=== PATIENT | female | born 1965 | race Caucasian/White ===

== ENCOUNTER → 2019-08-05 15:03 | Outpatient (BNVA) | payer SELFPAY | PROVIDERS: Family Provider Nurse Practitioner; PCP Nurse Practitioner; Visit Provider Nurse Practitioner | DX: E11.65 Type 2 diabetes mellitus with hyperglycemia (principal); Z79.4 Long term (current) use of insulin; I10 Essential (primary) hypertension; M50.020 Cervical disc disorder with myelopathy, mid-cervical region, unspecified level; M50.30 Other cervical disc degeneration, unspecified cervical region | CPT/HCPCS: 81000 ==

== ENCOUNTER → 2019-09-07 11:15 | Outpatient (BNVA) | payer SELFPAY | PROVIDERS: Family Provider Nurse Practitioner; PCP Nurse Practitioner; Visit Provider Nurse Practitioner | DX: E11.65 Type 2 diabetes mellitus with hyperglycemia (principal); Z79.4 Long term (current) use of insulin; I10 Essential (primary) hypertension | CPT/HCPCS: 80053; 80061; 83036; 84443 ==

== ENCOUNTER → 2019-11-30 15:26 | Outpatient (BNVA) | payer SELFPAY | PROVIDERS: Family Provider Nurse Practitioner; PCP Nurse Practitioner; Visit Provider Nurse Practitioner | DX: M54.9 Dorsalgia, unspecified (principal); M54.2 Cervicalgia; G89.29 Other chronic pain | CPT/HCPCS: 72072; 72100 ==

== ENCOUNTER → 2020-02-13 14:07 | Outpatient (BNVA) | payer SELFPAY | PROVIDERS: Family Provider Nurse Practitioner; PCP Nurse Practitioner; Visit Provider Nurse Practitioner | DX: E11.65 Type 2 diabetes mellitus with hyperglycemia (principal); Z79.4 Long term (current) use of insulin; M50.020 Cervical disc disorder with myelopathy, mid-cervical region, unspecified level; I10 Essential (primary) hypertension; F17.200 Nicotine dependence, unspecified, uncomplicated | CPT/HCPCS: 80053; 80061; 81000; 83036 ==

== ENCOUNTER → 2020-06-11 16:06 | Outpatient (BNVA) | payer SELFPAY | PROVIDERS: Family Provider Nurse Practitioner; PCP Nurse Practitioner; Visit Provider Nurse Practitioner | DX: E11.65 Type 2 diabetes mellitus with hyperglycemia (principal); J06.9 Acute upper respiratory infection, unspecified; Z79.4 Long term (current) use of insulin | CPT/HCPCS: 80053; 80061; 83036 ==

== ENCOUNTER → 2020-10-05 16:14 | Outpatient (BNVA) | payer SELFPAY | PROVIDERS: Family Provider Nurse Practitioner; PCP Nurse Practitioner; Visit Provider Nurse Practitioner Family | DX: M25.471 Effusion, right ankle (principal); M65.871 Other synovitis and tenosynovitis, right ankle and foot; M25.571 Pain in right ankle and joints of right foot | CPT/HCPCS: 73610 ==

== ENCOUNTER → 2020-10-22 11:11 | Outpatient (BNVA) | payer SELFPAY | PROVIDERS: Family Provider Nurse Practitioner; PCP Nurse Practitioner; Visit Provider Nurse Practitioner | DX: E11.65 Type 2 diabetes mellitus with hyperglycemia (principal); M50.020 Cervical disc disorder with myelopathy, mid-cervical region, unspecified level; I10 Essential (primary) hypertension; L30.8 Other specified dermatitis; Z79.4 Long term (current) use of insulin | CPT/HCPCS: 80053; 83036; 85025 ==

== ENCOUNTER → 2021-03-26 14:14 | Outpatient (BNVA) | payer SELFPAY | PROVIDERS: Family Provider Nurse Practitioner; PCP Nurse Practitioner; Visit Provider Nurse Practitioner | DX: E11.65 Type 2 diabetes mellitus with hyperglycemia (principal); Z79.4 Long term (current) use of insulin | CPT/HCPCS: 80053; 80061; 82043; 83036 ==

== ENCOUNTER → 2021-06-20 14:46 | Outpatient (BNVA) | payer SELFPAY | PROVIDERS: Family Provider Nurse Practitioner; PCP Nurse Practitioner; Visit Provider Nurse Practitioner | DX: L40.9 Psoriasis, unspecified (principal); E11.65 Type 2 diabetes mellitus with hyperglycemia; M50.020 Cervical disc disorder with myelopathy, mid-cervical region, unspecified level; Z79.4 Long term (current) use of insulin; I10 Essential (primary) hypertension | CPT/HCPCS: 81000 ==

== ENCOUNTER → 2021-06-24 08:39 | Outpatient (BNVA) | payer SELFPAY | PROVIDERS: Family Provider Nurse Practitioner; PCP Nurse Practitioner; Visit Provider Nurse Practitioner | DX: E11.65 Type 2 diabetes mellitus with hyperglycemia (principal); L40.9 Psoriasis, unspecified; Z79.4 Long term (current) use of insulin | CPT/HCPCS: 80053; 80061; 83036; 85025; 85651; 86140 ==

== ENCOUNTER → 2021-10-09 15:33 | Outpatient (BNVA) | payer SELFPAY | PROVIDERS: Family Provider Nurse Practitioner; PCP Nurse Practitioner; Visit Provider Nurse Practitioner | DX: M50.020 Cervical disc disorder with myelopathy, mid-cervical region, unspecified level (principal); E11.65 Type 2 diabetes mellitus with hyperglycemia; Z79.4 Long term (current) use of insulin; E78.2 Mixed hyperlipidemia; I10 Essential (primary) hypertension | CPT/HCPCS: 80053; 80061; 81000; 83036 ==

== ENCOUNTER → 2022-02-24 14:48 | Outpatient (BNVA) | payer BC, SELFPAY | PROVIDERS: Family Provider Nurse Practitioner; PCP Nurse Practitioner; Visit Provider Nurse Practitioner Family | DX: R50.9 Fever, unspecified (principal); Z20.822 Contact with and (suspected) exposure to COVID-19 | CPT/HCPCS: 87400; 87426 ==

== ENCOUNTER → 2022-03-07 10:22 | Outpatient (BNVA) | payer BC, SELFPAY | PROVIDERS: Family Provider Nurse Practitioner; PCP Nurse Practitioner; Visit Provider Nurse Practitioner | DX: E11.65 Type 2 diabetes mellitus with hyperglycemia (principal); Z79.4 Long term (current) use of insulin | CPT/HCPCS: 80053; 80061; 81000; 83036; 84443 ==

== ENCOUNTER → 2022-05-26 14:02 | Outpatient (BNVA) | payer OTHER, BC, SELFPAY | PROVIDERS: Family Provider Nurse Practitioner; PCP Nurse Practitioner; Visit Provider Nurse Practitioner Family | DX: E78.2 Mixed hyperlipidemia (principal); E11.65 Type 2 diabetes mellitus with hyperglycemia; Z79.4 Long term (current) use of insulin; I10 Essential (primary) hypertension; E66.9 Obesity, unspecified | CPT/HCPCS: 80053; 80061; 83036 ==

== ENCOUNTER → 2022-09-26 12:08 | Outpatient (BNVA) | payer OTHER, BC, SELFPAY | PROVIDERS: Family Provider Nurse Practitioner; PCP Nurse Practitioner Family; Visit Provider Nurse Practitioner Family | DX: E11.65 Type 2 diabetes mellitus with hyperglycemia (principal); Z79.4 Long term (current) use of insulin; I10 Essential (primary) hypertension; F19.91 Other psychoactive substance use, unspecified, in remission; E55.9 Vitamin D deficiency, unspecified | CPT/HCPCS: 80053; 80061; 82306; 82607; 83036; 83735; 84443; 85025; 86705; 86706; 86709; 86803; 87340; 87806 ==

== ENCOUNTER 2022-10-31 09:06 | Outpatient (CLI) | payer OTHER, BC, SELFPAY ==
[2022-10-31 09:50] LABS: Basophils # 0.1 10^3/uL (0.0-0.1); Basophils % 0.6 %; Eosinophils # 0.3 10^3/uL (0.0-0.8); Eosinophils % 3.5 %; Hematocrit 41.2 % (37.0-47.0); Hemoglobin 12.1 g/dL (11.5-15.3); Lymphocytes # 2.2 10^3/uL (0.8-4.8); Lymphocytes % 27.6 %; Mean Corpuscular HGB Conc 29.4 g/dL (30.0-36.0); Mean Corpuscular Volume 88.4 fl (81-99); Mean Platelet Volume 9.4 fL (7.4-10.4); Monocytes # 0.6 10^3/uL (0.2-0.9); Monocytes % 6.8 %; Neutrophils # 4.91 10^3/uL (1.8-7.7); Nucleated Red Blood Cells % 0 %; Platelet Count 237 10^3/cmm (130-400); Red Blood Count 4.66 10^6/uL (4.1-5.3); Red Cell Distribution Width 16.4 % (12.1-15.1); White Blood Count 8.1 10^3/uL (4.0-10.0)
[2022-10-31 10:14] LABS: Anion Gap 12.3 (5-19); Blood Urea Nitrogen 15 mg/dL (6-20); Calcium 9.9 mg/dL (8.5-10.5); Carbon Dioxide 28 mmol/L (22-29); Chloride 106 mmol/L (98-107); Glomerular Filtration Rate 65.2 mL/min (90-130); Glucose 215 mg/dL (65-115); Osmolality Calculated 301 mOsm/kg (285-295); Potassium 4.3 mmol/L (3.5-5.1); Sodium 142 mmol/L (136-145)
[2022-11-04 12:09] LABS: Quantiferon Mitogen >10.00 IU/mL; Quantiferon Nil 0.03 IU/mL; Quantiferon Plus TB1 0.01 IU/mL; Quantiferon Plus TB2 0.01 IU/mL; Quantiferon TB Gold NEGATIVE (NEGATIVE)
== END 2022-10-31 09:07 | disposition home or self-care (01) ==
PROVIDERS: Family Provider Nurse Practitioner; PCP Nurse Practitioner Family; Visit Provider Nurse Practitioner Family
DX: L40.0 Psoriasis vulgaris (principal)
CPT/HCPCS: 36415; 80048; 85025; 86480

== ENCOUNTER 2022-12-01 09:05 | Outpatient (CLI) | payer OTHER, BC, SELFPAY ==
--- NOTE | 2022-12-01 09:13 | XR_ITS ---
WS: [id number] Exam: XR ankle LT min 3V* [id number] Date/Time of Exam: 12/01/2022 9:18 AM Reason For Exam: M79.673 - Pain in unspecified foot No acute fracture or dislocation. Soft tissues are unremarkable. There appears to be thickening and c alcification in the Achilles tendon that might be seen with chronic tendinitis. Prominent calcaneal s purs. IMPRESSION: 1. No fracture or dislocation. 2. Thickening and calcification in the lower Achilles tendon that might be seen with chronic Achilles tendinitis.
== END 2022-12-01 09:06 | disposition home or self-care (01) ==
PROVIDERS: PCP Nurse Practitioner Family; Visit Provider Nurse Practitioner Family
DX: M65.872 Other synovitis and tenosynovitis, left ankle and foot (principal); M79.672 Pain in left foot
CPT/HCPCS: 73610

== ENCOUNTER → 2022-12-31 12:15 | Outpatient (BNVA) | payer OTHER, BC, SELFPAY | PROVIDERS: PCP Nurse Practitioner Family; Visit Provider Nurse Practitioner Family | DX: R53.83 Other fatigue; E11.65 Type 2 diabetes mellitus with hyperglycemia; Z79.4 Long term (current) use of insulin; E55.9 Vitamin D deficiency, unspecified; Z20.822 Contact with and (suspected) exposure to COVID-19 | CPT/HCPCS: 80053; 82306; 82607; 83036; 84443; 85025; 87426 ==

== ENCOUNTER 2023-01-19 23:39 | Emergency (ER) | payer OTHER, SELFPAY ==
[2023-01-19 23:45] VITALS: BP 182/100; PULSE 125; RESP 18; TEMP 36.8; O2SAT 96; BMI 34.0
--- NOTE | 2023-01-19 23:59 | CTR_ITS ---
PROCEDURE INFORMATION: Exam: CT Head Without Contrast Exam date and time: 01/20/2023 12:17 AM Age: 57 years old Clinical indication: Injury or trauma; Fall; Work related; Blunt trauma (contusions or hematomas); Without loss of consciousness; Additional info: Fall, fall from 2 steps, concrete, swelling to left posterior TECHNIQUE: Imaging protocol: Computed tomography of the head without contrast. Radiation optimization: All CT scans at this facility use at least one of these dose optimization techniques: automated exposure control; mA and/or kV adjustment per patient size (includes targeted exams where dose is matched to clinical indication); or iterative reconstruction. REPORTING DATA: Count of CT and Cardiac NM exams in prior 12 months: This patient has received 0 known CTs and 0 known cardiac nuclear medicine studies in the 12 months prior to the current study. COMPARISON: CT head wo con* [id number] 05/29/2017 6:40 PM RADIATION DOSE METRICS: Total DLP (mGy-cm): 1037.18 FINDINGS: Brain: Mild atrophy and mild white matter chronic microvascular changes are noted. No hemorrhage or evidence of acute infarction. Cerebral ventricles: No ventriculomegaly. Paranasal sinuses: Visualized sinuses are unremarkable. No fluid levels. Mastoid air cells: Visualized mastoid air cells are well aerated. Bones/joints: Unremarkable. No acute fracture. Soft tissues: Left parietal-occipital scalp hematoma is noted. CT/CT head wo con* [id number] IMPRESSION: No acute intracranial abnormality.
--- NOTE | 2023-01-20 00:04 | ED_ITS ---
HPI - Fall General: Chief Complaint: Fall Stated Complaint: head injury Time Seen by Provider: 01/19/23 23:40 Source: patient Mode of arrival: ambulatory Limitations: no limitations History of Present Illness: Patient presents to the emergency department today for evaluation treatment of injury sustained after falling while at work tonight. Patient states while she was working she was walking down some steps. She states she fell on the last 2nd or 3rd step of the staircase. She indicated she hit the back left side of her head on the concrete floor. Patient denies loss of consciousness but has had dizziness and tenderness of her head. Patient takes an 81 mg aspirin daily. She is denying nausea or vomiting at this time. She is not noticing any other areas of pain at this time- including neck or back pain per her report. She states she did try and get in contact with her employer but was unsuccessful. Patient received a ride to the emergency department from friends. Review of Systems General: Reports: 10 or more systems reviewed and unremarkable except in HPI and below PFSH ED PFSH: Medical History Cervical disc disorder with myelopathy of mid-cervical region Current smoker DDD (degenerative disc disease), cervical Diabetes mellitus with hyperglycemia, with long-term current use of insulin Essential (primary) hypertension Hyperlipidemia, mixed Noncompliance with dietary restriction Obesity Psoriasis of scalp Vitamin D insufficiency Surgical History History of appendectomy History of tonsillectomy at the age of 7 History of tubal ligation Family History Other Cancer Diabetes Stroke Social History Smoking and tobacco/nicotine status: former use of tobacco/nicotine Second hand smoke exposure: No Alcohol intake: never Substance/Drug Use: never Adopted: No Caregiver/support person: No Lives independently: Yes Household members: spouse Housing: House Marital status: Number of children: 4 service: No Current occupational status: unemployed Do you think of yourself as: Straight/Heterosexual Current gender identity: Female Physical Exam Const: COMMON NORMALS: no acute distress, patient oriented x3 and alert HENMT: HEAD & SCALP: contusion and scalp tenderness; no Merida's sign, no palpable skull fracture and no raccoon eyes FACE & SINUS: normal facial exam Eye: COMMON NORMALS: Equal, round and reactive pupils present, EOMs intact bilaterally and conjunctivae normal CONJUNCTIVA: Yes conjunctivae normal PUPIL: Yes Equal, round and reactive pupils present Neck/C-Spine: COMMON NORMALS: full ROM, no meningeal signs and no JVD Lymph: LYMPHATIC: no lymphadenopathy noted Resp: COMMON NORMALS: normal respiratory effort, No retractions and No use of accessory muscles Cardio: COMMON NORMALS: no JVD and regular rate RATE: regular rate : COMMON NORMALS: Yes no CVA tenderness BLADDER/KIDNEY EXAM: Yes no CVA tenderness Back/Pelvis: COMMON NORMALS: no CVA tenderness, thoracic and lumbar spine normal to inspection and thoraco-lumbar ROM normal Extremity: COMMON NORMALS: normal to inspection, full ROM and no pedal edema NARRATIVE EXTREMITY EXAM: Patient is independently ambulatory and weightbearing here in the emergency department. Neuro: COMMON NORMALS: patient oriented x3 SENSORIUM/ORIENTATION: Yes alert MENINGEAL SIGNS: Yes no meningeal signs CRANIAL NERVES: Yes CN normal except as noted SPEECH: speech normal Skin: COMMON NORMALS: no rashes or lesions noted and turgor normal GENERAL SKIN EXAM: no rashes or lesions noted and turgor normal OTHER: No signs of bruising or abrasions but there is a palpable area of swelling noted to the posterior left skull. No depression of the skull in this area. Course Vital Signs: Vital signs: Vital Signs Temperature 98.3 F 01/19/23 23:45 Pulse Rate 125 H 01/20/23 00:05 Respiratory Rate 18 01/20/23 00:05 Blood Pressure 157/87 01/20/23 00:05 Pulse Oximetry 94 01/20/23 00:05 Oxygen Delivery Me thod Room Air 01/20/23 00:05 MDM - Fall Medical Decision Making Given the large amount of swelling in the posterior scalp region and, since patient does take an 81 mg aspirin with associated symptoms of dizziness after her fall, we did proceed on with a CT examination of the head. CT reveals no signs of an intracranial abnormality or bleed but does confirm the findings of a scalp hematoma. Given the patient's symptoms after hitting her head, patient most likely has symptoms of a mild concussion and warned her that symptoms may last a few days or few weeks. For that reason she needs to be seen and reevaluated in 48 hours by her primary care doctor or the occupational medicine doctor to continue monitoring any residual concussion symptoms. Information regarding concussions provided as patient needs to rest in cool, quiet, and dark environments. She is encouraged to avoid excessive screen time. Encouraged prompt reevaluation to the emergency department for sudden onset worst headache of her life, blurred or loss of vision, dizziness without ability to stand or walk or profuse vomiting. [employer] representation was here in the emergency department and collected a urine drug screen. [employer] paperwork was filled out and I indicated that the patient needed to be seen and evaluated by primary care or an occupational medicine doctor of the employer's choice in 48 hours for reevaluation of concussion symptoms for patient would be able to be considered fit for work. Encouraged the patient to follow her employers [employer] protocol and encouraged her to reach out to her employer first thing in the morning to make any upcoming arrangements for follow-up as needed. Patient verbalized understanding and agreement to treatment plan. Differential Diagnosis Likely concussion without loss of consciousness; Unlikely syncope, dislocation of shoulder region, fracture of wrist or concussion with loss of consciousness Lab Data Radiology Impressions Head CT 01/19/23 23:59 IMPRESSION: No acute intracranial abnormality. All radiology interpretation(s) finalized by discharge Discharge Plan Discharge Patient Disposition: Home Clinical Impression: Fall from stairs, Contusion of scalp, Concussion Condition: Stable Prescriptions: New tizanidine 4 mg tablet 4 mg PO Q8H PRN (Reason: muscle spasticity) Qty: 21 0RF No Action aspirin [Aspir-81] 81 mg tablet,delayed release (DR/EC) 81 mg PO QDAY albuterol sulfate [Proventil HFA] 90 mcg/actuation HFA aerosol inhaler 2 puff INHALATION QID albuterol sulfate 2.5 mg /3 mL (0.083 %) solution for nebulization 2.5 mg INHALATION Q4H PRN (Reason: bronchospasm) Qty: 75 5RF (DME) pen needle, diabetic [BD Ultra-Fine Short Pen Needle] 31 gauge x 5/16 needle See Rx Instructions .ROUTE .MEDSUPPLY Qty: 150 5RF Rx Instructions: 5 TIMES DAY nitroglycerin 0.4 mg tablet, sublingual 0.4 mg SUBLINGUAL Q5M PRN (Reason: chest pain) Qty: 20 1RF Rx Instructions: 1 tab every 5 minutes up to 3 times hydrocortisone 2.5 % cream 1 applic topical BID PRN (Reason: skin irritation) Qty: 20 0RF Rx Instructions: Apply to ears twice daily Bevespi Aerosphere 9-4.8 mcg HFA aerosol inhaler 2 puff inhalation Q12H Qty: 10.7 2RF metformin 500 mg tablet extended release 24 hr 1,000 mg PO BID Qty: 120 2RF Farxiga 10 mg tablet 10 mg PO QAM Qty: 30 2RF cholecalciferol (vitamin D3) 50 mcg (2,000 unit) capsule 50 mcg PO DAILY Otezla Starter 10 mg (4)-20 mg (4)-30 mg (47) tablets,dose pack See Rx Instructions PO PER PKG DIR Qty: 55 0RF Rx Instructions: PO PER PKG DIR Levemir FlexPen 100 unit/mL (3 mL) insulin pen See Rx Instructions .ROUTE .COMPLEX Qty: 30 2RF Dose Instruction: INJECT 50 UNITS SUBCUTANEOUSLY TWICE DAILY Rx Instructions: INJECT 50 UNITS SUBCUTANEOUSLY TWICE DAILY cyclobenzaprine 10 mg tablet See Rx Instructions .ROUTE .COMPLEX Qty: 90 2RF Dose Instruction: TAKE ONE TABLET BY MOUTH THREE TIMES DAILY NEEDED FOR MUSCLE SPASMS Rx Instructions: TAKE ONE TABLET BY MOUTH THREE TIMES DAILY NEEDED FOR MUSCLE SPASMS Victoza 3-Walter 0.6 mg/0.1 mL (18 mg/3 mL) pen injector See Rx Instructions .ROUTE .COMPLEX Qty: 9 2RF Dose Instruction: INJECT 1.8mg SUBCUTANEOUSLY DAILY Rx Instructions: INJECT 1.8mg SUBCUTANEOUSLY DAILY isosorbide mononitrate 60 mg tablet extended release 24 hr See Rx Instructions .ROUTE .COMPLEX Qty: 30 2RF Dose Instruction: TAKE ONE TABLET BY MOUTH EVERY MORNING Rx Instructions: TAKE ONE TABLET BY MOUTH EVERY MORNING fenofibrate nanocrystallized 145 mg tablet See Rx Instructions .ROUTE .COMPLEX Qty: 30 2RF Dose Instruction: TAKE ONE TABLET BY MOUTH DAILY; STOP lipitor Rx Instructions: TAKE ONE TABLET BY MOUTH DAILY; STOP lipitor duloxetine 30 mg capsule,delayed release(DR/EC) See Rx Instructions .ROUTE .COMPLEX Qty: 60 2RF Dose Instruction: TAKE ONE CAPSULE BY MOUTH TWICE DAILY Rx Instructions: TAKE ONE CAPSULE BY MOUTH TWICE DAILY metoprolol tartrate 50 mg tablet See Rx Instructions .ROUTE .COMPLEX Qty: 60 2RF Dose Instruction: TAKE ONE TABLET BY MOUTH TWICE DAILY Rx Instructions: TAKE ONE TABLET BY MOUTH TWICE DAILY furosemide 20 mg tablet See Rx Instructions .ROUTE .COMPLEX Qty: 60 2RF Dose Instruction: TAKE ONE TABLET BY MOUTH TWICE DAILY Rx Instructions: TAKE ONE TABLET BY MOUTH TWICE DAILY potassium chloride [Klor-Con 8] 8 mEq tablet extended release See Rx Instructions .ROUTE .COMPLEX Qty: 30 2RF Dose Instruction: TAKE ONE CAPSULE BY MOUTH EVERY DAY Rx Instructions: TAKE ONE CAPSULE BY MOUTH EVERY DAY Discharge Orders: Discharge ED (Routine); Ordered 01/20/23 Ordered By: Kusum Macias Referrals: Joie Luz FNP [Primary Care Provider] - Discharge Diet: Usual diet Discharge Activity: Increase activity as tolerated Patient Instructions: Concussion/Head Injury - Adult, Post Concussion Syndrome (ED), Scalp Contusion in Adults (ED), Pain Management Activity Restrictions/Additional Instructions: CT today reveals no signs of any intracranial abnormality. However, it is obvious you have quite a bit of edema and swelling to the back of your head from the impact after your fall. Symptoms are consistent with mild concussion. Concussions can occur with or without loss of consciousness but are simply diagnosed by impact to the head resulting in any of the symptoms involving nausea, vomiting, blurry vision, dizziness, headache, brain fog, or mental fatigue. The symptoms can last a couple days or couple of weeks. I have given you some information regarding concussions for you to keep an eye on at home. If you develop the worst headache of your life, begin having profuse vomiting or so dizzy you cannot stand and walk you should be seen and reevaluated again. Otherwise, we do recommend a follow-up appoint with your primary care doctor every few days until symptoms of concussion fully resolve. We are providing you a prescription for some muscle relaxants. Since you are already taking aspirin daily, it is not recommended that you take additional NSAIDs. You may wish to use Tylenol and apply ice packs to the back of your head. Follow-up with occupational medicine per your employer's [employer] policy. Stand Alone Forms: Work/School Release Coding Level of Care Code ED Assistance Representative for Eduardo Varma
[2023-01-20 00:05] VITALS: BP 157/87; PULSE 125; RESP 18; O2SAT 94
[2023-01-20] MEDS: ketorolac 30 mg/mL INJ IVP (00:56)
[2023-01-20] MEDS: orphenadrine 30 mg/mL Inj 2 mL 60 MG IVP (00:56)
[2023-01-20 01:12] VITALS: BP 175/94; PULSE 126; RESP 18; O2SAT 96
== END 2023-01-20 01:13 | disposition home or self-care (01) ==
PROVIDERS: Emergency Provider Physician Assistant; PCP Nurse Practitioner Family
DX: S00.03XA Contusion of scalp, initial encounter (principal); S06.0XAA Concussion with loss of consciousness status unknown, initial encounter; Z79.82 Long term (current) use of aspirin; Z79.4 Long term (current) use of insulin; Z79.84 Long term (current) use of oral hypoglycemic drugs; E11.9 Type 2 diabetes mellitus without complications; I10 Essential (primary) hypertension; E78.2 Mixed hyperlipidemia; Z87.891 Personal history of nicotine dependence; W10.8XXA Fall (on) (from) other stairs and steps, initial encounter; Y99.0 Civilian activity done for income or pay
CPT/HCPCS: 70450; 96374; 96375; 99285; J1885; J2360

== ENCOUNTER → 2023-04-01 16:00 | Outpatient (BNVA) | payer OTHER, SELFPAY | PROVIDERS: PCP Nurse Practitioner Family; Visit Provider Nurse Practitioner Family | DX: F32.A Depression, unspecified (principal); G47.10 Hypersomnia, unspecified; E11.65 Type 2 diabetes mellitus with hyperglycemia; Z79.4 Long term (current) use of insulin; E55.9 Vitamin D deficiency, unspecified; F33.1 Major depressive disorder, recurrent, moderate; F43.10 Post-traumatic stress disorder, unspecified; I10 Essential (primary) hypertension; E78.2 Mixed hyperlipidemia; M54.9 Dorsalgia, unspecified; L40.9 Psoriasis, unspecified | CPT/HCPCS: 80053; 80061; 82306; 83036; 84443; 85025 ==

== ENCOUNTER → 2023-05-01 11:36 | Outpatient (BNVA) | payer OTHER, SELFPAY | PROVIDERS: PCP Nurse Practitioner Family; Visit Provider Nurse Practitioner Family | DX: M54.9 Dorsalgia, unspecified (principal); E11.65 Type 2 diabetes mellitus with hyperglycemia; Z79.4 Long term (current) use of insulin; E83.52 Hypercalcemia; Z79.899 Other long term (current) drug therapy | CPT/HCPCS: 82310; 83970; 85025 ==

== ENCOUNTER → 2023-05-06 13:41 | Outpatient (BNVA) | payer OTHER, SELFPAY | PROVIDERS: PCP Nurse Practitioner Family; Visit Provider Nurse Practitioner Family | DX: D64.9 Anemia, unspecified (principal) | CPT/HCPCS: 82607; 82728; 82746; 83550; 85025 ==

== ENCOUNTER → 2023-05-08 11:44 | Outpatient (BNVA) | payer OTHER, SELFPAY | PROVIDERS: PCP Nurse Practitioner Family; Visit Provider Nurse Practitioner Family | DX: M47.894 Other spondylosis, thoracic region (principal); M47.896 Other spondylosis, lumbar region; M47.897 Other spondylosis, lumbosacral region | CPT/HCPCS: 72072; 72100 ==

== ENCOUNTER → 2023-05-11 15:52 | Outpatient (BNVA) | payer OTHER, SELFPAY | PROVIDERS: PCP Nurse Practitioner Family; Visit Provider Nurse Practitioner Family | DX: M54.9 Dorsalgia, unspecified (principal); D64.9 Anemia, unspecified; Z79.899 Other long term (current) drug therapy | CPT/HCPCS: 82270 ==

== ENCOUNTER 2023-05-26 12:48 | Emergency (ER) | payer OTHER, SELFPAY ==
[2023-05-26 13:10] VITALS: BP 131/77; PULSE 84; RESP 18; TEMP 36.7; O2SAT 95; BMI 33.4
--- NOTE | 2023-05-26 13:20 | XRR_ITS ---
PROCEDURE INFORMATION: Exam: XR Left Wrist Exam date and time: 05/26/2023 1:48 PM Age: 57 years old Clinical indication: Injury or trauma; Fall; Blunt trauma (contusions or hematomas); Wrist; Left; Additional info: Fall/injury TECHNIQUE: Imaging protocol: Radiologic exam of the left wrist. Views: 3 or more views. COMPARISON: No relevant prior studies available. FINDINGS: Bones/joints: Mild negative ulnar variance. Mild triscaphe degenerative change. Mild distal radioulnar joint degenerative change. No acute fracture or dislocation. Soft tissues: Soft tissue swelling is present greatest along the radial aspect of the wrist and distal forearm. XR/XR wrist LT min 3V* [id number] IMPRESSION: Marked soft tissue swelling with no acute fracture evident.
--- NOTE | 2023-05-26 13:21 | ED_ITS ---
HPI - Extremity Injury (Upper) General: Chief Complaint: Extremity Injury, Upper Stated Complaint: Left wrist pain Time Seen by Provider: 05/26/23 13:00 Source: patient Mode of arrival: ambulatory Limitations: no limitations History of Present Illness: Patient is a 57-year-old female presents to ED today for evaluation of a left wrist injury that she sustained just prior to arrival. Patient states she was taking her dog out on the leash when the dog pulled/yanked on the leash and she somehow got her left wrist caught between a door and a door jam. No fall. She reports pain/swelling to left wrist joint. No other injuries reported at this time. Denies numbness/tingling/loss of sensation/color or temperature changes. MD complaint: injury to: left and wrist Onset (ago): hour(s) Other Extremity Injury: Left: wrist Place: home Severity: moderate Relieving factors: immobilization Exacerbating factors: movement of extremity Context: direct blow and crush Associated symptoms: Reports no associated symptoms Review of Systems Musc: Reports: joint pain (L wrist), joint swelling (L wrist) and limited range of motion (L wrist); Denies: extremity pain, extremity swelling, joint redness or joint warmth Neuro: Denies: numbness in extremities or sensory changes PFSH ED PFSH: Medical History Hyperlipidemia, mixed Psoriasis of scalp Noncompliance with dietary restriction Cervical disc disorder with myelopathy of mid-cervical region Diabetes mellitus with hyperglycemia, with long-term current use of insulin Essential (primary) hypertension DDD (degenerative disc disease), cervical Vitamin D insufficiency Current smoker Obesity Surgical History History of tubal ligation History of appendectomy History of tonsillectomy at the age of 7 Family History Other Cancer Diabetes Stroke Social History Smoking and tobacco/nicotine status: former use of tobacco/nicotine Second hand smoke exposure: No Alcohol intake: never Substance/Drug Use: never Adopted: No Caregiver/support person: No Lives independently: Yes Household members: spouse Housing: House Marital status: Number of children: 4 service: No Current occupational status: unemployed Do you think of yourself as: Straight/Heterosexual Current gender identity: Female Physical Exam Const: COMMON NORMALS: no acute distress, patient oriented x3, no limitations, alert and well nourished Extremity: COMMON NORMALS: capillary refill normal GENERAL: Yes normal exam except as noted LEFT UPPER EXTREMITY: Yes wrist (significant swelling throughout L wrist; no obvious bony deformity) Left wrist: Yes ROM (limited secondary to pain) and Yes neurovascular exam (normal) Neuro: COMMON NORMALS: patient oriented x3, moves all extremities, no focal motor deficits and no sensory deficits noted SENSORIUM/ORIENTATION: Yes alert Skin: COMMON NORMALS: no rashes or lesions noted GENERAL SKIN EXAM: no rashes or lesions noted TRAUMA: no lacerations or abrasions Course Vital Signs: Vital signs: Vital Signs Temperature 98.1 F 05/26/23 13:10 Pulse Rate 84 05/26/23 13:10 Respiratory Rate 18 05/26/23 13:10 Blood Pressure 131/77 05/26/23 13:10 Pulse Oximetry 95 05/26/23 13:10 Oxygen Delivery Me thod Room Air 05/26/23 13:10 MDM - Extremity Injury (Upper) Medical Decision Making XR negative. Recommend RICE therapy. Follow up with PCP in 1-2 weeks for continued pain. Lab Data Radiology Impressions Wrist X-Ray 05/26/23 13:20 IMPRESSION: Marked soft tissue swelling with no acute fracture evident. All radiology interpretation(s) finalized by discharge Discharge Plan Discharge Patient Disposition: Home Clinical Impression: Contusion of left wrist Qualifiers: Encounter type: initial encounter Qualified Code(s): S60.212A - Contusion of left wrist, initial encounter Condition: Stable Prescriptions: No Action aspirin [Aspir-81] 81 mg tablet,delayed release (DR/EC) 81 mg PO QDAY (DME) pen needle, diabetic [BD Ultra-Fine Short Pen Needle] 31 gauge x 5/16 needle See Rx Instructions .ROUTE .MEDSUPPLY Qty: 150 5RF Rx Instructions: 5 TIMES DAY nitroglycerin 0.4 mg tablet, sublingual 0.4 mg SUBLINGUAL Q5M PRN (Reason: chest pain) Qty: 20 1RF Rx Instructions: 1 tab every 5 minutes up to 3 times Bevespi Aerosphere 9-4.8 mcg HFA aerosol inhaler 2 puff inhalation Q12H Qty: 10.7 2RF albuterol sulfate [Ventolin HFA] 90 mcg/actuation HFA aerosol inhaler 2 puff inhalation QID PRN (Reason: shortness of breath or wheezing) Qty: 8.5 2RF hydrocortisone 2.5 % cream 1 applic topical BID PRN (Reason: skin irritation) Qty: 20 0RF Rx Instructions: Apply to ears twice daily Farxiga 10 mg tablet 10 mg PO QAM Qty: 30 5RF cholecalciferol (vitamin D3) 50 mcg (2,000 unit) capsule 50 mcg PO DAILY gabapentin 100 mg capsule 100 mg PO BID 30 Days Qty: 60 0RF potassium chloride [Klor-Con 8] 8 mEq tablet extended release See Rx Instructions .ROUTE .COMPLEX Qty: 30 2RF Dose Instruction: TAKE ONE CAPSULE BY MOUTH EVERY DAY Rx Instructions: TAKE ONE CAPSULE BY MOUTH EVERY DAY cyclobenzaprine 10 mg tablet See Rx Instructions .ROUTE .COMPLEX Qty: 90 2RF Dose Instruction: TAKE ONE TABLET BY MOUTH THREE TIMES DAILY NEEDED FOR MUSCLE SPASMS Rx Instructions: TAKE ONE TABLET BY MOUTH THREE TIMES DAILY NEEDED FOR MUSCLE SPASMS Levemir FlexPen 100 unit/mL (3 mL) insulin pen See Rx Instructions .ROUTE .COMPLEX Qty: 30 2RF Dose Instruction: INJECT 50 UNITS SUBCUTANEOUSLY TWICE DAILY Rx Instructions: INJECT 30 UNITS SUBCUTANEOUSLY TWICE DAILY fenofibrate nanocrystallized 145 mg tablet See Rx Instructions .ROUTE .COMPLEX Qty: 30 2RF Dose Instruction: TAKE ONE TABLET BY MOUTH DAILY; STOP lipitor Rx Instructions: TAKE ONE TABLET BY MOUTH DAILY; STOP lipitor duloxetine 30 mg capsule,delayed release(DR/EC) See Rx Instructions .ROUTE .COMPLEX Qty: 60 2RF Dose Instruction: TAKE ONE CAPSULE BY MOUTH TWICE DAILY Rx Instructions: TAKE ONE CAPSULE BY MOUTH TWICE DAILY furosemide 20 mg tablet See Rx Instructions .ROUTE .COMPLEX Qty: 60 2RF Dose Instruction: TAKE ONE TABLET BY MOUTH TWICE DAILY Rx Instructions: TAKE ONE TABLET BY MOUTH TWICE DAILY metoprolol tartrate 50 mg tablet See Rx Instructions .ROUTE .COMPLEX Qty: 60 2RF Dose Instruction: TAKE ONE TABLET BY MOUTH TWICE DAILY Rx Instructions: TAKE ONE TABLET BY MOUTH TWICE DAILY isosorbide mononitrate 60 mg tablet extended release 24 hr See Rx Instructions .ROUTE .COMPLEX Qty: 30 2RF Dose Instruction: TAKE ONE TABLET BY MOUTH EVERY MORNING Rx Instructions: TAKE ONE TABLET BY MOUTH EVERY MORNING Otezla 30 mg tablet 30 mg PO BID Qty: 60 5RF metformin 500 mg tablet extended release 24 hr See Rx Instructions .ROUTE .COMPLEX Qty: 120 2RF Dose Instruction: TAKE TWO TABLETS BY MOUTH TWICE DAILY Rx Instructions: TAKE TWO TABLETS BY MOUTH TWICE DAILY Discharge Orders: Discharge ED (Routine); Ordered 05/26/23 Ordered By: Lu Johnson Referrals: Joie Luz FNP [Primary Care Provider] - Patient Instructions: Contusion Activity Restrictions/Additional Instructions: As we discussed you need to ice the wrist for 15 to 20 minutes every 1-2 hours, wear your compression bandage, elevate the extremity is much as possible, and rest until the wrist heals. You need to follow-up with your primary care provider in 1 to 2 weeks if you continue to have pain. Coding Level of Care Code ED Roller Inspector for Eduardo Varma
[2023-05-26 14:30] VITALS: PULSE 85; RESP 16; O2SAT 97
== END 2023-05-26 14:31 | disposition home or self-care (01) ==
PROVIDERS: Emergency Provider Physician Assistant; PCP Nurse Practitioner Family
DX: S60.212A Contusion of left wrist, initial encounter (principal); Z79.82 Long term (current) use of aspirin; Z79.4 Long term (current) use of insulin; Z79.84 Long term (current) use of oral hypoglycemic drugs; E78.2 Mixed hyperlipidemia; E11.9 Type 2 diabetes mellitus without complications; I10 Essential (primary) hypertension; Z87.891 Personal history of nicotine dependence; W23.2XXA Caught, crushed, jammed or pinched between a moving and stationary object, initial encounter
CPT/HCPCS: 73110; 99283

== ENCOUNTER 2023-06-10 08:01 | Day surgery (SDC) | payer OTHER, SELFPAY ==
[2023-06-10 08:32] VITALS: BP 178/120; PULSE 101; RESP 16; TEMP 36.8; O2SAT 97; BMI 33.4
[2023-06-10] MEDS: sodium chloride 0.9% 1,000 ML 30 ML IV (08:41)
[2023-06-10 08:47] LABS: Glucose Point of Care 112 mg/dL (70-110)
--- NOTE | 2023-06-10 09:38 | ANES.PREANE2 ---
Pre-Anesthetic Assessment Height/Weight: Height 1.55 m Weight 80.286 kg Temp Pulse Resp BP Pulse Ox O2 Del Method 98.2 F 101 H 16 178/120 97 Room Air 06/10/23 08:32 06/10/23 08:32 06/10/23 08:32 06/10/23 08:32 06/10/23 08:32 06/10/23 08:32 Preop Diagnosis: anemia/screening Operation Date: 06/10/23 09:45 Proposed Procedures p [id number] egd [id number] colon G0105 screen colon H risk D50.9(Not Applicable) - Thom Andrea DO s Colonoscopy(Not Applicable) - Thom Andrea DO Was Clonidine taken within 24 hours: N/A Last intake: Intake Last Liquid Date 06/09/23 Last Liquid Time 23:30 Last Solid Date 06/09/23 Last Solid Time 08:00 Social No alcohol and No tobacco Quit smoking 3 years ago. Recovering meth addict Exam alert, oriented x 3, clear to auscultation bilaterally and regular rate & rhythm Airway Submandibular: within normal limits Cervical ROM: within normal limits Mallampati: Class II Dentition: false History/ROS No significant history except as noted and No significant complaints Pulmonary Chronic Obstructive Pulmonary Disease CV/HEM Hypertension None reported Hepatic None reported GI Gastroesophageal Reflux Disease Metabolic Diabetes Mellitus and Morbid Obesity Musc/sk Osteoarthritis/DJD Anesthetic Plan ASA status: 3 Anesthesia: Anesthesia Evaluation and MAC Risk of > 500 ml blood loss (7ml/kg in children): No Medications/Allergies Home Medications Medication Instructions Recorded Confirmed Last Taken Type aspirin 81 mg tablet,delayed 81 mg PO QDAY 04/26/19 06/08/23 06/07/23 History release (Aspir-) pen needle, diabetic 31 gauge x #150 ea 03/26/21 06/08/23 Unknown Rx 08/19 (BD Ultra-Fine Short Pen Needle) cholecalciferol (vitamin D3) 50 50 mcg PO DAILY 09/26/22 06/08/23 06/08/23 History mcg (2,000 unit) capsule nitroglycerin 0.4 mg sublingual 0.4 mg sublingual Q5M PRN chest 12/31/22 06/08/23 Unknown Rx tablet pain #20 tabs albuterol sulfate 90 mcg/actuation 2 puff inhalation QID PRN 01/27/23 06/08/23 1 Month Ago Rx aerosol inhaler (Ventolin HFA) shortness of breath or wheezing ~05/10/23 #8.5 grams glycopyrrolate 9 mcg-formoterol 2 puff inhalation Q12H #10.7 grams 01/27/23 06/08/23 1 Month Ago Rx 4.8 mcg HFA aerosol inhaler ~05/10/23 (Bevespi Aerosphere) dapagliflozin propanediol 10 mg 10 mg PO QAM #30 tabs 04/01/23 06/08/23 06/08/23 Rx tablet (Farxiga) apremilast 30 mg tablet (Otezla) 30 mg PO BID #60 tabs 04/24/23 06/08/23 06/08/23 Rx gabapentin 100 mg capsule 100 mg PO BID 30 days #60 caps 05/22/23 06/08/23 06/08/23 Rx insulin detemir U-100 100 unit/mL See Rx Instructions .Route 05/31/23 06/08/23 06/08/23 Rx (3 mL) subcutaneous pen (Levemir .COMPLEX #30 mL FlexPen) cyclobenzaprine 10 mg tablet 10 mg PO TID PRN Muscle Spasm 06/08/23 06/08/23 06/08/23 History duloxetine 30 mg capsule,delayed 30 mg PO BID 06/08/23 06/08/23 06/08/23 History release fenofibrate nanocrystallized 145 145 mg PO DAILY 06/08/23 06/08/23 06/08/23 History mg tablet furosemide 20 mg tablet 20 mg PO BID 06/08/23 06/08/23 06/08/23 History isosorbide mononitrate 60 mg 60 mg PO DAILY 06/08/23 06/08/23 06/08/23 History tablet,extended release 24 hr metformin 500 mg tablet,extended 500 mg PO BID 06/08/23 06/08/23 06/08/23 History release 24 hr metoprolol tartrate 50 mg tablet 50 mg PO DAILY 06/08/23 06/08/23 06/08/23 History potassium chloride 8 mEq 20 meq PO DAILY 06/08/23 06/08/23 06/08/23 History tablet,extended release (Klor-Con) Allergies Allergy/AdvReac Type Severity Reaction Status Date / Time oxycodone Allergy ALGY-Difficulty Verified 05/26/23 13:08 Breathing lisinopril AdvReac cough Verified 05/22/23 15:18 Current Medications Generic Name Dose Route Start Last Admin Trade Name Prabhjot PRN Reason Stop Dose Admin Sodium Chloride 1,000 mls @ 30 mls/hr 06/10/23 06:30 06/10/23 08:41 Sodium Chloride 0.9% IV 06/11/23 06:29 30 mls/hr .Q24H FREDERIC Administration PFSH Anesthesia Medical History Hyperlipidemia, mixed Psoriasis of scalp Noncompliance with dietary restriction Cervical disc disorder with myelopathy of mid-cervical region Diabetes mellitus with hyperglycemia, with long-term current use of insulin Essential (primary) hypertension DDD (degenerative disc disease), cervical Vitamin D insufficiency Current smoker Obesity Surgical History History of tubal ligation History of appendectomy History of tonsillectomy at the age of 7 Family History Other Cancer Diabetes Stroke Social History Smoking and tobacco/nicotine status: former use of tobacco/nicotine Second hand smoke exposure: No Alcohol intake: never Substance/Drug Use: never Adopted: No Caregiver/support person: No Lives independently: Yes Household members: spouse Housing: House Marital status: Number of children: 4 service: No Current occupational status: unemployed Do you think of yourself as: Straight/Heterosexual Current gender identity: Female Data Anesthesia Cardiac Studies: No Data to Display
--- NOTE | 2023-06-10 10:03 | W.PM.OPSUD ---
Surgery/Procedure H&P Update DATE OF PROCEDURE: June 10, 2023 DATE H&P PERFORMED: 05/21/23 H&P UPDATE INFORMATION: I have reviewed H&P completed within last 30 days, I have examined patient prior to procedure and No changes to prior documentation PREOP DIAGNOSIS: anemia/screening PLANNED PROCEDURE: Operation Date: 06/10/23 09:45 Proposed Procedures p 06494 egd [id number] colon G0105 screen colon H risk D50.9(Not Applicable) - DO clari Wahl Colonoscopy(Not Applicable) - Thom Andrea DO
[2023-06-10 10:30] VITALS: BP 127/73; PULSE 97; RESP 20; TEMP 36.4; O2SAT 97
[2023-06-10 10:44] VITALS: BP 129/70; PULSE 92; RESP 18; O2SAT 95
--- NOTE | 2023-06-10 14:58 | ANE.PACU2 ---
Inpatient post-anesthesia follow up: Vital signs: Temperature 97.6 F Pulse Rate 92 Respiratory Rate 18 Blood Pressure 129/70 Pulse Oximetry 95 Oxygen Delivery Me thod Room Air Oxygen Flow Rate 3 Fraction of Inspir ed Oxygen Additional Comments: no apparent anesthetic complications noted
== END 2023-06-10 12:57 | disposition home or self-care (01) ==
PROVIDERS: PCP Nurse Practitioner Family; Visit Provider Surgery
PROC: 0DJ08ZZ Inspection of Upper Intestinal Tract, Via Natural or Artificial Opening Endoscopic (ICD-10-PCS; CPT 43235; principal; 2023-06-10 09:45)
PROC: 0DJD8ZZ Inspection of Lower Intestinal Tract, Via Natural or Artificial Opening Endoscopic (ICD-10-PCS; CPT 45378; 2023-06-10 09:45)
DX: D50.9 Iron deficiency anemia, unspecified (principal); K57.30 Diverticulosis of large intestine without perforation or abscess without bleeding; K64.8 Other hemorrhoids; Z87.891 Personal history of nicotine dependence; J44.9 Chronic obstructive pulmonary disease, unspecified; I10 Essential (primary) hypertension; K21.9 Gastro-esophageal reflux disease without esophagitis; E11.9 Type 2 diabetes mellitus without complications; E66.01 Morbid (severe) obesity due to excess calories; Z68.33 Body mass index [BMI] 33.0-33.9, adult; Z79.82 Long term (current) use of aspirin; Z79.4 Long term (current) use of insulin; Z79.84 Long term (current) use of oral hypoglycemic drugs; E78.2 Mixed hyperlipidemia
CPT/HCPCS: 36416; 43239; 45378; 82962; 88305; J2704; J7030

== ENCOUNTER → 2023-06-12 10:31 | Outpatient (BNVA) | payer OTHER, SELFPAY | PROVIDERS: PCP Nurse Practitioner Family; Visit Provider Nurse Practitioner Family | DX: M25.532 Pain in left wrist (principal) | CPT/HCPCS: 73110 ==

== ENCOUNTER 2023-06-16 09:54 | Day surgery (SDC) | payer OTHER, SELFPAY ==
[2023-06-16 10:22] VITALS: BP 151/86; PULSE 72; RESP 18; TEMP 36.6; O2SAT 96
[2023-06-16 10:25] VITALS: BMI 33.6
--- NOTE | 2023-06-16 10:27 | W.PM.OPSUD ---
Surgery/Procedure H&P Update DATE OF PROCEDURE: June 16, 2023 DATE H&P PERFORMED: 05/21/23 H&P UPDATE INFORMATION: I have reviewed H&P completed within last 30 days, I have examined patient prior to procedure and No changes to prior documentation PLANNED PROCEDURE: Operation Date: 06/16/23 11:30 Proposed Procedures p 89657 lap umbilical hernia repair with mesh K42.9(Not Applicable) - Thom Andrea, DO
[2023-06-16] MEDS: sodium chloride 0.9% 1,000 ML 30 ML IV (10:41)
--- NOTE | 2023-06-16 10:44 | ANES.PREANE2 ---
Pre-Anesthetic Assessment Height/Weight: Height 1.55 m Weight 80.739 kg Temp Pulse Resp BP Pulse Ox O2 Del Method 97.8 F 72 18 151/86 96 Room Air 06/16/23 10:22 06/16/23 10:22 06/16/23 10:22 06/16/23 10:22 06/16/23 10:22 06/16/23 10:28 Operation Date: 06/16/23 11:30 Proposed Procedures p 26171 lap umbilical hernia repair with mesh K42.9(Not Applicable) - Thom Andrea DO Familial anesthetic complications: None Was Beta Kala taken within 24 hours: N/A Was Clonidine taken within 24 hours: N/A Last intake: Intake Last Liquid Date 06/15/23 Last Liquid Time 11:55 Last Solid Date 06/15/23 Last Solid Time 18:00 Social Tobacco and No alcohol Exam alert, oriented x 3, clear to auscultation bilaterally and regular rate & rhythm Airway Mallampati: Class II Dentition: false CV/HEM Hypertension GI Gastroesophageal Reflux Disease Metabolic Diabetes Mellitus Anesthetic Plan ASA status: 3 Anesthesia: General Risk of > 500 ml blood loss (7ml/kg in children): No Medications/Allergies Home Medications Medication Instructions Recorded Confirmed Last Taken Type aspirin 81 mg tablet,delayed 81 mg PO QDAY 04/26/19 06/15/23 06/13/23 History release (Aspir-) pen needle, diabetic 31 gauge x #150 ea 03/26/21 06/12/23 Unknown Rx 5/16 (BD Ultra-Fine Short Pen Needle) cholecalciferol (vitamin D3) 50 50 mcg PO DAILY 09/26/22 06/15/23 06/15/23 History mcg (2,000 unit) capsule nitroglycerin 0.4 mg sublingual 0.4 mg sublingual Q5M PRN chest 12/31/22 06/15/23 Unknown Rx tablet pain #20 tabs albuterol sulfate 90 mcg/actuation 2 puff inhalation QID PRN 01/27/23 06/15/23 1 Month Ago Rx aerosol inhaler (Ventolin HFA) shortness of breath or wheezing ~05/10/23 #8.5 grams glycopyrrolate 9 mcg-formoterol 2 puff inhalation Q12H #10.7 grams 01/27/23 06/15/23 1 Month Ago Rx 4.8 mcg HFA aerosol inhaler ~05/10/23 (Bevespi Aerosphere) dapagliflozin propanediol 10 mg 10 mg PO QAM #30 tabs 04/01/23 06/15/23 06/15/23 Rx tablet (Farxiga) apremilast 30 mg tablet (Otezla) 30 mg PO BID #60 tabs 04/24/23 06/15/23 06/15/23 Rx gabapentin 100 mg capsule 100 mg PO BID 30 days #60 caps 05/22/23 06/15/23 06/15/23 Rx insulin detemir U-100 100 unit/mL See Rx Instructions .Route 05/31/23 06/15/23 06/15/23 Rx (3 mL) subcutaneous pen (Levemir .COMPLEX #30 mL FlexPen) cyclobenzaprine 10 mg tablet 10 mg PO TID PRN Muscle Spasm 06/08/23 06/15/23 06/15/23 History duloxetine 30 mg capsule,delayed 30 mg PO BID 06/08/23 06/15/23 06/15/23 History release fenofibrate nanocrystallized 145 145 mg PO DAILY 06/08/23 06/15/23 06/15/23 History mg tablet furosemide 20 mg tablet 20 mg PO BID 06/08/23 06/15/23 06/15/23 History isosorbide mononitrate 60 mg 60 mg PO DAILY 06/08/23 06/15/23 06/15/23 History tablet,extended release 24 hr metformin 500 mg tablet,extended 500 mg PO BID 06/08/23 06/15/23 06/15/23 History release 24 hr metoprolol tartrate 50 mg tablet 50 mg PO DAILY 06/08/23 06/15/23 06/15/23 History potassium chloride 8 mEq 20 meq PO DAILY 06/08/23 06/15/23 06/15/23 History tablet,extended release (Klor-Con) hydrocortisone 2.5 % topical cream 1 applic [place] QID 3 weeks #30 grams 06/10/23 06/15/23 Unknown Rx with perineal applicator (Procto-Med ) amoxicillin 875 mg tablet 875 mg PO Q12H 2 weeks #28 tabs 06/16/23 Unknown Rx clarithromycin 500 mg tablet 500 mg PO BID 14 days #28 tabs 06/16/23 Unknown Rx pantoprazole 40 mg tablet,delayed 40 mg PO BID 14 days #28 tabs 06/16/23 Unknown Rx release (Protonix) Allergies Allergy/AdvReac Type Severity Reaction Status Date / Time oxycodone Allergy ALGY-Difficulty Verified 06/12/23 10:11 Breathing lisinopril AdvReac cough Verified 06/12/23 10:11 [facility] Anesthesia Medical History Hyperlipidemia, mixed Psoriasis of scalp Noncompliance with dietary restriction Cervical disc disorder with myelopathy of mid-cervical region Diabetes mellitus with hyperglycemia, with long-term current use of insulin Essential (primary) hypertension DDD (degenerative disc disease), cervical Vitamin D insufficiency Current smoker Obesity Surgical History History of tubal ligation History of appendectomy History of tonsillectomy at the age of 7 Family History Other Cancer Diabetes Stroke Social History Smoking and tobacco/nicotine status: former use of tobacco/nicotine Second hand smoke exposure: No Alcohol intake: never Substance/Drug Use: never Adopted: No Caregiver/support person: No Lives independently: Yes Household members: spouse Housing: House Marital status: Number of children: 4 service: No Current occupational status: unemployed Do you think of yourself as: Straight/Heterosexual Current gender identity: Female Data Anesthesia Cardiac Studies: No Data to Display
[2023-06-16] MEDS: ceFAZolin 2,000 MG in sodium chloride 0.9% (plus) 50 ML 100 MG IV (10:58)
[2023-06-16] MEDS: BUPivacaine 0.25% INJ 10 mL INJECTION (11:26)
[2023-06-16] MEDS: lidocaine-epi 2% PF 1:200,000 20 mL SDV XX (11:27)
[2023-06-16 11:32] LABS: Anion Gap 14.4 (5-19); Blood Urea Nitrogen 14 mg/dL (6-20); Carbon Dioxide 26 mmol/L (22-29); Chloride 102 mmol/L (98-107); Creatinine Clr Calc Pharmacy 87.4105; Glomerular Filtration Rate 86.9 mL/min (90-130); Glucose 165 mg/dL (65-115); Osmolality Calculated 290 mOsm/kg (285-295); Potassium 4.4 mmol/L (3.5-5.1); Sodium 138 mmol/L (136-145)
--- NOTE | 2023-06-16 11:33 | PM.OP ---
Operative Report Date of procedure: June 16, 2023 Pre-op diagnosis: Incarcerated umbilical hernia Post-op diagnosis: same Procedure done: Laparoscopic repair of incarcerated umbilical hernia with mesh Implants: 11 cm round Ventralight mesh Specimens removed/disposition: Hernia sac Surgeon: Thom Andrea DO Anesthesia: General Estimated blood loss (mL): 5 Complications: None apparent Brief History: This very pleasant 57-year-old female who presented my office with a painful incarcerated umbilical hernia containing omental fat. Laparoscopic repair with mesh was indicated. The risk and benefits were explained and documented. Procedure: Patient was wheeled into the operative room and placed on the OR table in a supine position. Abdomen was inspected prepped and draped in usual sterile fashion. Time-out was performed and all present were in agreement. A 15 blade scalp was used to make a 5 millimeter incision left upper quadrant. A Veress needle was placed into the incision and intra-abdominal insufflation was brought to 15 millimeters of mercury. A 12 millimeter trocar was placed into the left lower quadrant. The energy but device was then used to cut out the hernia sac. The hernia defect measured 1.5 cm in diameter. An 11 cm Ventralight mesh was placed into the abdomen and brought up through the umbilicus using an the Ryan-Roya. The mesh was then tacked in place in a double crown fashion. The skeleton of the mesh was removed via the left lower quadrant. The hernia sac was then removed from the abdomen via the left lower quadrant. The left lower quadrant port site was closed with an 0 Vicryl suture in a Ryan-Roya in a [id number] fashion. Incisions were closed with 4 O Vicryl in a subcuticular interrupted fashion. Skin glue was applied. A dressing that included cotton balls and a Tegaderm was placed over the umbilicus. Patient tolerated the procedure well.
[2023-06-16 11:38] LABS: Calcium 10.3 mg/dL (8.5-10.5)
[2023-06-16 11:56] VITALS: BP 137/71; PULSE 89; RESP 18; TEMP 36.2; O2SAT 91
[2023-06-16 12:01] VITALS: BP 132/88; PULSE 85; RESP 18; O2SAT 97
[2023-06-16 12:12] VITALS: BP 135/82; PULSE 86; RESP 18; O2SAT 97
[2023-06-16 12:17] VITALS: BP 130/77; PULSE 79; RESP 18; O2SAT 96
[2023-06-16 12:30] VITALS: BP 132/76; PULSE 78; RESP 18; TEMP 36.2; O2SAT 95
[2023-06-16] MEDS: ondansetron 2 mg/ML SDV 2 mL 4 MG IVP (12:33)
[2023-06-16] MEDS: HYDROcodone-acetaminophen 7.5-325 mg Tablet 1 TAB PO (13:15)
--- NOTE | 2023-06-16 13:40 | ANE.PACU2 ---
Inpatient post-anesthesia follow up: Airway intact: Yes Vital signs: Temperature 97.2 F Pulse Rate 78 Respiratory Rate 18 Blood Pressure 132/76 Pulse Oximetry 95 Oxygen Delivery Me thod Room Air Oxygen Flow Rate 4 Fraction of Inspir ed Oxygen Hydration adequate: Yes Nausea and vomiting: No Pain level: 1 Mental status: Baseline
[2023-06-17 12:09] LABS: Glucose Point of Care 167 mg/dL (70-110)
== END 2023-06-16 13:40 | disposition home or self-care (01) ==
PROVIDERS: Anesthesiology; PCP Nurse Practitioner Family; Visit Provider Surgery
PROC: 0WQF4ZZ Repair Abdominal Wall, Percutaneous Endoscopic Approach (ICD-10-PCS; CPT 49592; principal; 2023-06-16 11:20)
DX: K42.0 Umbilical hernia with obstruction, without gangrene (principal); I10 Essential (primary) hypertension; K21.9 Gastro-esophageal reflux disease without esophagitis; E11.9 Type 2 diabetes mellitus without complications; Z79.82 Long term (current) use of aspirin; Z79.84 Long term (current) use of oral hypoglycemic drugs; E78.2 Mixed hyperlipidemia; E66.9 Obesity, unspecified; Z68.33 Body mass index [BMI] 33.0-33.9, adult; Z87.891 Personal history of nicotine dependence
CPT/HCPCS: 49592; 36416; 80048; 82962; 88302; C1781; J0690; J2250; J2405; J2704; J2710; J3010; J3490; J7030

== ENCOUNTER 2023-07-27 20:00 | Outpatient (CLI) | payer OTHER, BC, SELFPAY | END 2023-07-27 20:01 | disposition home or self-care (01) | LOC: SLEEP 07-28 04:41 | PROVIDERS: PCP Nurse Practitioner Family; Visit Provider Nurse Practitioner Family | DX: G47.33 Obstructive sleep apnea (adult) (pediatric) (principal) | CPT/HCPCS: 95810 ==

== ENCOUNTER → 2023-08-17 16:34 | Outpatient (BNVA) | payer BC, MEDICAID, SELFPAY | PROVIDERS: PCP Nurse Practitioner Family; Visit Provider Nurse Practitioner Family | DX: E11.65 Type 2 diabetes mellitus with hyperglycemia (principal); Z79.4 Long term (current) use of insulin; E55.9 Vitamin D deficiency, unspecified; D50.9 Iron deficiency anemia, unspecified | CPT/HCPCS: 80053; 80061; 82306; 82607; 83036; 83550; 84443; 85025 ==

== ENCOUNTER → 2023-09-21 10:36 | Outpatient (BNVA) | payer BC, MEDICAID, SELFPAY | PROVIDERS: PCP Nurse Practitioner Family; Visit Provider Nurse Practitioner Family | DX: R50.9 Fever, unspecified (principal) | CPT/HCPCS: 81003; 87071; 87086; 87400; 87426; 87880 ==

== ENCOUNTER 2023-10-06 07:43 | Outpatient (CLI) | payer BC, MEDICAID, SELFPAY ==
--- NOTE | 2023-10-06 07:45 | USCV_ITS ---
Jovanna Canales Age: 57 Gender: F : 1965 Exam Date: 10/06/2023 08:06 Ordering Phys: Joie Luz [employer] Technologist: FRANCISCA Exam Location: [facility] – [place] Indication: dysnpea BP: 118 / 78 HR: 68 Rhythm: Sinus Technical Quality: Adequate MEASUREMENTS (Male / Female) Normal Values 2D ECHO LVOT Diameter 2.0 cm LV Ejection Fraction MOD 2C 70.4 % LV Ejection Fraction 2C AL 70.1 % LA Diameter 4.2 cm RA Systolic Volume 4C AL 28.9 ml RA Systolic Volume 4C MOD 27.2 ml LA Sys Volume AL 50.7 cm cubed LA Sys Volume Index AL 27.2 cm cubed/m squared Aorta at Sinotubular Diameter 1.9 cm IVC Diameter 1.3 cm M-MODE LA Ao Ratio MM 1.4 AV Cusp Separation MM 1.7 cm DOPPLER AV Peak Velocity 240.8 cm/s LVOT Peak Velocity 121.0 cm/s AV Area Cont Eq vti 2.1 cm squared AV Area Cont Eq pk 1.6 cm squared MV Peak Velocity 313.7 cm/s MV Area PHT 2.8 cm squared Mitral E to A Ratio 0.9 TR Peak Velocity 239.0 cm/s TR Peak Gradient 22.8 mmHg TR Mean Velocity 190.0 cm/s TR Mean Gradient 15.7 mmHg TR Velocity Time Integral 61.3 cm TV Peak E Velocity 63.0 cm/s Right Atrial Pressure 3.0 mmHg Pulmonary Artery Systolic Pressu 25.8 mmHg PV Peak Velocity 123.0 cm/s RV Ejection Time 0.3 s FINDINGS Left Ventricle Normal left ventricular size, systolic function and wall thickness, with no regional wall motion abnormalities. Grade I/IV diastolic dysfunction (abnormal relaxation filling pattern), normal to mildly elevated filling pressures. Left ventricular ejection fraction is estimated at 65 %. Right Ventricle Normal right ventricular size and systolic function. Right Atrium The right atrium is normal in size. Left Atrium Mildly increased left atrial size. Mitral Valve Structurally normal mitral valve. Trace mitral valve regurgitation. Aortic Valve Structurally normal trileaflet aortic valve. Mild aortic valve regurgitation. No aortic valve stenosis. Tricuspid Valve Structurally normal tricuspid valve. Trace tricuspid valve regurgitation. Pulmonic Valve Pulmonic valve not well visualized. Trace pulmonary valve regurgitation. Pericardium Normal pericardium without effusion. Aorta Normal ascending aorta dimension. IVC The inferior vena cava appears normal. CONCLUSIONS Normal left ventricular size, systolic function and wall thickness, with no regional wall motion abnormalities. Grade I/IV diastolic dysfunction (abnormal relaxation filling pattern), normal to mildly elevated filling pressures. Left ventricular ejection fraction is estimated at 65 %. Mildly increased left atrial size. Structurally normal mitral valve. Trace mitral valve regurgitation. Structurally normal trileaflet aortic valve. Mild aortic valve regurgitation. No aortic valve stenosis. Previous echo March 30, 2016. New findings are mitral and aortic regurgitation. Otherwise no change. Dr. Brayan Samson MD (Electronically Signed) Final Date: 06 October 2023 16:00 S
== END 2023-10-06 07:44 | disposition home or self-care (01) ==
LOC: RAD 07:43
PROVIDERS: PCP Nurse Practitioner Family; Visit Provider Nurse Practitioner Family
DX: I50.30 Unspecified diastolic (congestive) heart failure (principal); R06.09 Other forms of dyspnea
CPT/HCPCS: 81003; 87071; 87086; 87400; 87426; 87880; 93306

== ENCOUNTER → 2023-10-22 09:06 | Outpatient (BNVA) | payer BC, MEDICAID, SELFPAY | PROVIDERS: PCP Nurse Practitioner Family; Visit Provider Orthopaedic Surgery | DX: M54.50 Low back pain, unspecified (principal); G89.29 Other chronic pain; M50.021 Cervical disc disorder at C4-C5 level with myelopathy; M50.022 Cervical disc disorder at C5-C6 level with myelopathy | CPT/HCPCS: 72110 ==

== ENCOUNTER 2023-10-30 07:30 | Outpatient (CLI) | payer BC, MEDICAID, SELFPAY | END 2023-10-30 07:31 | disposition home or self-care (01) | LOC: RADOUTREAD 07:31 → LAB 07:44 | PROVIDERS: PCP Nurse Practitioner Family; Visit Provider Surgery | DX: R10.9 Unspecified abdominal pain (principal); K59.04 Chronic idiopathic constipation | CPT/HCPCS: 87338 ==

== ENCOUNTER 2023-11-02 12:04 | Outpatient (CLI) | payer BC, MEDICAID, SELFPAY ==
--- NOTE | 2023-11-02 13:00 | MR_ITS ---
WS: [id number] MRI LUMBAR SPINE WITH AND WITHOUT CONTRAST HISTORY: Back Pain COMPARISON: 10/22/2023 TECHNIQUE: Sagittal and axial multisequence imaging is submitted. MultiHance 19 mL IV. This study is compromised by motion artifact. Patient was unable to remain still for this examination due to pain. Degenerative disc disease and bulging discs in the cervical spine. Small central disc protrusion at T 5-6 contacts the thoracic cord. Smaller central disc protrusion at T7-8. Posterior lumbar alignment is normal. Disc spaces are preserved. Marrow edema would be difficult to e xclude with this amount of motion but there is no large area of edema within the vertebral bodies. Th ere does appear to be synovitis and facet joint arthritis at L4-5 and L5-S1. Conus terminates normally at L1-2 disc level. L1-L2: Bilateral facet and ligamentum flavum hypertrophy. Mild bilateral foraminal narrowing. L2-L3: Mild disc bulging with ligamentum flavum and facet arthritis. Very mild foraminal and subartic ular recess narrowing. L3-L4: Mild disc bulging with facet and ligamentum flavum hypertrophy. There is mild disc contact on the traversing L4 nerve roots. Mild bilateral foraminal stenosis. L4-L5: Moderate annular disc bulging with marked ligamentum flavum and facet arthritis. There is disp lacement and contact upon the traversing L5 nerve roots bilaterally. Nerve roots are slightly clumped within the thecal sac. Moderate central and bilateral subarticular recess stenosis with mild foramin al stenosis. L5-S1: Mild disc bulging with facet arthritis. Mild foraminal narrowing. No discitis or osteomyelitis identified. No masses. MR/MR lumbar spine wo/w con [id number] IMPRESSION: 1. Quality of this examination is compromised by motion artifact. 2. L4-5: Moderate central and bilateral subarticular recess and mild foraminal stenosis. Bilateral encroachment upon the traversing L5 nerve roots. 3. Mild foraminal narrowing throughout the lumbar spine. 4. Facet joint synovitis at L4-5 and L5-S1. 5. No discitis or osteomyelitis.
--- NOTE | 2023-11-02 13:45 | MR_ITS ---
WS: [id number] MRI CERVICAL SPINE with and without contrast HISTORY: Neck Pain COMPARISON: 07/16/2018 Technique: Multiplanar, multisequence noncontrast imaging of the cervical spine. Postcontrast imaging 19 mL MultiHance. Very slight retrolisthesis of C5. Disc spaces are narrowed. The STIR sequence is significantly limite d by motion. Cannot exclude marrow edema. Signal within the cervical cord is normal. Visualized posterior fossa is unremarkable. Craniocervical junction, C1 and C2 relationship, odontoid process and soft tissues are normal. C2-C3: Normal. C3-C4: No stenosis. C4-C5: Small central disc protrusion with osteophytic ridging moderate central with severe bilateral foraminal stenosis. Mild progression since the prior study. C5-C6: Marked osteophytic ridging with annular disc bulging and facet arthritis. Central disc protrus ion resulting in effacement of CSF. Moderate to severe central with severe bilateral foraminal stenos is due to disc osteophyte complexes with progression. C6-C7: Osteophytic ridging with annular disc bulging and central disc protrusion. Effacement of CSF. Moderate to severe central with severe bilateral foraminal stenosis. Mild progression since the prior study. C7-T1: Normal. Seen only on the sagittal sequence is a central disc protrusion at T5-6 contacting the ventral thorac ic cord. Postcontrast imaging is significantly compromised by motion. No masses are identified. No discitis or osteomyelitis. MR/MR cervical spine wo/w [id number] IMPRESSION: 1. Study is compromised by motion. 2. C4-5: Moderate central with severe bilateral foraminal stenosis due to disc osteophyte disease. 3. C5-6 and C6-7: Moderate to severe central with severe bilateral foraminal s tenosis. Mild progression of stenosis and disc osteophyte complexes since the p rior study. 4. Shallow central disc protrusion at T5-6. 5. No enhancing masses or discitis.
[2023-11-02] MEDS: gadobenate dimeglumine 20 mL vial 19 ML IV (14:17)
== END 2023-11-02 12:05 | disposition home or self-care (01) ==
LOC: RAD 12:04
PROVIDERS: PCP Nurse Practitioner Family; Visit Provider Orthopaedic Surgery
DX: M99.61 Osseous and subluxation stenosis of intervertebral foramina of cervical region (principal); M25.78 Osteophyte, vertebrae; M50.20 Other cervical disc displacement, unspecified cervical region; M50.223 Other cervical disc displacement at C6-C7 level; M51.24 Other intervertebral disc displacement, thoracic region
CPT/HCPCS: 72156; 72158; A9577

== ENCOUNTER → 2024-02-02 12:51 | Outpatient (BNVA) | payer BC, SELFPAY | PROVIDERS: PCP Nurse Practitioner Family; Visit Provider Surgery | DX: K29.70 Gastritis, unspecified, without bleeding (principal); B96.81 Helicobacter pylori [H. pylori] as the cause of diseases classified elsewhere | CPT/HCPCS: 87338 ==

== ENCOUNTER 2024-02-08 20:00 | Outpatient (CLI) | payer BC, MEDICAID, SELFPAY | END 2024-02-08 20:01 | disposition home or self-care (01) | LOC: SLEEP 22:16 | PROVIDERS: PCP Nurse Practitioner Family; Visit Provider Nurse Practitioner Family | DX: G47.33 Obstructive sleep apnea (adult) (pediatric) (principal); Z99.89 Dependence on other enabling machines and devices | CPT/HCPCS: 95811 ==

== ENCOUNTER → 2024-02-26 11:15 | Outpatient (BNVA) | payer BC, SELFPAY | PROVIDERS: PCP Nurse Practitioner Family; Visit Provider Nurse Practitioner Family | DX: E55.9 Vitamin D deficiency, unspecified (principal); E11.65 Type 2 diabetes mellitus with hyperglycemia; E78.2 Mixed hyperlipidemia; Z79.4 Long term (current) use of insulin | CPT/HCPCS: 80053; 80061; 82306; 82607; 83036; 84443; 85025 ==

== ENCOUNTER → 2024-03-10 11:57 | Outpatient (BNVA) | payer BC, SELFPAY | PROVIDERS: PCP Nurse Practitioner Family; Visit Provider Nurse Practitioner Family | DX: E83.52 Hypercalcemia (principal) | CPT/HCPCS: 80053; 82310; 83970 ==

== ENCOUNTER → 2024-03-15 17:19 | Outpatient (BNVA) | payer OTHER, BC, SELFPAY | PROVIDERS: PCP Nurse Practitioner Family; Visit Provider Orthopaedic Surgery | DX: M54.2 Cervicalgia (principal); E11.65 Type 2 diabetes mellitus with hyperglycemia; Z79.4 Long term (current) use of insulin | CPT/HCPCS: 36415; 80053; 83036; 85025 ==

== ENCOUNTER → 2024-03-17 12:55 | Outpatient (BNVA) | payer BC, MEDICAID, SELFPAY | PROVIDERS: PCP Nurse Practitioner Family; Visit Provider Nurse Practitioner Family | DX: D64.9 Anemia, unspecified (principal) | CPT/HCPCS: 80053; 82607; 82728; 82746; 83550; 85025 ==

== ENCOUNTER → 2024-04-01 09:48 | Outpatient (BNVA) | payer BC, MEDICAID, SELFPAY | PROVIDERS: PCP Nurse Practitioner Family; Visit Provider Nurse Practitioner Family | DX: D50.9 Iron deficiency anemia, unspecified (principal) | CPT/HCPCS: 85025 ==

== ENCOUNTER → 2024-04-04 11:58 | Outpatient (BNVA) | payer BC, MEDICAID, SELFPAY | PROVIDERS: PCP Nurse Practitioner Family; Visit Provider Nurse Practitioner Family | DX: Z12.4 Encounter for screening for malignant neoplasm of cervix (principal) | CPT/HCPCS: 87624 ==

== ENCOUNTER → 2024-04-08 10:04 | Outpatient (BNVA) | payer BC, MEDICAID, SELFPAY | PROVIDERS: PCP Nurse Practitioner Family; Visit Provider Orthopaedic Surgery | DX: E11.9 Type 2 diabetes mellitus without complications (principal); M54.2 Cervicalgia | CPT/HCPCS: 81000; 83036 ==

== ENCOUNTER → 2024-04-13 09:50 | Outpatient (BNVA) | payer BC, SELFPAY | PROVIDERS: PCP Nurse Practitioner Family; Visit Provider Family Medicine | DX: Z01.818 Encounter for other preprocedural examination (principal) | CPT/HCPCS: 80053; 83036; 93005 ==

== ENCOUNTER 2024-04-18 18:13 | Inpatient (IN) | payer BC, MEDICAID, SELFPAY ==
[2024-04-18] VITALS (20 sets, daily range): BP systolic 102–193; BP diastolic 53–110; PULSE 77–117; RESP 10–18; TEMP 36.3–36.8; O2SAT 91–99; BMI 32.8
[2024-04-18 11:25] LABS: Basophils # 0.1 10^3/uL (0.0-0.1); Basophils % 0.8 %; Eosinophils # 0.1 10^3/uL (0.0-0.8); Eosinophils % 1.3 %; Hematocrit 35.5 % (36-47); Lymphocytes # 1.5 10^3/uL (0.8-4.8); Lymphocytes % 19.7 %; Mean Corpuscular HGB Conc 28.2 g/dL (30-55); Mean Corpuscular Volume 81.6 fl (85-98); Mean Platelet Volume 8.4 fL (7.4-10.4); Monocytes # 0.4 10^3/uL (0.2-0.9); Monocytes % 5.6 %; Neutrophils # 5.66 10^3/uL (1.8-7.7); Neutrophils % 72.2 %; Nucleated Red Blood Cells % 0 %; Platelet Count 293 10^3/cmm (157-399); Red Blood Count 4.35 10^6/uL (3.85-5.65); Red Cell Distribution Width 23.9 % (12.1-15.1); White Blood Count 7.83 10^3/uL (3.29-11.43)
[2024-04-18 11:26] LABS: Bilirubin Urine Negative (Negative); Blood Urine Negative (Negative); Glucose Urine UA 1+ (Normal); Ketones Urine Negative (Negative); Leukocyte Esterase Urine Negative (Negative); Nitrate Urine Negative (Negative); Protein Urine Negative (Negative); Specific Gravity, Urine 1.016 (1.005-1.030); Urine Appearance Cloudy (CLEAR); Urine Color Yellow (Yellow)
[2024-04-18 11:29] LABS: Add Urine Microscopic? YES; Bacteria Urine 1+ /hpf; Hyaline Casts Urine 0-4 /lpf; RBC Urine 0-2 /hpf (0-2); WBC Urine 0-5 /hpf (0-5)
[2024-04-18 11:39] LABS: Alanine Aminotransferase 13 U/L (0-33); Albumin Level 4.1 g/dL (3.5-5.2); Alkaline Phosphatase 78 U/L (35-105); Anion Gap 13.3 (5-19); Aspartate Amino Transferase 20 U/L (0-32); Blood Urea Nitrogen 16 mg/dL (6-20); Calcium 10.4 mg/dL (8.5-10.5); Carbon Dioxide 25 mmol/L (22-29); Chloride 102 mmol/L (98-107); Globulin 3.1 g/dL (1.3-4.6); Glomerular Filtration Rate 86.6 mL/min (90-130); Glucose 142 mg/dL (65-115); Osmolality Calculated 286 mOsm/kg (285-295); Potassium 4.3 mmol/L (3.5-5.1); Sodium 136 mmol/L (136-145); Total Bilirubin 0.3 mg/dL (0.15-1.2); Total Protein 7.2 g/dL (6.6-8.7)
[2024-04-18 11:43] LABS: Estmated Average Glucose 174; Hemoglobin A1C 7.7 % (4.0-6.0)
--- NOTE | 2024-04-18 11:57 | SUR.PREOP ---
1151 CHG wipes given to patient and redness noted to anterior neck, Dr Devi in room with pt
[2024-04-18 12:07] LABS: Glucose Point of Care 142 mg/dL (70-110)
--- NOTE | 2024-04-18 12:14 | W.PM.OPSUD ---
Surgery/Procedure H&P Update DATE OF PROCEDURE: April 18, 2024 DATE H&P PERFORMED: 04/13/24 H&P UPDATE INFORMATION: I have reviewed H&P completed within last 30 days, I have examined patient prior to procedure and No changes to prior documentation PREOP DIAGNOSIS: Cervical spondylosis with myelopathy PLANNED PROCEDURE: Operation Date: 04/18/24 14:05 Proposed Procedures p Anterior Cervical Discectomy & Fusion ACDF(Not Applicable) - Roe Devi DO
[2024-04-18] MEDS: sodium chloride 0.9% 1,000 ML 30 ML IV (12:15)
--- NOTE | 2024-04-18 12:55 | P.ANESASSM_ITS ---
Pre-Anesthetic Assessment Height/Weight: Height 5 ft 1 in Weight 174 lb Temp Pulse Resp BP Pulse Ox O2 Del Method 98.2 F 102 H 17 193/110 99 Room Air 04/18/24 11:59 04/18/24 11:59 04/18/24 11:59 04/18/24 11:59 04/18/24 11:59 04/18/24 11:59 Preop Diagnosis: Cervical spondylosis with myelopathy Operation Date: 04/18/24 14:05 Proposed Procedures p Anterior Cervical Discectomy & Fusion ACDF(Not Applicable) - Roe Devi, DO Was Beta Kala taken within 24 hours: Yes Was Clonidine taken within 24 hours: N/A Last intake: Intake Last Liquid Date 04/17/24 Last Liquid Time 00:00 Last Solid Date 04/17/24 Last Solid Time 00:00 Social No alcohol and No tobacco Quit smoking 4 years ago Exam alert, oriented x 3, clear to auscultation bilaterally and regular rate & rhythm Airway Submandibular: within normal limits Cervical ROM: within normal limits Mallampati: Class II Comments: Comments: Edentulous Anesthetic Plan ASA status: 3 Anesthesia: General Other: No prior issues with anesthesia NPO since yesterday History of hypertension on metoprolol Type 2 diabetes on insulin. BS 142 Patient also takes semaglutide p.o., taken on the 10th History of chronic anemia, hemoglobin 10.0 HECTOR, no treatment COPD, controlled with inhalers Patient states she is able to perform ADLs Labs reviewed and acceptable for procedure EKG sinus rhythm Plan for GETA Medications/Allergies Home Medications Medication Instructions Recorded Confirmed Last Taken Type aspirin 81 mg tablet,delayed 81 mg PO QDAY 04/26/19 04/15/24 04/14/24 History release (Aspir-) pen needle, diabetic 31 gauge x #150 ea 03/26/21 04/04/24 Unknown Rx 5/16 (BD Ultra-Fine Short Pen Needle) cholecalciferol (vitamin D3) 50 50 mcg PO DAILY 09/26/22 04/15/24 04/15/24 History mcg (2,000 unit) capsule nitroglycerin 0.4 mg sublingual 0.4 mg sublingual Q5M PRN chest 12/31/22 04/15/24 Unknown Rx tablet pain #20 tabs albuterol sulfate 90 mcg/actuation 2 puff inhalation QID PRN 01/27/23 04/15/24 1 Month Ago Rx aerosol inhaler (Ventolin HFA) shortness of breath or wheezing ~05/10/23 #8.5 grams pantoprazole 40 mg tablet,delayed 40 mg PO BID 30 days #60 tabs 10/15/23 04/18/24 04/17/24 Rx release (Protonix) polyethylene glycol 3350 17 17 g PO DAILY 1 month #510 grams 10/15/23 04/15/24 Unknown Rx gram/dose oral powder (Miralax) linaclotide 145 mcg capsule 72 mcg (0.4966 x 145 mcg) PO DAILY 01/25/24 04/18/24 04/17/24 Rx (Linzess) 30 days #30 caps trazodone 50 mg tablet 100 mg (2 x 50 mg) PO .HS PRN 02/15/24 04/15/24 04/15/24 Rx insomnia #60 tabs apremilast 30 mg tablet (Otezla) 30 mg PO BID #60 tabs 02/26/24 04/18/24 04/17/24 Rx ferrous sulfate 325 mg (65 mg 325 mg PO BID #60 tabs 03/17/24 04/15/24 04/15/24 Rx iron) tablet insulin glargine 100 unit/mL (3 15 unit (0.15 mL) SUBCUT BID #15 mL 03/17/24 04/18/24 04/17/24 Rx mL) subcutaneous pen (Basaglar KwikPen U-100 Insulin) semaglutide 3 mg tablet (Rybelsus) 3 mg PO DAILY 30 days #30 tabs 03/17/24 04/15/24 04/15/24 Rx cyclobenzaprine 10 mg tablet 10 mg PO BID 04/15/24 04/15/24 04/15/24 History dapagliflozin propanediol 10 mg 10 mg PO DAILY 04/15/24 04/15/24 04/15/24 History tablet (Farxiga) duloxetine 30 mg capsule,delayed 30 mg PO BID 04/15/24 04/18/24 04/17/24 History release fenofibrate nanocrystallized 145 145 mg PO DAILY 04/15/24 04/18/24 04/17/24 History mg tablet furosemide 20 mg tablet 20 mg PO BID 04/15/24 04/18/24 04/17/24 History gabapentin 100 mg capsule 100 mg PO BID 04/15/24 04/18/24 04/17/24 History isosorbide mononitrate 60 mg 60 mg PO DAILY 04/15/24 04/18/24 04/17/24 History tablet,extended release 24 hr metformin 500 mg tablet,extended 1,000 mg PO BID 04/15/24 04/15/24 04/15/24 History release 24 hr metoprolol tartrate 50 mg tablet 50 mg PO BID 04/15/24 04/18/24 04/17/24 History Allergies Allergy/AdvReac Type Severity Reaction Status Date / Time oxycodone Allergy ALGY-Difficulty Verified 04/18/24 11:46 Breathing lisinopril AdvReac cough Verified 04/18/24 11:46 Current Medications Generic Name Dose Route Start Last Admin Trade Name Freq PRN Reason Stop Dose Admin Sodium Chloride 1,000 mls @ 30 mls/hr 04/18/24 11:45 04/18/24 12:15 Sodium Chloride 0.9% IV 04/19/24 11:44 30 mls/hr .Q24H FREDERIC Administration PFSH Anesthesia Medical History Helicobacter pylori gastritis Psychiatric care Hyperlipidemia, mixed Psoriasis of scalp Noncompliance with dietary restriction Cervical disc disorder with myelopathy of mid-cervical region Diabetes mellitus with hyperglycemia, with long-term current use of insulin Essential (primary) hypertension DDD (degenerative disc disease), cervical Vitamin D insufficiency Current smoker Obesity Surgical History Hx of hernia repair Laparoscopic repair of incarcerated umbilical hernia with mesh- 06/16/23 Dr Andrea History of tubal ligation History of appendectomy History of tonsillectomy at the age of 7 Family History Other Cancer Diabetes Stroke Social History Smoking and tobacco/nicotine status: former use of tobacco/nicotine Second hand smoke exposure: No Alcohol intake: never Substance/Drug Use: never Adopted: No Caregiver/support person: No Lives independently: Yes Household members: spouse Housing: House Marital status: Number of children: 4 service: No Current occupational status: unemployed Do you think of yourself as: Straight/Heterosexual Current gender identity: Female Data Anesthesia 04/18/24 11:15 04/18/24 11:15 Short CBC 04/18/24 Range/Units 11:15 WBC 7.83 (3.29-11.43) 10^3/uL Hgb 10.00 L (11.27-16.99) g/dL Hct 35.5 L (36-47) % MCV 81.6 L (85-98) fl Plt Count 293 (157-399) 10^3/cmm Neut % (Auto) 72.2 % Neut # (Auto) 5.66 (1.8-7.7) 10^3/uL BMP 04/18/24 11:15 Sodium 136 Potassium 4.3 Chloride 102 Carbon Dioxide 25 BUN 16 Creatinine 0.7 Glucose 142 H Calcium 10.4 Liver Function 04/18/24 Range/Units 11:15 Total Bilirubin 0.3 (0.15-1.2) mg/dL AST 20 (0-32) U/L ALT 13 (0-33) U/L Alkaline Phosphatase 78 (35-105) U/L Albumin 4.1 (3.5-5.2) g/dL Urine 04/18/24 Range/Units 11:17 Urine Color Yellow (Yellow) Urine Appearance Cloudy A (CLEAR) Urine pH 6.0 (5-7) Ur Specific [place] 1.016 (1.005-1.030) Urine Protein Negative (Negative) Urine Glucose (UA) 1+ H (Normal) Urine Ketones Negative (Negative) Urine Nitrate Negative (Negative) Urine Bilirubin Negative (Negative) Ur Leukocyte Esterase Negative (Negative) Urine RBC 0-2 (0-2) /hpf Urine WBC 0-5 (0-5) /hpf Cardiac Studies: 2 Echocardiogram 10/06/23
[2024-04-18] MEDS: ceFAZolin 2,000 mg SDV 2000 MG IVP ×2 (13:09→20:48)
[2024-04-18] MEDS: lidocaine-epi 1% 20 mL INJ INJECTION (14:07)
--- NOTE | 2024-04-18 14:49 | XR_ITS ---
WS: [id number] XR cervical spine 3V* [id number] REASON FOR EXAM: OR PICS FINDINGS: Anterior plate and screw fixation C4-C7 with interbody fusion device at C4-C5 and corpectomy with int erbody device C5-C7. Surgical appliances are intact and in proper position and alignment. XR/XR cervical spine 3V* [id number] IMPRESSION: Anterior cervical fusion without abnormality as above.
--- NOTE | 2024-04-18 15:14 | P.OP_ITS ---
Operative Report Date of procedure: April 18, 2024 Pre-op diagnosis: Cervical stenosis with myelopathy Post-op diagnosis: same Procedure done: 1. Anterior diskectomy C4/5 2. Anterior discectomy C5/6 3. Anterior discectomy C6/7 4. Insertion of cage at C4-5 5. Insertion of corpectomy cage C5-C7 6. Corpectomy greater than 50% of C6 7. Instrumentation with anterior plate from C4-C7 8. Use of allograft Surgeon: Roe Devi DO Estimated blood loss (mL): 25 Procedure: 1. Anterior diskectomy C4/5 2. Anterior discectomy C5/6 3. Anterior discectomy C6/7 4. Insertion of cage at C4-5 5. Insertion of corpectomy cage C5-C7 6. Corpectomy greater than 50% of C6 7. Instrumentation with anterior plate from C4-C7 8. Use of allograft Preoperatively it was noted that the C4-5 level was severely stenotic as well and I did discuss with this patient in the clinic however my note did not document this. Discussed with the patient that within the C4-5 level as well and this was done during the surgery. The patient was taken to the operating room, where he underwent general e ndotracheal anesthesia without complications. He was then positioned supine on the operating table, and all areas of impingement were well padded. The arms were carefully padded and tucked at his sides. A roll was placed between the shoulder blades.. An x-ray was done to determine the appropriate level for the skin incision. The entire neck was then sterilely prepped and draped in the usual fashion. Neuromonitoring was attached prior to prepping. A transverse skin incision was made and carried down to the platysma muscle. This was then split in line with its fibers. Blunt dissection was carried down medial to the carotid sheath and lateral to the trachea and esophagus until the anterior cervical spine was visualized. A needle was placed into a disc and an x-ray was done to determine its location. The longus colli muscles were then elevated bilaterally with the electrocautery unit. Self-retaining retractors were placed deep to the longus colli muscle. Attention was brought to the C4/5 level that was confirmed on x-ray. A caspar pin was placed into the C4 vertebrae and the C5 vertebrae. The disk space was then distracted. The microscope was then brought in. A radical anterior dis cectomies were performed at C4/5. This included complete removal of the anterior annulus, nucleus, and posterior annulus. The posterior longitudinal ligament was removed as were the posterior osteophytes. Foraminotomies were then accomplished bilaterally. This was done using a high speed sriram, kerrison rongeurs and curretes Once all of this was accomplished, the curved currette was used to check for any residual compression. The central canal was wide open as were the foramen. A high-speed bur was used to remove the cartilaginous endplates above and below the interspace. Bleeding cancellous bone was exposed. The disc space were measured and appropriate size cage were placed sterilely onto the field. Allograft graft was packed into the cages. The cage was then placed and there was good juxtaposition against the bleeding decorticated surfaces and good distraction of each interspace. Next attention was brought to the C5-6 level. A discectomy was performed at C5- 6 was done using the high-speed bur curved curettes and micropituitary. Disc material was removed this was done about the C5-6 and C6-7 level. Once the disc material was removed and attention was brought to performing the corpectomy. At the C6 level. A high-speed bur was used to take down the C6 vertebral body this was done from the disc bases of C5-6 to C6-7 and taking down as lateral as possible or down to the ligamentum flavum. Rongeur was used to remove the bone graft. A curved curette was used to remove the remaining bone along with Kerrison rongeur's. And then the ligamentum flavum was removed from C7-C5. The C5-6 and C6-7 foramen were open bilaterally and removed any more 3 disc material from the C5-6 and C6-7 disc bases. The corpectomy cage was then trialed it was measured to be 22 mm. A 22 mm cage was packed with allograft bone graft and placed from see 5 to C7 endplates. The appropriate size anterior cervical locking plate was chosen and bent into gentle lordosis. Two screws were then placed into each of the vertebral bodies at C4-C5 and C7 C6 was skipped because this is where the corpectomy cage was.. There was excellent purchase. A final x-ray was done confirming good position of the hardware and Cages. The locking screws were then applied, also with excellent purchase. Following a final copious irrigation, there was good hemostasis and no dural leaks. The carotid pulse was strong. The wounds were then closed in layers using 2-0 Vicryl suture for the platysma muscle, 2-0 Vicryl suture for the subcutaneous tissue, and 4-0 monocryl suture in a subcuticular skin closure. Gl ue was placed followed by application of a sterile dressing. The drain was hooked to bulb suction. A soft collar was applied. The patient was then carefully returned to the supine position on his hospital bed where he was reversed and extubated and taken to the recovery room having tolerated the procedure well.
[2024-04-18] MEDS: ketorolac 30 mg/mL INJ IVP (18:43)
[2024-04-18 20:30] LABS: Glucose Point of Care 194 mg/dL (70-110)
[2024-04-18] MEDS: HYDROcodone-acetaminophen 5-325 mg Tablet PO (20:45)
[2024-04-18] MEDS: metformin XR 500 MG Tablet 1000 MG PO (20:46)
[2024-04-18] MEDS: FUROsemide 20 mg Tablet PO (20:46)
[2024-04-18] MEDS: duloxetine 30 mg Capsule PO (20:46)
[2024-04-18] MEDS: pantoprazole DR 40 mg Tablet PO (20:46)
[2024-04-18] MEDS: cyclobenzaprine 10 mg Tablet PO (20:46)
[2024-04-18] MEDS: gabapentin 100 mg Capsule PO (20:46)
[2024-04-18] MEDS: ferrous sulfate EC 325 mg Tablet PO (20:46)
[2024-04-18] MEDS: insulin glargine 100 units/1 mL 15 UNIT SUBCUT (20:47)
[2024-04-18] MEDS: docusate sodium 100 mg Capsule PO (20:47)
[2024-04-18] MEDS: metoprolol tartrate 50 mg Tablet PO (20:47)
[2024-04-18] MEDS: lactated ringers 1,000 ML 90 ML IV (21:04)
[2024-04-18] MEDS: morphine 4 mg/mL SDV 1 mL 2 MG IVP (22:33)
[2024-04-19 03:36] VITALS: BP 103/58; PULSE 76; RESP 18; TEMP 36.6; O2SAT 96
[2024-04-19] MEDS: HYDROcodone-acetaminophen 5-325 mg Tablet PO (06:19)
[2024-04-19] MEDS: ceFAZolin 2,000 mg SDV 2000 MG IVP ×2 (06:20→11:53)
[2024-04-19 06:35] LABS: Glucose Point of Care 117 mg/dL (70-110)
[2024-04-19 07:32] VITALS: BP 105/72; PULSE 74; RESP 18; TEMP 36.4; O2SAT 93
--- NOTE | 2024-04-19 08:16 | PM.DCS ---
Discharge Providers Date of Admission: 04/18/24 18:13 Date of Discharge: April 19, 2024 Attending Provider at Admission: Roe Devi DO Attending Provider at Discharge: Roe Devi DO Primary Care Provider: KRYS Croft Reason for Visit Reason for Visit: M48.02 Physical Exam Narrative: Patient doing well has been up with around to the bathroom. Urinary Catheter Management: Lindsey: Cath Placed During This Visit: yes, but has since been removed by the nurse Urinary Catheter Date of Insertion: 04/18/24 Urinary Catheter Time of Insertion: 13:20 Date Urinary Catheter Removed: 04/18/24 Time Urinary Catheter Discontinued: 15:09 Discharge Data Studies Completed and Pending Completed Studies During Hospitalization Category Date Time Status XR cervical spine 3V* [id number] Routine Exams 04/18/24 14:49 Completed Pending at discharge Category Date Time Status C-arm Fluoroscopy [id number] Routine Exams 04/18/24 11:37 Taken Radiology Impressions Cervical Spine X-Ray 04/18/24 14:49 IMPRESSION: Anterior cervical fusion without abnormality as above. Laboratory Results WBC 7.83 10^3/uL (3.29-11.43) 04/18/24 11:15 RBC 4.35 10^6/uL (3.85-5.65) 04/18/24 11:15 Hgb 10.00 g/dL (11.27-16.99) L 04/18/24 11:15 Hct 35.5 % (36-47) L 04/18/24 11:15 MCV 81.6 fl (85-98) L 04/18/24 11:15 MCH 23.0 pg (27-33) L 04/18/24 11:15 MCHC 28.2 g/dL (30-55) L 04/18/24 11:15 RDW 23.9 % (12.1-15.1) H 04/18/24 11:15 Plt Count 293 10^3/cmm (157-399) 04/18/24 11:15 MPV 8.4 fL (7.4-10.4) 04/18/24 11:15 Neut % (Auto) 72.2 % 04/18/24 11:15 Lymph % (Auto) 19.7 % 04/18/24 11:15 [place] % (Auto) 5.6 % 04/18/24 11:15 Eos % (Auto) 1.3 % 04/18/24 11:15 Baso % (Auto) 0.8 % 04/18/24 11:15 Neut # (Auto) 5.66 10^3/uL (1.8-7.7) 04/18/24 11:15 Lymph # (Auto) 1.5 10^3/uL (0.8-4.8) 04/18/24 11:15 [place] # (Auto) 0.4 10^3/uL (0.2-0.9) 04/18/24 11:15 Eos # (Auto) 0.1 10^3/uL (0.0-0.8) 04/18/24 11:15 Baso # (Auto) 0.1 10^3/uL (0.0-0.1) 04/18/24 11:15 Nucleated RBC % (auto) 0 % 04/18/24 11:15 Nucleated RBCs # 0.0 /100WBC 04/18/24 11:15 Sodium 136 mmol/L (136-145) 04/18/24 11:15 Potassium 4.3 mmol/L (3.5-5.1) 04/18/24 11:15 Chloride 102 mmol/L (98-107) 04/18/24 11:15 Carbon Dioxide 25 mmol/L (22-29) 04/18/24 11:15 Anion Gap 13.3 (5-19) 04/18/24 11:15 BUN 16 mg/dL (6-20) 04/18/24 11:15 Creatinine 0.7 mg/dL (0.5-0.9) 04/18/24 11:15 GFR Calculation 86.6 mL/min (90-130) L 04/18/24 11:15 Glucose 142 mg/dL (65-115) H 04/18/24 11:15 POC Glucose 117 mg/dL (70-110) H 04/19/24 06:27 Estimat Average Glucose 174 04/18/24 11:15 Hemoglobin A1c 7.7 % (4.0-6.0) H 04/18/24 11:15 Calculated Osmolality 286 mOsm/kg (285-295) 04/18/24 11:15 Calcium 10.4 mg/dL (8.5-10.5) 04/18/24 11:15 Total Bilirubin 0.3 mg/dL (0.15-1.2) 04/18/24 11:15 AST 20 U/L (0-32) 04/18/24 11:15 ALT 13 U/L (0-33) 04/18/24 11:15 Alkaline Phosphatase 78 U/L (35-105) 04/18/24 11:15 Total Protein 7.2 g/dL (6.6-8.7) 04/18/24 11:15 Albumin 4.1 g/dL (3.5-5.2) 04/18/24 11:15 Globulin 3.1 g/dL (1.3-4.6) 04/18/24 11:15 Urine Color Yellow (Yellow) 04/18/24 11:17 Urine Appearance Cloudy (CLEAR) A 04/18/24 11:17 Urine pH 6.0 (5-7) 04/18/24 11:17 Ur Specific [place] 1.016 (1.005-1.030) 04/18/24 11:17 Urine Protein Negative (Negative) 04/18/24 11:17 Urine Glucose (UA) 1+ (Normal) H 04/18/24 11:17 Urine Ketones Negative (Negative) 04/18/24 11:17 Urine Blood Negative (Negative) 04/18/24 11:17 Urine Nitrate Negative (Negative) 04/18/24 11:17 Urine Bilirubin Negative (Negative) 04/18/24 11:17 Urine Urobilinogen 1.0 mg/dL (Negative) 04/18/24 11:17 Ur Leukocyte Esterase Negative (Negative) 04/18/24 11:17 Urine RBC 0-2 /hpf (0-2) 04/18/24 11:17 Urine WBC 0-5 /hpf (0-5) 04/18/24 11:17 Ur Squamous Epith Cells 11-20 /hpf (0-5) 04/18/24 11:17 Amorphous Sediment Not Reportable 04/18/24 11:17 Urine Bacteria 1+ /hpf (NONE) H 04/18/24 11:17 Hyaline Casts 0-4 /lpf H 04/18/24 11:17 Blood Type A Positive 04/18/24 12:08 Rho(D) Type Rh positive 04/18/24 12:08 Antibody Screen Negative 04/18/24 12:08 Vitals Last Vital Signs Temp 97.5 F L 04/19/24 07:32 Pulse 74 04/19/24 07:32 Resp 18 04/19/24 07:32 BP 105/72 04/19/24 07:32 Pulse Ox 93 04/19/24 07:32 O2 Del Method Nasal Cannula 04/19/24 07:32 O2 Flow Rate 2 04/19/24 07:32 Discharge Plan Discharge Prescriptions: New hydrocodone-acetaminophen 5-325 mg tablet 1 - 2 tab PO .Q4-6H Qty: 40 0RF Continued (DME) pen needle, diabetic [BD Ultra-Fine Short Pen Needle] 31 gauge x 5/16 needle See Rx Instructions .ROUTE .MEDSUPPLY Qty: 150 5RF Rx Instructions: 5 TIMES DAY nitroglycerin 0.4 mg tablet, sublingual 0.4 mg SUBLINGUAL Q5M PRN (Reason: chest pain) Qty: 20 1RF Rx Instructions: 1 tab every 5 minutes up to 3 times albuterol sulfate [Ventolin HFA] 90 mcg/actuation HFA aerosol inhaler 2 puff inhalation QID PRN (Reason: shortness of breath or wheezing) Qty: 8.5 2RF trazodone 50 mg tablet 100 mg PO .HS PRN (Reason: insomnia) Qty: 60 2RF Linzess 145 mcg capsule 72 mcg PO DAILY 30 Days Qty: 30 12RF Otezla 30 mg tablet 30 mg PO BID Qty: 60 5RF ferrous sulfate 325 mg (65 mg iron) tablet 325 mg PO BID Qty: 60 2RF insulin glargine [Basaglar KwikPen U-100 Insulin] 100 unit/mL (3 mL) insulin pen 15 unit SUBCUT BID Qty: 15 2RF Rybelsus 3 mg tablet 3 mg PO DAILY 30 Days Qty: 30 0RF cholecalciferol (vitamin D3) 50 mcg (2,000 unit) capsule 50 mcg PO DAILY pantoprazole [Protonix] 40 mg tablet,delayed release (DR/EC) 40 mg PO BID 30 Days Qty: 60 12RF polyethylene glycol 3350 [Miralax] 17 gram/dose powder 17 g PO DAILY 30 Days Qty: 510 0RF cyclobenzaprine 10 mg tablet 10 mg PO BID Rx Instructions: TAKE ONE TABLET BY MOUTH TWO TIMES DAILY NEEDED FOR MUSCLE SPASMS isosorbide mononitrate 60 mg tablet extended release 24 hr 60 mg PO DAILY Rx Instructions: TAKE ONE TABLET BY MOUTH EVERY MORNING metoprolol tartrate 50 mg tablet 50 mg PO BID Rx Instructions: TAKE ONE TABLET BY MOUTH TWICE DAILY furosemide 20 mg tablet 20 mg PO BID Rx Instructions: TAKE ONE TABLET BY MOUTH TWICE DAILY gabapentin 100 mg capsule 100 mg PO BID Rx Instructions: TAKE ONE CAPSULE BY MOUTH TWICE DAILY FOR 30 DAYS metformin 500 mg tablet extended release 24 hr 1,000 mg PO BID Rx Instructions: TAKE TWO TABLETS BY MOUTH TWICE DAILY duloxetine 30 mg capsule,delayed release(DR/EC) 30 mg PO BID Rx Instructions: TAKE ONE CAPSULE BY MOUTH TWICE DAILY fenofibrate nanocrystallized 145 mg tablet 145 mg PO DAILY Rx Instructions: TAKE ONE TABLET BY MOUTH DAILY dapagliflozin propanediol [Farxiga] 10 mg tablet 10 mg PO DAILY Rx Instructions: TAKE ONE TABLET BY MOUTH EVERY MORNING Held aspirin [Aspir-81] 81 mg tablet,delayed release (DR/EC) 81 mg PO QDAY Hold Instructions: Resume on 04/20/24. Discharge Orders: Discharge Order (Routine); Ordered 04/19/24 Ordered By: Roe Devi Discharge Diet: Advance as tolerated Discharge Activity: Limit activity as instructed Patient Instructions: Acute Wound Care (DC), Opioid Safety, Post Anesthesia Care Activity Restrictions/Additional Instructions: Thank you for choosing [facility] for your care! The following is a list of instructions, from your provider, to follow upon your discharge to ensure you have the optimal recovery from your recent injury or surgery. Anterior Cervical Discectomy and Fusion: What to Expect at Home Your Recovery Follow-up care is a castellano part of your treatment and safety. Be sure to make and go to all appointments, and call your doctor if you are having problems. If you do not already have a follow-up appointment made, call office in the next 1-3 days to make follow up appointment for 2 weeks at [phone]. It is also a good idea to know your test results and keep a list of the medicines you take. You can expect your neck to feel stiff or sore after surgery. This should improve in the weeks after surgery. But it may take 4 to 6 months for you to get better completely. You may have trouble sitting or standing in one position for very long and may need pain medicine in the weeks after your surgery. It may take 4 to 6 weeks to get back to your usual activities, but it may depend on what kind of surgery you had. Your throat will feel sore and it may be difficult to swallow for the first 3 days after your surgery. As long as you can get liquids down without difficulty, this should slowly improve, otherwise call our office or seek medical attention if it becomes increasingly difficult to get anything down including liquids. Avoid hot liquids for first 3-5 days. Soothing foods/liquids such as jello, pudding, and luke warm soups are recommended until swallowing improves. Staying elevated will also help, it's advised you keep propped up at while sleeping to help reduce the swelling. You may use an ice pack directly on your incision or around it on the front of your neck, using a cloth to protect your skin; and a heating pad to the back of your neck as needed. Do not use over the counter anti-inflammatory medications (Ibuprofen, Motrin, Aleve, Advil, etc) Taking these meds after having a fusion can delay fusion rates, we recommend you avoid them for the first 3 [address] your surgery[address] Devi may advise you to work with a physical therapist to strengthen the muscles around your neck and back - this will be discussed at your follow - up appointments. The pain or numbness you were having in your arms before surgery should get better or go away completely. This care sheet gives you a general idea about how long it will take for you to recover. But each person recovers at a different pace. Follow the steps below to get better as quickly as possible. How can you care for yourself at home? Activity ? Rest when you feel tired. Getting enough sleep will help you recover. ? Try to walk each day. Start by walking a little more than you did the day before. Bit by bit, increase the amount you walk. Walking boosts blood flow and helps prevent pneumonia and constipation. Walking may also decrease your muscle soreness after surgery. ? No lifting anything that is more that 5 pounds. This may include heavy grocery bags and milk containers, a heavy briefcase or backpack, cat litter or dog food bags, a child, or a vacuum general cleaner. ? Avoid strenuous activities, such as bicycle riding, jogging, weightlifting, or aerobic exercise, until your doctor says it is okay. ? Do not drive until your follow-up visit after your surgery, or until your doctor says it isokay. ? Avoid taking long car trips for 2 to 4 weeks after surgery. Your neck may become tired and painful from sitting too long in one position. ? You will probably need to take 4 to 6 weeks off from work. It depends on the type of work you do and how you feel. ? You may have sex as soon as you feel able, but avoid positions that put stress on your neck or cause pain. Diet ? You can eat your normal diet. If your stomach is upset, try bland, low-fat foods like plain rice, broiled chicken, toast, and yogurt ? Drink plenty of fluids. If you have kidney, heart, or liver disease and have to limit fluids, talk with your doctor before you increase the amount of fluids you drink. ? You may notice that your bowel movements are not regular right after your surgery. This is common. Try to avoid constipation and straining with bowel movements. You may want to take a fiber supplement every day. If you have not had a bowel movement after a couple of days, ask your doctor about taking a mild laxative. Medicines ? Take pain medicines exactly as directed. 1. If Dr. Devi gave you a prescription medicine for pain, take lt as prescribed. 2. Do not take two or more pain medicines at the same time unless the doctor told you to. Many pain medicines have acetaminophen, which is Tylenol. Too much acetaminophen {Tylenol) can be harmful. 3. If you think your pain pill is making you sick to your stomach: 4. Take your pills after meals (unless your doctor has told you not to). 5. Ask your Dr. for a different pain pill. Incisioncare ? Remove your dressing 48hours after your surgery. Ok to shower and get the incision wet. Do not overtly wash your incision. When done, pad dry, leave open to air thereafter. Avoid creams and ointments directly on your incision. ? Your sutures in the incision will dissolve and fall out on their own. ? Keep the area clean and dry. You may cover it with a gauze bandage if it weeps or rubs against clothing; if you choose to do this, change the dressing everyday. Other instructions ? Use a heating pad, hot water bottle, or gentle massage on your back to reduce stiffness. Avoid putting heat on your incision When should you call for help? ? Call 911 anytime you think you may need emergency care. For example, call if: ? You pass out (lose consciousness). ? You have sudden chest pain and shortness of breath, or you cough upblood. ? You cannot swallow. ? You have severe pain in your neck or back. ? Call your Dr. or seek immediate medical care if: ? You have pain that does not get better after you take pain pills. ? You have loose stitches, or your incision comes open. ? You have blood or fluid draining from the incision. ? You have signs of infection, such as: 1. Increased pain, swelling, warmth, or redness. 2. Red streaks leading from the site. 3. Pus draining from the site. 4. Swollen lymph nodes in your neck or armpits. 5. A fever. ? You have severe pain in your arms. ? You have new or increased weakness or numbness in your arms. ? Watch closely for any changes in your health, and be sure to contact your doctor if: ? You do not have a bowel movement after taking a laxative. Discharge Attestations Time Spent in Discharge Care*: less than 30 min Quality Metrics Clinical Quality Measures [ No reported AMI, CVA or VTE this stay] Coding Level of Care Code Acute Code for Chg Fwd
[2024-04-19] MEDS: gabapentin 100 mg Capsule PO (09:23)
[2024-04-19] MEDS: fenofibrate 145 mg Tablet PO (09:23)
[2024-04-19] MEDS: docusate sodium 100 mg Capsule PO (09:23)
[2024-04-19] MEDS: ferrous sulfate EC 325 mg Tablet PO (09:23)
[2024-04-19] MEDS: FUROsemide 20 mg Tablet PO (09:24)
[2024-04-19] MEDS: cholecalciferol (vitamin D3) 1,000 unit Tablet 2000 UNIT PO (09:24)
[2024-04-19] MEDS: duloxetine 30 mg Capsule PO (09:24)
[2024-04-19] MEDS: insulin glargine 100 units/1 mL 15 UNIT SUBCUT (09:24)
[2024-04-19] MEDS: metformin XR 500 MG Tablet 1000 MG PO (09:24)
[2024-04-19] MEDS: cyclobenzaprine 10 mg Tablet PO (09:24)
[2024-04-19] MEDS: pantoprazole DR 40 mg Tablet PO (09:26)
--- NOTE | 2024-04-19 09:46 | PC.CHAP ---
Pastoral Care Encounter/Spiritual Assessment Type of Contact [] Declined roving frame tender visit [] Patient/Family/Request visit [] Outpatient visit [] Follow-up visit [] Physician referral [] Code/Alert [] Routine visit [] Staff referral [] Actively dying [x] Patient sleeping [] Family support [] [] Out of room [] Palliative care [] [] Receiving care in room [] Pre-surgical visit [] Trauma [] Long length of stay [] ICU visit [] Other: Relational/Emotional Strength [] Patient feels connected with others/family/visitors/staff [] Distress [] Loneliness/isolation [] Abandonment Spirituality of Patient [] Person of Bouchra [] Attends Temple of their Bouchra [] Believes in Prayer [] Reads Bible or Yarsanism materials [] There are Spiritual issues to be addressed Dental Assisting Instructor Interventions [] Prayer [] Active listening [] Non-anxious presence [] Spiritual/emotional support [] Crisis/trauma care [] Spiritual counseling [] Bereavement support [] Provided bereavement packet [] Provided Bible/devotional materials [] Provided toy/stuffed animal, coloring book to patient or family member [] Provided Communion [] Anointing/[place] [] Salvation [] Completed spiritual assessment [] Other: Impact on Illness or Injury [] Angry [] Fearful [] Anxious [] Often cries [] Exhaustion [] Unable to work [] Unable to attend zoroastrian [] Unable to walk/stand [] Unable to read [] Unable to drive [] Unable to eat/drink [] Unable to sleep [] Unable to be with family [] Patient intubated [] Other: Summary Time spent with patient
[2024-04-19 09:59] VITALS: PULSE 79; RESP 18; O2SAT 95
[2024-04-19 11:03] LABS: Glucose Point of Care 140 mg/dL (70-110)
[2024-04-19 11:06] VITALS: BP 116/70; PULSE 84; RESP 16; TEMP 36.9; O2SAT 95
--- NOTE | 2024-04-19 11:31 | PC.NURSE ---
hemovac removed per order, pt tolerated well.
[2024-04-19 12:09] VITALS: BP 116/70; PULSE 84; O2SAT 93
[2024-04-19 12:13] VITALS: O2SAT 93
== END 2024-04-19 12:13 | disposition home or self-care (01) | DRG 473 ==
LOC: MEDSURG 18:13
PROVIDERS: Admitting Provider Orthopaedic Surgery; PCP Nurse Practitioner Family; Visit Provider Orthopaedic Surgery
PROC: 0RB30ZZ Excision of Cervical Vertebral Disc, Open Approach (ICD-10-PCS; CPT 22551; principal; 2024-04-18 13:45)
DX: M47.12 Other spondylosis with myelopathy, cervical region (principal); M48.02 Spinal stenosis, cervical region; E11.9 Type 2 diabetes mellitus without complications; D64.89 Other specified anemias; G47.33 Obstructive sleep apnea (adult) (pediatric); J44.9 Chronic obstructive pulmonary disease, unspecified; I10 Essential (primary) hypertension; E55.9 Vitamin D deficiency, unspecified; Z79.4 Long term (current) use of insulin; Z79.84 Long term (current) use of oral hypoglycemic drugs; Z79.82 Long term (current) use of aspirin; Z87.891 Personal history of nicotine dependence
CPT/HCPCS: 36415; 36416; 51702; 72040; 76000; 80053; 81001; 82962; 83036; 85025; 86850; 86900; 96372; 97110; 97161; C1713; C1763; C9359; J0330; J0690; J1100; J1171; J1815; J1885; J2270; J2371; J2704; J2710; J3490; J7030; J7120; P9045

== ENCOUNTER 2024-04-22 12:13 | Inpatient (IN) | payer BC, MEDICAID, SELFPAY ==
[2024-04-22] VITALS (11 sets, daily range): BP systolic 110–187; BP diastolic 64–101; PULSE 103–140; RESP 13–26; TEMP 36.8–37.2; O2SAT 91–97; BMI 32.6
--- NOTE | 2024-04-22 16:50 | ED_ITS ---
HPI - Neck Pain/Injury 2 General: Chief Complaint: Neck Pain/Injury Stated Complaint: trouble swallowing Time Seen by Provider: 04/22/24 16:38 History of Present Illness: 58-year-old woman who presents emergency room with difficulty swallowing and neck pain. She had an anterior approach cervical fusion on Thursday. She says at first she was okay but over the last 2 days she has developed difficulty swallowing. She said initially she could not get down any of her pills now even when she drinks liquids she brings it back up. She tried to get a hold of the clinic but no one answered. She is tachycardic on presentation. She appears a bit dehydrated. She is also in pain and has not had any pain medications. No chest pain. No shortness of breath. No abdominal pain. Related Data Home Medications Medication Instructions Recorded Confirmed aspirin 81 mg tablet,delayed 81 mg PO QDAY 04/26/19 04/15/24 release (Aspir-) cholecalciferol (vitamin D3) 50 50 mcg PO DAILY 09/26/22 04/15/24 mcg (2,000 unit) capsule cyclobenzaprine 10 mg tablet 10 mg PO BID 04/15/24 04/15/24 dapagliflozin propanediol 10 mg 10 mg PO DAILY 04/15/24 04/15/24 tablet (Farxiga) duloxetine 30 mg capsule,delayed 30 mg PO BID 04/15/24 04/18/24 release fenofibrate nanocrystallized 145 145 mg PO DAILY 04/15/24 04/18/24 mg tablet furosemide 20 mg tablet 20 mg PO BID 04/15/24 04/18/24 gabapentin 100 mg capsule 100 mg PO BID 04/15/24 04/18/24 isosorbide mononitrate 60 mg 60 mg PO DAILY 04/15/24 04/18/24 tablet,extended release 24 hr metformin 500 mg tablet,extended 1,000 mg PO BID 04/15/24 04/15/24 release 24 hr metoprolol tartrate 50 mg tablet 50 mg PO BID 04/15/24 04/18/24 Previous Rx's Medication Instructions Recorded pen needle, diabetic 31 gauge x #150 ea 03/26/2108/19 (BD Ultra-Fine Short Pen Needle) nitroglycerin 0.4 mg sublingual 0.4 mg sublingual Q5M PRN chest 12/31/22 tablet pain #20 tabs albuterol sulfate 90 mcg/actuation 2 puff inhalation QID PRN 01/27/23 aerosol inhaler (Ventolin HFA) shortness of breath or wheezing #8.5 grams pantoprazole 40 mg tablet,delayed 40 mg PO BID 30 days #60 tabs 10/15/23 release (Protonix) polyethylene glycol 3350 17 17 g PO DAILY 1 month #510 grams 10/15/23 gram/dose oral powder (Miralax) linaclotide 145 mcg capsule 72 mcg (0.4966 x 145 mcg) PO DAILY 01/25/24 (Linzess) 30 days #30 caps trazodone 50 mg tablet 100 mg (2 x 50 mg) PO .HS PRN 02/15/24 insomnia #60 tabs apremilast 30 mg tablet (Otezla) 30 mg PO BID #60 tabs 02/26/24 ferrous sulfate 325 mg (65 mg 325 mg PO BID #60 tabs 03/17/24 iron) tablet insulin glargine 100 unit/mL (3 15 unit (0.15 mL) SUBCUT BID #15 mL 03/17/24 mL) subcutaneous pen (Basaglar KwikPen U-100 Insulin) semaglutide 3 mg tablet (Rybelsus) 3 mg PO DAILY 30 days #30 tabs 03/17/24 hydrocodone 5 mg-acetaminophen 325 1 - 2 tab PO .Q4-6H #40 tabs 04/19/24 mg tablet Allergies Allergy/AdvReac Type Severity Reaction Status Date / Time oxycodone Allergy ALGY-Difficulty Verified 04/18/24 11:46 Breathing lisinopril AdvReac cough Verified 04/18/24 11:46 Review of Systems 2 Narrative: Constitutional symptoms: Negative except as documented in HPI. Skin symptoms: Negative except as documented in HPI. Eye symptoms: Negative except as documented in HPI. ENMT symptoms: Negative except as documented in HPI. Respiratory symptoms: Negative except as documented in HPI. Cardiovascular symptoms: Negative except as documented in HPI. Gastrointestinal symptoms: Negative except as documented in HPI. Genitourinary symptoms: Negative except as documented in HPI. Musculoskeletal symptoms: Negative except as documented in HPI. Neurologic symptoms: Negative except as documented in HPI. Psychiatric symptoms: Negative except as documented in HPI. Endocrine symptoms: Negative except as documented in HPI. PFSH ED 2 PFSH: Medical History Helicobacter pylori gastritis Psychiatric care Hyperlipidemia, mixed Psoriasis of scalp Noncompliance with dietary restriction Cervical disc disorder with myelopathy of mid-cervical region Diabetes mellitus with hyperglycemia, with long-term current use of insulin Essential (primary) hypertension DDD (degenerative disc disease), cervical Vitamin D insufficiency Current smoker Obesity Surgical History Hx of hernia repair Laparoscopic repair of incarcerated umbilical hernia with mesh- 06/16/23 Dr Andrea History of tubal ligation History of appendectomy History of tonsillectomy at the age of 7 Family History Other Cancer Diabetes Stroke Social History Smoking and tobacco/nicotine status: former use of tobacco/nicotine Second hand smoke exposure: No Alcohol intake: never Substance/Drug Use: never Adopted: No Caregiver/support person: No Lives independently: Yes Household members: spouse Housing: House Marital status: Number of children: 4 service: No Current occupational status: unemployed Do you think of yourself as: Straight/Heterosexual Current gender identity: Female Physical Exam 2 Narrative: EXAM NARRATIVE: General: Alert, no acute distress. Skin: Warm, dry. Head: Normocephalic, atraumatic. Neck: Cervical collar is in place. There is a dressing over anterior neck. Eye: Extraocular movements are intact. Ears, nose, mouth and throat: Dry oral mucosa Cardiovascular: Regular, tachycardic, normal peripheral perfusion. Respiratory: Lungs are clear to auscultation, respirations are non-labored, breath sounds are equal, Symmetrical chest wall expansion. Gastrointestinal: Soft, Nontender, Non distended Musculoskeletal: Normal ROM, no deformity. Neurological: Alert and oriented, No focal neurological deficit observed. Psychiatric: Cooperative, appropriate mood & affect. Course 2 Vital Signs: Vital signs: Vital Signs Temperature 98.9 F 04/22/24 12:49 Pulse Rate 103 H 04/22/24 19:00 Respiratory Rate 16 04/22/24 19:00 Blood Pressure 128/78 04/22/24 19:00 Pulse Oximetry 91 04/22/24 19:00 Oxygen Delivery Me thod Nasal Cannula 04/22/24 19:00 Oxygen Flow Rate 2 04/22/24 19:00 MDM - Neck Pain/Injury Medical Decision Making Consultation: I spoke with Dr. Devi who is is not on-call but did except consultation on this patient who had done surgery on earlier this week. He says this is not uncommon with this extensive his surgery for there to be either some swelling or nerve irritation that would result in difficulty swallowing. Often times just popsicles and crushed meds will work but the patient is not tolerating fluids at this time. He agrees that admission is appropriate. He will see the patient tomorrow when he rounds on another of his patients. He does not feel that imaging at this point will be helpful. Lab review: Mild leukocytosis. No renal failure. CRP is elevated. Lab work was reviewed and interpreted by myself the emergency room physician. Consultation: I spoke with the hospitalist on-call who agrees to admission. Assessment and plan: Dehydration Dysphagia Intractable pain Postsurgical complications ?Normal saline bolus, IV Decadron, IV Zofran and IV Dilaudid -I discussed the patient with the hospitalist on-call who is admitting the patient. - Discussed findings and plan with patient. Answered any questions. - All laboratory values were reviewed and interpreted personally by myself, the ER physician - All imaging was reviewed and interpreted personally by myself, the ER physician. - Evaluation and treatment of this problem were appropriate in the emergency setting Lab Data 04/22/24 16:55 04/22/24 16:55 Laboratory Results WBC 11.88 10^3/uL (3.29-11.43) H 04/22/24 16:55 RBC 4.95 10^6/uL (3.85-5.65) 04/22/24 16:55 Hgb 11.20 g/dL (11.27-16.99) L 04/22/24 16:55 Hct 39.5 % (36-47) 04/22/24 16:55 MCV 79.8 fl (85-98) L 04/22/24 16:55 MCH 22.6 pg (27-33) L 04/22/24 16:55 MCHC 28.4 g/dL (30-55) L 04/22/24 16:55 RDW 22.5 % (12.1-15.1) H 04/22/24 16:55 Plt Count 342 10^3/cmm (157-399) 04/22/24 16:55 MPV 9.2 fL (7.4-10.4) 04/22/24 16:55 Neut % (Auto) 78.4 % 04/22/24 16:55 Lymph % (Auto) 14.7 % 04/22/24 16:55 [place] % (Auto) 5.8 % 04/22/24 16:55 Eos % (Auto) 0.3 % 04/22/24 16:55 Baso % (Auto) 0.5 % 04/22/24 16:55 Neut # (Auto) 9.31 10^3/uL (1.8-7.7) H 04/22/24 16:55 Lymph # (Auto) 1.8 10^3/uL (0.8-4.8) 04/22/24 16:55 [place] # (Auto) 0.7 10^3/uL (0.2-0.9) 04/22/24 16:55 Eos # (Auto) 0.0 10^3/uL (0.0-0.8) 04/22/24 16:55 Baso # (Auto) 0.1 10^3/uL (0.0-0.1) 04/22/24 16:55 Nucleated RBC % (auto) 0 % 04/22/24 16:55 Nucleated RBCs # 0.0 /100WBC 04/22/24 16:55 ESR 121 mm/hr (0-15) H 04/22/24 16:55 Sodium 139 mmol/L (136-145) 04/22/24 16:55 Potassium 3.9 mmol/L (3.5-5.1) 04/22/24 16:55 Chloride 99 mmol/L (98-107) 04/22/24 16:55 Carbon Dioxide 25 mmol/L (22-29) 04/22/24 16:55 Anion Gap 18.9 (5-19) 04/22/24 16:55 BUN 11 mg/dL (6-20) 04/22/24 16:55 Creatinine 0.4 mg/dL (0.5-0.9) L 04/22/24 16:55 GFR Calculation 165.1 mL/min (90-130) H 04/22/24 16:55 Glucose 128 mg/dL (65-115) H 04/22/24 16:55 Calculated Osmolality 289 mOsm/kg (285-295) 04/22/24 16:55 Lactic Acid 1.3 mmol/L (0.5-2.2) 04/22/24 16:55 Calcium 12.1 mg/dL (8.5-10.5) H 04/22/24 16:55 Total Bilirubin 0.4 mg/dL (0.15-1.2) 04/22/24 16:55 AST 21 U/L (0-32) 04/22/24 16:55 ALT 8 U/L (0-33) 04/22/24 16:55 Alkaline Phosphatase 92 U/L (35-105) 04/22/24 16:55 C-Reactive Protein 100.0 mg/L (0.0-4.9) H 04/22/24 16:55 Total Protein 8.9 g/dL (6.6-8.7) H 04/22/24 16:55 Albumin 4.3 g/dL (3.5-5.2) 04/22/24 16:55 Globulin 4.6 g/dL (1.3-4.6) 04/22/24 16:55 Procalcitonin 0.04 ng/mL (0-0.5) 04/22/24 16:55 No radiology studies performed this visit Discharge Plan Discharge Patient Disposition: Admitted As Inpatient Admit Provider: Isaias Koenig Clinical Impression: Dysphagia, Dehydration, Intractable pain Condition: Stable Coding Level of Care Code ED Medical Geneticist for Eduardo Varma
[2024-04-22 17:02] LABS: Basophils # 0.1 10^3/uL (0.0-0.1); Basophils % 0.5 %; Eosinophils % 0.3 %; Hematocrit 39.5 % (36-47); Lymphocytes # 1.8 10^3/uL (0.8-4.8); Lymphocytes % 14.7 %; Mean Corpuscular HGB Conc 28.4 g/dL (30-55); Mean Corpuscular Hemoglobin 22.6 pg (27-33); Mean Corpuscular Volume 79.8 fl (85-98); Mean Platelet Volume 9.2 fL (7.4-10.4); Monocytes # 0.7 10^3/uL (0.2-0.9); Monocytes % 5.8 %; Neutrophils # 9.31 10^3/uL (1.8-7.7); Neutrophils % 78.4 %; Nucleated Red Blood Cells % 0 %; Platelet Count 342 10^3/cmm (157-399); Red Blood Count 4.95 10^6/uL (3.85-5.65); Red Cell Distribution Width 22.5 % (12.1-15.1); White Blood Count 11.88 10^3/uL (3.29-11.43)
[2024-04-22 17:16] LABS: Erythrocyte Sedimentation Rate 121 mm/hr (0-15)
[2024-04-22 17:21] LABS: Alanine Aminotransferase 8 U/L (0-33); Albumin Level 4.3 g/dL (3.5-5.2); Alkaline Phosphatase 92 U/L (35-105); Blood Urea Nitrogen 11 mg/dL (6-20); Calcium 12.1 mg/dL (8.5-10.5); Carbon Dioxide 25 mmol/L (22-29); Chloride 99 mmol/L (98-107); Creatinine Clr Calc Pharmacy 148.9196; Globulin 4.6 g/dL (1.3-4.6); Glomerular Filtration Rate 165.1 mL/min (90-130); Glucose 128 mg/dL (65-115); Lactic Sepsis W/Reflex 1.3 mmol/L (0.5-2.2); Osmolality Calculated 289 mOsm/kg (285-295); Sodium 139 mmol/L (136-145); Total Bilirubin 0.4 mg/dL (0.15-1.2); Total Protein 8.9 g/dL (6.6-8.7)
[2024-04-22 17:27] LABS: Anion Gap 18.9 (5-19); Potassium 3.9 mmol/L (3.5-5.1)
[2024-04-22 17:28] LABS: Aspartate Amino Transferase 21 U/L (0-32)
[2024-04-22] MEDS: sodium chloride 0.9% 1,000 ML 999 ML IV (17:32)
[2024-04-22] MEDS: HYDROmorphone 1 mg/mL INJ 1 mL IVP ×2 (17:33→22:52)
[2024-04-22] MEDS: ondansetron 2 mg/ML SDV 2 mL 8 MG IVP (17:34)
[2024-04-22] MEDS: dexamethasone 4 mg/mL INJ 10 MG IVP (17:37)
--- NOTE | 2024-04-22 17:49 | PC.NURSE ---
Addendum entered by Abigail Ellis LPN 04/22/24 17:50: Pt o2 sat went up to 93% on 2LNC. Original Note: pt received pain medication, pt 02 sat between 88% and 89%, pt placed on 2LNC.
--- NOTE | 2024-04-22 18:03 | P.HP_ITS ---
Providers/Chief Complaint 2 Primary Care Provider: KRYS Croft Chief Complaint: trouble swallowing History of Present Illness Patient is a 58-year-old woman who presents today for further evaluation of difficulty swallowing and neck pain status post cervical fusion surgery on 04/18. Patient reports that her symptoms started about 3 days after surgery and has been worsening since then resulting in inability to swallow due to pain and some difficulty breathing. She reports that she brings back up liquids when she tries to swallow.She denies fever, chills, abdominal pain, nausea, leg swelling or any other symptoms. In the ER, she was noted to have tachycardia and signs of dehydration. She has mild leukocytosis. Dr. Devi was contacted from the ER and did not recommend any imaging. He recommended steroids and pain medications. Patient was given Decadron in the ER. Review of Systems 2 Const: Denies: fever(s) or chills Eyes: Denies: change in vision or blurry vision ENMT: Reports: throat pain and odynophagia Card: Denies: chest pain or palpitations Resp: Reports: dyspnea; Denies: productive cough GI: Denies: abdominal pain or nausea : Denies: flank pain or difficulty voiding Musc: Reports: neck pain Neuro: Denies: headache(s) Psych: Denies: anxiety Endo: Denies: polyuria Chi/Lymph: Denies: easy bruising Medications/Allergies Home Medications Medication Instructions Recorded Confirmed Last Taken Type aspirin 81 mg tablet,delayed 81 mg PO QDAY 04/26/19 04/15/24 04/14/24 History release (Aspir-) pen needle, diabetic 31 gauge x #150 ea 03/26/21 04/19/24 Unknown Rx 08/19 (BD Ultra-Fine Short Pen Needle) cholecalciferol (vitamin D3) 50 50 mcg PO DAILY 09/26/22 04/15/24 04/15/24 History mcg (2,000 unit) capsule nitroglycerin 0.4 mg sublingual 0.4 mg sublingual Q5M PRN chest 12/31/22 04/15/24 Unknown Rx tablet pain #20 tabs albuterol sulfate 90 mcg/actuation 2 puff inhalation QID PRN 01/27/23 04/15/24 1 Month Ago Rx aerosol inhaler (Ventolin HFA) shortness of breath or wheezing ~05/10/23 #8.5 grams pantoprazole 40 mg tablet,delayed 40 mg PO BID 30 days #60 tabs 10/15/23 04/18/24 04/17/24 Rx release (Protonix) polyethylene glycol 3350 17 17 g PO DAILY 1 month #510 grams 10/15/23 04/15/24 Unknown Rx gram/dose oral powder (Miralax) linaclotide 145 mcg capsule 72 mcg (0.4966 x 145 mcg) PO DAILY 01/25/24 04/18/24 04/17/24 Rx (Linzess) 30 days #30 caps trazodone 50 mg tablet 100 mg (2 x 50 mg) PO .HS PRN 02/15/24 04/15/24 04/15/24 Rx insomnia #60 tabs apremilast 30 mg tablet (Otezla) 30 mg PO BID #60 tabs 02/26/24 04/18/24 04/17/24 Rx ferrous sulfate 325 mg (65 mg 325 mg PO BID #60 tabs 03/17/24 04/15/24 04/15/24 Rx iron) tablet insulin glargine 100 unit/mL (3 15 unit (0.15 mL) SUBCUT BID #15 mL 03/17/24 04/18/24 04/17/24 Rx mL) subcutaneous pen (Basaglar KwikPen U-100 Insulin) semaglutide 3 mg tablet (Rybelsus) 3 mg PO DAILY 30 days #30 tabs 03/17/24 04/15/24 04/15/24 Rx cyclobenzaprine 10 mg tablet 10 mg PO BID 04/15/24 04/15/24 04/15/24 History dapagliflozin propanediol 10 mg 10 mg PO DAILY 04/15/24 04/15/24 04/15/24 History tablet (Farxiga) duloxetine 30 mg capsule,delayed 30 mg PO BID 04/15/24 04/18/24 04/17/24 History release fenofibrate nanocrystallized 145 145 mg PO DAILY 04/15/24 04/18/24 04/17/24 History mg tablet furosemide 20 mg tablet 20 mg PO BID 04/15/24 04/18/24 04/17/24 History gabapentin 100 mg capsule 100 mg PO BID 04/15/24 04/18/24 04/17/24 History isosorbide mononitrate 60 mg 60 mg PO DAILY 04/15/24 04/18/24 04/17/24 History tablet,extended release 24 hr metformin 500 mg tablet,extended 1,000 mg PO BID 04/15/24 04/15/24 04/15/24 History release 24 hr metoprolol tartrate 50 mg tablet 50 mg PO BID 04/15/24 04/18/24 04/17/24 History hydrocodone 5 mg-acetaminophen 325 1 - 2 tab PO .Q4-6H #40 tabs 04/19/24 Unknown Rx mg tablet Allergies Allergy/AdvReac Type Severity Reaction Status Date / Time oxycodone Allergy ALGY-Difficulty Verified 04/18/24 11:46 Breathing lisinopril AdvReac cough Verified 04/18/24 11:46 PFSH Acute 2 PFSH: Medical History Helicobacter pylori gastritis Psychiatric care Hyperlipidemia, mixed Psoriasis of scalp Noncompliance with dietary restriction Cervical disc disorder with myelopathy of mid-cervical region Diabetes mellitus with hyperglycemia, with long-term current use of insulin Essential (primary) hypertension DDD (degenerative disc disease), cervical Vitamin D insufficiency Current smoker Obesity Surgical History Hx of hernia repair Laparoscopic repair of incarcerated umbilical hernia with mesh- 06/16/23 Dr Andrea History of tubal ligation History of appendectomy History of tonsillectomy at the age of 7 Family History Other Cancer Diabetes Stroke Social History Smoking and tobacco/nicotine status: former use of tobacco/nicotine Second hand smoke exposure: No Alcohol intake: never Substance/Drug Use: never Adopted: No Caregiver/support person: No Lives independently: Yes Household members: spouse Housing: House Marital status: Number of children: 4 service: No Current occupational status: unemployed Do you think of yourself as: Straight/Heterosexual Current gender identity: Female Vitals/I&O/Wt Last Vital Signs Temp 98.9 F 04/22/24 12:49 Pulse 128 H 04/22/24 17:46 Resp 16 04/22/24 17:46 BP 150/91 04/22/24 17:46 Pulse Ox 91 04/22/24 17:46 O2 Del Method Room Air 04/22/24 17:46 Weight last 48 hrs Weight 78.471 kg Physical Exam 2 Narrative: General: Awake, alert, in mild painful distress Skin: Warm, dry. Head: Normocephalic, atraumatic. Neck: Cervical collar is in place with dressing over anterior neck. Eye: Pupils there is round and reactive to light Ears, nose, mouth and throat: Dry oral mucosa Cardiovascular: S1-S2 regular, tachycardic, normal peripheral perfusion. Respiratory: Lungs are clear to auscultation, no wheezes or crackles Gastrointestinal: Soft, Nontender, Non distended, normal bowel sounds Musculoskeletal: Normal ROM, no deformity. Neurological: Alert and oriented, No gross focal deficits Psychiatric: Cooperative, appropriate mood & affect. Data 04/22/24 16:55 04/22/24 16:55 A&P Assessment and plan (1) Intractable pain: -Neck Pain #Dysphagia - Patient presented with neck pain and trouble swallowing status post cervical fusion surgery on 04/18. -She denies fever -She has mild leukocytosis. ESR and CRP is elevated. Procalcitonin is normal - Dr. Devi was contacted from the ER and did not recommend any imaging. He recommended steroids and pain medications. -Will continue IV Decadron 4 mg every 6 hours, IV Dilaudid as needed, IV antiemetics -Continue supportive care - (2) Dehydration: # Tachycardia -Suspect due to dehydration in the setting of reduced p.o. intake -Will give IV fluids -Continue to monitor (3) Major depressive disorder, recurrent, moderate: - Continue chronic medications if able to swallow (4) Essential (primary) hypertension: - Resume antihypertensives if able to swallow (5) Diabetes mellitus with hyperglycemia, with long-term current use of insulin: - Glucose checks, sliding scale insulin Qualifiers: Diabetes mellitus type: type 2 Qualified Code(s): E11.65 - Type 2 diabetes mellitus with hyperglycemia; Z79.4 - keno terminal operator (current) use of insulin Attestations 2 Medical Necessity Statement*: Patient is admitted for inpatient care for management of neck pain, dysphagia, reduced p.o. intake status post cervical fusion surgery. Her care is expected to cross 2 midnights. Coding Level of Care Code Acute Code for g Fwd Diagnoses Intractable pain R52 Dehydration E86.0 Major depressive disorder, recurrent, moderate F33.1 Essential (primary) hypertension I10 Type 2 diabetes mellitus with hyperglycemia, with long-term current use of insulin E11.65; Z79.4 Diabetes mellitus type: type 2
[2024-04-22 18:10] LABS: Procalcitonin 0.04 ng/mL (0-0.5)
--- NOTE | 2024-04-22 19:17 | PC.NURSE ---
report called to Kathleen on med surg.
[2024-04-22 21:18] LABS: Glucose Point of Care 176 mg/dL (70-110)
[2024-04-22] MEDS: enoxaparin 40 mg/0.4 mL Syringe SUBCUT (22:42)
[2024-04-22] MEDS: dextrose 5%-sod chloride 0.45% 1,000 ML 100 ML IV (22:43)
[2024-04-22] MEDS: dexamethasone 4 mg/mL INJ IVP (22:48)
[2024-04-23 03:39] LABS: Basophils % 0.2 %; Hematocrit 39.1 % (36-47); Lymphocytes # 0.9 10^3/uL (0.8-4.8); Lymphocytes % 8.3 %; Mean Corpuscular HGB Conc 26.9 g/dL (30-55); Mean Corpuscular Hemoglobin 22.8 pg (27-33); Mean Platelet Volume 9.1 fL (7.4-10.4); Monocytes # 0.2 10^3/uL (0.2-0.9); Monocytes % 1.5 %; Neutrophils # 9.27 10^3/uL (1.8-7.7); Neutrophils % 89.6 %; Nucleated Red Blood Cells % 0 %; Platelet Count 335 10^3/cmm (157-399); Red Cell Distribution Width 22.5 % (12.1-15.1); White Blood Count 10.34 10^3/uL (3.29-11.43)
[2024-04-23 04:00] VITALS: BP 143/80; PULSE 110; RESP 15; TEMP 36.6; O2SAT 92
[2024-04-23 04:07] LABS: Anion Gap 15.2 (5-19); Blood Urea Nitrogen 15 mg/dL (6-20); Calcium 11.2 mg/dL (8.5-10.5); Carbon Dioxide 26 mmol/L (22-29); Chloride 105 mmol/L (98-107); Creatinine Clr Calc Pharmacy 115.9695; Glomerular Filtration Rate 127.6 mL/min (90-130); Glucose 228 mg/dL (65-115); Osmolality Calculated 302 mOsm/kg (285-295); Potassium 4.2 mmol/L (3.5-5.1); Sodium 142 mmol/L (136-145)
[2024-04-23 06:20] LABS: Glucose Point of Care 182 mg/dL (70-110)
[2024-04-23 08:00] VITALS: BP 140/85; PULSE 108; RESP 15; TEMP 36.8; O2SAT 96
[2024-04-23] MEDS: duloxetine 30 mg Capsule PO ×2 (08:53→17:30)
[2024-04-23] MEDS: gabapentin 100 mg Capsule PO ×2 (08:54→17:30)
[2024-04-23] MEDS: metoprolol tartrate 50 mg Tablet PO ×2 (08:54→17:30)
[2024-04-23] MEDS: isosorbide mononitrate ER 60 mg Tablet PO (08:54)
[2024-04-23] MEDS: dexamethasone 4 mg/mL INJ IVP ×3 (08:57→21:45)
[2024-04-23] MEDS: dextrose 5%-sod chloride 0.45% 1,000 ML 100 ML IV ×2 (08:58→19:13)
--- NOTE | 2024-04-23 10:07 | PM.PN ---
Subjective Subjective: No acute events overnight. Patient seen at the bedside. She reports neck pain is somewhat improved., She does have some improvement in the swallowing. She has some cough this morning. Vitals/I&O/Wt Last Vital Signs Temp 98.2 F 04/23/24 08:00 Pulse 108 H 04/23/24 08:00 Resp 15 04/23/24 08:00 BP 140/85 04/23/24 08:00 Pulse Ox 96 04/23/24 08:00 O2 Del Method Nasal Cannula 04/23/24 08:00 O2 Flow Rate 2 04/23/24 08:41 04/22/24 04/23/24 04/23/24 22:59 06:59 14:59 Intake Total 1000 / 1000 1000 / 1000 Output Total 400 / 400 Balance 1000 / 1000 -400 / 600 1000 / 1000 Weight last 48 hrs Weight 74.843 kg Weight 74.48 kg Weight 78.471 kg Physical Exam Narrative: General: Awake, alert, no acute distress, wearing nasal canula Skin: Warm, dry. Head: Normocephalic, atraumatic. Neck: Cervical collar is in place with dressing over anterior neck. Eye: Pupils there is round and reactive to light Ears, nose, mouth and throat: Dry oral mucosa Cardiovascular: S1-S2 regular rate, rhythm , normal peripheral perfusion. Respiratory: Breath sounds somewhat coarse today, , no wheezes or crackles Gastrointestinal: Soft, Nontender, Non distended, normal bowel sounds Musculoskeletal: Normal ROM, no deformity. Neurological: Alert and oriented, No gross focal deficits Psychiatric: Cooperative, appropriate mood & affect. Data 04/23/24 02:23 04/23/24 02:23 Micro: Microbiology 04/22/24 17:53 Blood Culture - Preliminary Blood SPECIMEN COLLECTED 04/22/24 17:50 Blood Culture - Preliminary Blood SPECIMEN COLLECTED A&P Assessment and plan (1) Intractable pain: #Neck Pain #Dysphagia -Patient presented with neck pain and trouble swallowing status post cervical fusion surgery on 04/18. -She denies fever, She has mild leukocytosis at admission which is resolved today. ESR and CRP is elevated. Procalcitonin is normal - Dr. Devi was contacted from the ER and did not recommend any imaging. He recommended steroids and pain medications. -Will continue IV Decadron 4 mg every 8 hours, IV morphine as needed, IV antiemetics -Continue supportive care - (2) Dehydration: # Tachycardia -Suspect due to dehydration in the setting of reduced p.o. intake and is improved today -Will give IV fluids -Continue to monitor (3) Major depressive disorder, recurrent, moderate: - Continue chronic medications if able to swallow (4) Essential (primary) hypertension: - Resume antihypertensives if able to swallow (5) Diabetes mellitus with hyperglycemia, with long-term current use of insulin: - Glucose checks, sliding scale insulin Qualifiers: Diabetes mellitus type: type 2 Qualified Code(s): E11.65 - Type 2 diabetes mellitus with hyperglycemia; Z79.4 - ocean transportation intermediary (current) use of insulin Plan #Cough -Get sputum cultures -Get chest x-ray Attestations Medical Necessity Statement*: Patient to continue inpatient care for management of neck pain, dysphagia, reduced p.o. intake status post cervical fusion surgery. Coding Level of Care Code Acute Code for Chg Fwd Diagnoses Intractable pain R52 Dehydration E86.0 Major depressive disorder, recurrent, moderate F33.1 Essential (primary) hypertension I10 Type 2 diabetes mellitus with hyperglycemia, with long-term current use of insulin E11.65; Z79.4 Diabetes mellitus type: type 2
--- NOTE | 2024-04-23 10:57 | PC.CHAP ---
Pastoral Care Encounter/Spiritual Assessment Type of Contact [] Declined legal compliance officer visit [] Patient/Family/Request visit [] Outpatient visit [] Follow-up visit [] Physician referral [] Code/Alert [] Routine visit [] Staff referral [] Actively dying [] Patient sleeping [] Family support [] [] Out of room [] Palliative care [] [] Receiving care in room [] Pre-surgical visit [] Trauma [] Long length of stay [] ICU visit [x] Other: Staff Relational/Emotional Strength [] Patient feels connected with others/family/visitors/staff [] Distress [] Loneliness/isolation [] Abandonment Spirituality of Patient [] Person of Bouchra [] Attends Congregational of their Bouchra [] Believes in Prayer [] Reads Bible or Evangelical materials [] There are Spiritual issues to be addressed Audit Officer Interventions [] Prayer [] Active listening [] Non-anxious presence [] Spiritual/emotional support [] Crisis/trauma care [] Spiritual counseling [] Bereavement support [] Provided bereavement packet [] Provided Bible/devotional materials [] Provided toy/stuffed animal, coloring book to patient or family member [] Provided Communion [] Anointing/[place] [] Salvation [] Completed spiritual assessment [] Other: Impact on Illness or Injury [] Angry [] Fearful [] Anxious [] Often cries [] Exhaustion [] Unable to work [] Unable to attend islam [] Unable to walk/stand [] Unable to read [] Unable to drive [] Unable to eat/drink [] Unable to sleep [] Unable to be with family [] Patient intubated [] Other: Summary Time spent with patient
--- NOTE | 2024-04-23 11:01 | P.CONIM_ITS ---
Providers/Reason For Consult 2 Consulting Physician/Specialty*: Hospitalist Reason for Consult*: Swallowing issues Attending Physician: Isaias Koenig MD Primary Care Provider: KRYS Croft History of Present Illness History of Present Illness Jovanna Canales is a 58 year old female had ACDF with corpectomy on 04/18/2024. Was doing well had swallowing issues yesterday. She is admitted put on steroids this morning her swallowing issues have improved she is able to swallow her medicines. Review of Systems 2 Const: Denies: fever(s) or chills Eyes: Denies: change in vision or blurry vision ENMT: Reports: throat pain and odynophagia Card: Denies: chest pain or palpitations Resp: Reports: dyspnea; Denies: productive cough GI: Denies: abdominal pain or nausea : Denies: flank pain or difficulty voiding Musc: Reports: neck pain Neuro: Denies: headache(s) Psych: Denies: anxiety Endo: Denies: polyuria Chi/Lymph: Denies: easy bruising Medications/Allergies Home Medications Medication Instructions Recorded Confirmed Last Taken Type aspirin 81 mg tablet,delayed 81 mg PO QDAY 04/26/19 04/23/24 04/14/24 History release (Aspir-) pen needle, diabetic 31 gauge x #150 ea 03/26/21 04/23/24 Unknown Rx 5/16 (BD Ultra-Fine Short Pen Needle) cholecalciferol (vitamin D3) 50 50 mcg PO DAILY 09/26/22 04/23/24 04/15/24 History mcg (2,000 unit) capsule nitroglycerin 0.4 mg sublingual 0.4 mg sublingual Q5M PRN chest 12/31/22 04/23/24 Unknown Rx tablet pain #20 tabs pantoprazole 40 mg tablet,delayed 40 mg PO BID 30 days #60 tabs 10/15/23 04/23/24 04/17/24 Rx release (Protonix) polyethylene glycol 3350 17 17 g PO DAILY 1 month #510 grams 10/15/23 04/23/24 Unknown Rx gram/dose oral powder (Miralax) trazodone 50 mg tablet 100 mg (2 x 50 mg) PO .HS PRN 02/15/24 04/23/24 04/15/24 Rx insomnia #60 tabs apremilast 30 mg tablet (Otezla) 30 mg PO BID #60 tabs 02/26/24 04/23/24 04/17/24 Rx ferrous sulfate 325 mg (65 mg 325 mg PO BID #60 tabs 03/17/24 04/23/24 04/15/24 Rx iron) tablet insulin glargine 100 unit/mL (3 15 unit (0.15 mL) SUBCUT BID #15 mL 03/17/24 04/23/24 04/17/24 Rx mL) subcutaneous pen (Basaglar KwikPen U-100 Insulin) semaglutide 3 mg tablet (Rybelsus) 3 mg PO DAILY 30 days #30 tabs 03/17/24 04/23/24 04/15/24 Rx cyclobenzaprine 10 mg tablet 10 mg PO BID 04/15/24 04/23/24 04/15/24 History dapagliflozin propanediol 10 mg 10 mg PO DAILY 04/15/24 04/23/24 04/15/24 History tablet (Farxiga) duloxetine 30 mg capsule,delayed 30 mg PO BID 04/15/24 04/23/24 04/17/24 History release fenofibrate nanocrystallized 145 145 mg PO DAILY 04/15/24 04/23/24 04/17/24 History mg tablet furosemide 20 mg tablet 20 mg PO BID 04/15/24 04/23/24 04/17/24 History gabapentin 100 mg capsule 100 mg PO BID 04/15/24 04/23/24 04/17/24 History isosorbide mononitrate 60 mg 60 mg PO DAILY 04/15/24 04/23/24 04/17/24 History tablet,extended release 24 hr metformin 500 mg tablet,extended 1,000 mg PO BID 04/15/24 04/23/24 04/15/24 History release 24 hr metoprolol tartrate 50 mg tablet 50 mg PO BID 04/15/24 04/23/24 04/17/24 History hydrocodone 5 mg-acetaminophen 325 1 - 2 tab PO .Q4-6H #40 tabs 04/19/24 04/23/24 Unknown Rx mg tablet linaclotide 72 mcg capsule 72 mcg PO DAILY 04/23/24 04/23/24 Unknown History (Linzess) Allergies Allergy/AdvReac Type Severity Reaction Status Date / Time oxycodone Allergy ALGY-Difficulty Verified 04/18/24 11:46 Breathing lisinopril AdvReac cough Verified 04/18/24 11:46 Current Medications Generic Name Dose Route Start Last Admin Trade Name Prabhjot PRN Reason Stop Dose Admin Duloxetine HCl 30 mg 04/23/24 09:00 04/23/24 08:53 Duloxetine 30 Mg Capsule PO 30 mg BID FREDERIC Administration Enoxaparin Sodium 40 mg 04/22/24 19:51 04/22/24 22:42 Enoxaparin 40 Mg/0.4 Ml Syringe SUBCUT 40 mg Q24H FREDERIC Administration Gabapentin 100 mg 04/23/24 09:00 04/23/24 08:54 Gabapentin 100 Mg Capsule PO 100 mg BID FREDERIC Administration Dextrose/Sodium Chloride 1,000 mls @ 100 mls/hr 04/22/24 19:51 04/23/24 08:58 Dextrose 5%-Sod Chloride 0.45% IV 100 mls/hr .Q10H FREDERIC Administration Isosorbide Mononitrate 60 mg 04/23/24 09:00 04/23/24 08:54 Isosorbide Mononitrate Er 60 Mg Tablet PO 60 mg DAILY FREDERIC Administration Metoprolol Tartrate 50 mg 04/23/24 09:00 04/23/24 08:54 Metoprolol Tartrate 50 Mg Tablet PO 50 mg BID FREDERIC Administration PFSH Acute 2 PFSH: Medical History Helicobacter pylori gastritis Psychiatric care Hyperlipidemia, mixed Psoriasis of scalp Noncompliance with dietary restriction Cervical disc disorder with myelopathy of mid-cervical region Diabetes mellitus with hyperglycemia, with long-term current use of insulin Essential (primary) hypertension DDD (degenerative disc disease), cervical Vitamin D insufficiency Current smoker Obesity Surgical History Hx of hernia repair Laparoscopic repair of incarcerated umbilical hernia with mesh- 06/16/23 Dr Andrea History of tubal ligation History of appendectomy 1979' History of tonsillectomy at the age of 7 Family History Other Cancer Diabetes Stroke Social History Smoking and tobacco/nicotine status: former use of tobacco/nicotine Second hand smoke exposure: No Alcohol intake: never Substance/Drug Use: never Adopted: No Caregiver/support person: No Lives independently: Yes Household members: spouse Housing: House Marital status: Number of children: 4 service: No Current occupational status: unemployed Do you think of yourself as: Straight/Heterosexual Current gender identity: Female Vitals/I&O/Wt Last Vital Signs Temp 98.2 F 04/23/24 08:00 Pulse 108 H 04/23/24 08:00 Resp 15 04/23/24 08:00 BP 140/85 04/23/24 08:00 Pulse Ox 96 04/23/24 08:00 O2 Del Method Nasal Cannula 04/23/24 08:00 O2 Flow Rate 2 04/23/24 08:41 04/22/24 04/23/24 04/23/24 22:59 06:59 14:59 Intake Total 1000 / 1000 1000 / 1000 Output Total 400 / 400 Balance 1000 / 1000 -400 / 600 1000 / 1000 Weight last 48 hrs Weight 165 lb Weight 164 lb 3.2 oz Weight 173 lb Physical Exam 2 Narrative: Alert and oriented x 3 Head is normocephalic atraumatic Respirations are intact No evidence of any rashes or infection 5/5 strength in bilateral upper and lowe r extremities Sensation intact in all extremities Deep tendon reflexes 2 out of 4 bilateral upper and lower extremities Data 04/23/24 02:23 04/23/24 02:23 Micro: Microbiology 04/22/24 17:53 Blood Culture - Preliminary Blood SPECIMEN COLLECTED 04/22/24 17:50 Blood Culture - Preliminary Blood SPECIMEN COLLECTED A&P Assessment and plan (1) Status post cervical spinal fusion: Postop day #5 ACDF. Patient swallowing issues seem to be resolving. At this point okay to discharge from spine standpoint. Encouraged her to eat ice cream and popsicles. If she has difficulty swallowing she can crush up her pills and ice cream. Will plan to see her next week in the clinic. Consult Attestations 2 Medical Necessity Statement: Per primary service Coding Level of Care Code Acute Code for Chg Fwd Diagnoses Status post cervical spinal fusion Z98.1
[2024-04-23 11:42] LABS: Glucose Point of Care 156 mg/dL (70-110)
[2024-04-23 12:00] VITALS: BP 128/79; PULSE 79; RESP 15; TEMP 36.4; O2SAT 95
[2024-04-23] MEDS: insulin lispro 100 unit/1 mL SUBCUT ×3 (12:33→21:45)
--- NOTE | 2024-04-23 14:53 | XRR_ITS ---
PROCEDURE INFORMATION: Exam: XR Chest Exam date and time: 04/23/2024 3:53 PM Age: 58 years old Clinical indication: Cough TECHNIQUE: Imaging protocol: Radiologic exam of the chest. Views: 1 view. COMPARISON: CT angio chest PE protcl [id number] 09/04/2018 12:04 PM FINDINGS: Lungs: Linear areas of scarring in the left lung base. No consolidation. Pleural spaces: Unremarkable. No pleural effusion. No pneumothorax. Heart/Mediastinum: Unremarkable. No cardiomegaly. Bones/joints: ACDF hardware noted in the cervical spine. XR/XR chest 1V portable [id number] IMPRESSION: No acute findings.
[2024-04-23 16:00] VITALS: BP 135/74; PULSE 89; RESP 15; TEMP 36.8; O2SAT 95
[2024-04-23 16:09] VITALS: RESP 15; O2SAT 95
[2024-04-23] MEDS: HYDROmorphone 1 mg/mL INJ 1 mL IVP (16:09)
[2024-04-23 17:00] LABS: Glucose Point of Care 205 mg/dL (70-110)
[2024-04-23 18:53] LABS: Calcium 11.4 mg/dL (8.5-10.5)
[2024-04-23 19:01] LABS: Parathyroid Hormone 40.7 pg/mL (15-65)
[2024-04-23 20:00] VITALS: BP 118/72; PULSE 71; RESP 16; TEMP 36.8; O2SAT 96
[2024-04-23 20:50] LABS: Glucose Point of Care 211 mg/dL (70-110)
[2024-04-23] MEDS: enoxaparin 40 mg/0.4 mL Syringe SUBCUT (21:45)
[2024-04-23] MEDS: sodium chloride 0.9% 1,000 ML 100 ML IV (22:20)
[2024-04-24] VITALS: BP 124/72; PULSE 74; RESP 18; TEMP 36.9; O2SAT 99
--- NOTE | 2024-04-24 00:20 | PC.NURSE ---
Addendum entered by Urvashi Chen RN 04/24/24 00:23: Also notified that patient takes PRN Hydrocodone at home for pain. Ordered to continue this home medication. Original Note: Dr. Barbosa notified that patient currently has IV fluids running that contain dextrose. Notified that patient's blood sugar is 211 and patient is diabetic. Notified that the patient is able to swallow liquids and soft foods. Ordered to change IV fluids to NS at same rate.
[2024-04-24 04:00] VITALS: BP 125/66; PULSE 73; RESP 16; TEMP 36.7; O2SAT 99
[2024-04-24] MEDS: HYDROcodone-acetaminophen 5-325 mg Tablet PO ×3 (04:05→14:38)
[2024-04-24 04:44] LABS: Basophils % 0.4 %; Hematocrit 34.4 % (36-47); Lymphocytes # 1.2 10^3/uL (0.8-4.8); Lymphocytes % 11.7 %; Mean Corpuscular HGB Conc 26.5 g/dL (30-55); Mean Corpuscular Hemoglobin 22.7 pg (27-33); Mean Corpuscular Volume 85.8 fl (85-98); Mean Platelet Volume 9.5 fL (7.4-10.4); Monocytes # 0.3 10^3/uL (0.2-0.9); Monocytes % 3.1 %; Neutrophils # 8.55 10^3/uL (1.8-7.7); Neutrophils % 84.3 %; Nucleated Red Blood Cells % 0 %; Platelet Count 315 10^3/cmm (157-399); Red Blood Count 4.01 10^6/uL (3.85-5.65); Red Cell Distribution Width 21.7 % (12.1-15.1); White Blood Count 10.14 10^3/uL (3.29-11.43)
[2024-04-24 05:11] LABS: Albumin Level 3.2 g/dL (3.5-5.2); Anion Gap 9.6 (5-19); Blood Urea Nitrogen 20 mg/dL (6-20); Calcium 11.7 mg/dL (8.5-10.5); Carbon Dioxide 29 mmol/L (22-29); Chloride 105 mmol/L (98-107); Creatinine Clr Calc Pharmacy 116.2574; Glomerular Filtration Rate 127.6 mL/min (90-130); Glucose 136 mg/dL (65-115); Phosphorus 2.4 mg/dL (2.5-4.5); Potassium 4.6 mmol/L (3.5-5.1); Sodium 139 mmol/L (136-145)
[2024-04-24 06:30] LABS: Glucose Point of Care 134 mg/dL (70-110)
[2024-04-24 08:00] VITALS: BP 178/102; PULSE 94; RESP 16; TEMP 36.4; O2SAT 99
[2024-04-24] MEDS: sodium chloride 0.9% 1,000 ML 100 ML IV ×2 (09:17→20:09)
[2024-04-24] MEDS: dexamethasone 4 mg/mL INJ IVP ×3 (09:19→20:10)
[2024-04-24] MEDS: isosorbide mononitrate ER 60 mg Tablet PO (09:19)
[2024-04-24] MEDS: gabapentin 100 mg Capsule PO ×2 (09:19→17:21)
[2024-04-24] MEDS: duloxetine 30 mg Capsule PO ×2 (09:19→17:19)
[2024-04-24] MEDS: metoprolol tartrate 50 mg Tablet PO ×2 (09:19→17:20)
--- NOTE | 2024-04-24 10:11 | P.PN_ITS ---
Subjective 2 Subjective: Reports she is still having some problems eating. Says that things are getting stuck in her throat. She was able to eat some scrambled eggs this morning. Reports her pain at a 5-6 out of 10. Medications: Reviewed: Yes Vitals/I&O/Wt Last Vital Signs Temp 97.5 F L 04/24/24 08:00 Pulse 94 04/24/24 08:00 Resp 16 04/24/24 08:00 BP 178/102 04/24/24 08:00 Pulse Ox 99 04/24/24 08:00 O2 Del Method Room Air 04/24/24 08:00 O2 Flow Rate 2 04/24/24 07:23 04/23/24 04/24/24 04/24/24 22:59 06:59 14:59 Intake Total 1795 / 2795 1120 / 1120 Output Total 900 / 900 Balance 1795 / 2795 -900 / 1895 1120 / 1120 Weight last 48 hrs Weight 171 lb 1.6 oz Weight 165 lb Weight 164 lb 3.2 oz Weight 173 lb Physical Exam 2 Narrative: General: Cooperative patient in no apparent distress. Well developed. HEENT: Normocephalic, Atraumatic. External ears normal. Nasal passages patent without drainage. MMM. Cervical collar is in place. Heart: RRR. Resp: LCTA. No respiratory distress, no use of accessory muscles. Abd: Soft, non-tender. Non-distended. Extremities: No edema. 2+ pedal pulses Skin: No rash or lesions on exposed areas. Data 04/24/24 03:41 04/24/24 03:41 Micro: Microbiology 04/22/24 17:53 Blood Culture - Preliminary Blood NEGATIVE TO DATE 04/22/24 17:50 Blood Culture - Preliminary Blood NEGATIVE TO DATE A&P Assessment and plan (1) Intractable pain: (2) Dehydration: (3) Major depressive disorder, recurrent, moderate: (4) Essential (primary) hypertension: (5) Diabetes mellitus with hyperglycemia, with long-term current use of insulin: Qualifiers: Diabetes mellitus type: type 2 Qualified Code(s): E11.65 - Type 2 diabetes mellitus with hyperglycemia; Z79.4 - buttermilk drier operator (current) use of insulin (6) Dysphagia: Qualifiers: Dysphagia type: oropharyngeal phase Qualified Code(s): R13.12 - Dysphagia, oropharyngeal phase Plan 58-year-old female admitted for intractable pain, dysphagia, dehydration. Continue close inpatient monitoring Patient presented with neck pain and trouble swallowing status post cervical fusion surgery on 04/18. She still having some problems swallowing. She says she has been able to drink fluids okay, but she has not been able to progress her diet due to the dysphagia. Will continue IV Decadron 4 mg every 8 hours, IV morphine as needed, IV antiemetics Continue supportive cares, pain control. BP is better controlled at this time. Continue home meds. Continue Glucose checks, sliding scale insulin I would like to see some improvement in her diet before sending her home. Recheck her inflammatory markers. Her CRP was 100 and her ESR was 121. If she is able to continue with tolerating diet and fluid intake, we can likely discharge her home either this evening or tomorrow. Will need to arrange for follow-up with Dr. Devi on discharge. Possible discharge tomorrow if remains stable and improved. Code Status: Full IVF: NS @ 100 DVT PPx: Lovenox GI PPx: None ABx: None Diet: CC with advancement as tolerated. Discharge plan: Home when stable and appropriate. Attestations 2 Medical Necessity Statement*: Patient to continue inpatient care for management of neck pain, dysphagia, reduced p.o. intake status post cervical fusion surgery. Coding Level of Care Code Acute Code for Chg Fwd Moderate MDM includes number and complexity of problems actively addressed during encounter, amount and/or complexity of data reviewed/ordered and described risk of complication, morbidity or mortality of management as documented Diagnoses Intractable pain R52 Dehydration E86.0 Major depressive disorder, recurrent, moderate F33.1 Essential (primary) hypertension I10 Type 2 diabetes mellitus with hyperglycemia, with long-term current use of insulin E11.65; Z79.4 Diabetes mellitus type: type 2 Oropharyngeal dysphagia R13.12 Dysphagia type: oropharyngeal phase
[2024-04-24 10:37] LABS: Glucose Point of Care 147 mg/dL (70-110)
[2024-04-24 11:58] VITALS: BP 126/67; PULSE 65; RESP 17; TEMP 36.7; O2SAT 97
[2024-04-24] MEDS: insulin lispro 100 unit/1 mL SUBCUT ×3 (12:02→22:18)
[2024-04-24 16:00] VITALS: BP 135/79; PULSE 83; RESP 17; TEMP 36.7; O2SAT 95
[2024-04-24 16:58] LABS: Glucose Point of Care 243 mg/dL (70-110)
[2024-04-24 20:00] VITALS: BP 148/72; PULSE 67; RESP 19; TEMP 36.3; O2SAT 98
[2024-04-24] MEDS: enoxaparin 40 mg/0.4 mL Syringe SUBCUT (20:10)
[2024-04-24 21:19] LABS: Glucose Point of Care 172 mg/dL (70-110)
[2024-04-25] VITALS: BP 145/78; PULSE 66; RESP 17; TEMP 36.7; O2SAT 95
[2024-04-25 04:00] VITALS: BP 169/95; PULSE 68; RESP 16; TEMP 36.6; O2SAT 93
[2024-04-25] MEDS: sodium chloride 0.9% 1,000 ML 100 ML IV (05:58)
[2024-04-25 06:31] LABS: Glucose Point of Care 239 mg/dL (70-110)
[2024-04-25 07:54] VITALS: BP 187/84; PULSE 70; RESP 17; TEMP 36.5; O2SAT 97
[2024-04-25 08:52] LABS: Basophils # 0.1 10^3/uL (0.0-0.1); Basophils % 0.5 %; Eosinophils % 0.1 %; Hematocrit 35.5 % (36-47); Lymphocytes # 2.4 10^3/uL (0.8-4.8); Lymphocytes % 25.7 %; Mean Corpuscular Hemoglobin 22.3 pg (27-33); Mean Corpuscular Volume 82.6 fl (85-98); Mean Platelet Volume 9.3 fL (7.4-10.4); Monocytes # 0.5 10^3/uL (0.2-0.9); Monocytes % 5.9 %; Neutrophils # 6.17 10^3/uL (1.8-7.7); Neutrophils % 67.4 %; Nucleated Red Blood Cells % 0 %; Platelet Count 318 10^3/cmm (157-399); Red Cell Distribution Width 21.2 % (12.1-15.1); White Blood Count 9.16 10^3/uL (3.29-11.43)
[2024-04-25 09:16] LABS: Alanine Aminotransferase 28 U/L (0-33); Albumin Level 3.5 g/dL (3.5-5.2); Alkaline Phosphatase 90 U/L (35-105); Anion Gap 12.9 (5-19); Aspartate Amino Transferase 29 U/L (0-32); Blood Urea Nitrogen 13 mg/dL (6-20); Calcium 10.7 mg/dL (8.5-10.5); Carbon Dioxide 29 mmol/L (22-29); Chloride 101 mmol/L (98-107); Creatinine Clr Calc Pharmacy 150.4041; Globulin 3.5 g/dL (1.3-4.6); Glomerular Filtration Rate 165.1 mL/min (90-130); Glucose 129 mg/dL (65-115); Osmolality Calculated 290 mOsm/kg (285-295); Potassium 3.9 mmol/L (3.5-5.1); Sodium 139 mmol/L (136-145); Total Bilirubin 0.2 mg/dL (0.15-1.2)
[2024-04-25] MEDS: insulin lispro 100 unit/1 mL SUBCUT (10:26)
[2024-04-25] MEDS: duloxetine 30 mg Capsule PO (10:26)
[2024-04-25] MEDS: metoprolol tartrate 50 mg Tablet PO (10:26)
[2024-04-25] MEDS: isosorbide mononitrate ER 60 mg Tablet PO (10:26)
[2024-04-25] MEDS: dexamethasone 4 mg/mL INJ IVP (10:26)
[2024-04-25] MEDS: gabapentin 100 mg Capsule PO (10:26)
[2024-04-25] MEDS: HYDROcodone-acetaminophen 5-325 mg Tablet PO (10:29)
[2024-04-25 11:23] VITALS: BP 184/92; PULSE 66; RESP 16; TEMP 37; O2SAT 98
[2024-04-25 11:45] LABS: Glucose Point of Care 110 mg/dL (70-110)
--- NOTE | 2024-04-25 13:09 | PM.DCS ---
Discharge Providers Date of Admission: 04/22/24 17:15 Date of Discharge: April 25, 2024 Attending Provider at Admission: Isaias Koenig MD Attending Provider at Discharge: Cristian Barrett MD Consults: Orthopedics: Dr. Devi Primary Care Provider: KRYS Croft Diagnoses at Discharge Discharge Diagnosis (1) Intractable pain: Status: Acute (2) Dehydration: Status: Acute (3) Major depressive disorder, recurrent, moderate: Status: Acute (4) Essential (primary) hypertension: Status: Chronic (5) Diabetes mellitus with hyperglycemia, with long-term current use of insulin: Status: Chronic Qualifiers: Diabetes mellitus type: type 2 Qualified Code(s): E11.65 - Type 2 diabetes mellitus with hyperglycemia; Z79.4 - FPC (current) use of insulin (6) Dysphagia: Status: Acute Qualifiers: Dysphagia type: oropharyngeal phase Qualified Code(s): R13.12 - Dysphagia, oropharyngeal phase Reason for Visit Reason for Visit: trouble swallowing Brief History: History as per HPI: Patient is a 58-year-old woman who presents today for further evaluation of difficulty swallowing and neck pain status post cervical fusion surgery on 04/18. Patient reports that her symptoms started about 3 days after surgery and has been worsening since then resulting in inability to swallow due to pain and some difficulty breathing. She reports that she brings back up liquids when she tries to swallow.She denies fever, chills, abdominal pain, nausea, leg swelling or any other symptoms. In the ER, she was noted to have tachycardia and signs of dehydration. She has mild leukocytosis. Dr. Devi was contacted from the ER and did not recommend any imaging. He recommended steroids and pain medications. Patient was given Decadron in the ER. Hospital Course Hospital Course Patient was admitted to the hospital further evaluation management. Orthopedics was consulted. She was started on IV steroids and pain medications along with IV fluids for dehydration which was causing her to have tachycardia. She responded well to the treatment. Diet has been modified as per speech evaluation. She has been discharged after clearance with orthopedic team back home on a pur?ed diet. During hospitalization she was found to have elevated blood pressures for which 10 mg of amlodipine has been added to her medication list daily. She is to continue checking her blood pressure daily at home maintain a blood pressure diary to follow-up with a primary care provider within next 2 weeks for further adjustment of antihypertensives with goal blood pressure of less than 140/90 mmHg. Given her limited oral intake for now her home dose of Lantus has been changed to 5 units twice daily. Physical Exam Narrative: General: Cooperative patient in no apparent distress. Well developed. HEENT: Normocephalic, Atraumatic. External ears normal. Nasal passages patent without drainage. MMM. Cervical collar is in place. Heart: RRR. Resp: LCTA. No respiratory distress, no use of accessory muscles. Abd: Soft, non-tender. Non-distended. Extremities: No edema. 2+ pedal pulses Skin: No rash or lesions on exposed areas. Discharge Data Studies Completed and Pending Completed Studies During Hospitalization Category Date Time Status XR chest 1V portable [id number] Routine Exams 04/23/24 14:53 Completed Pending at discharge Category Date Time Status Blood Culture Stat Lab 04/22/24 17:53 Results Sputum Culture Routine Lab 04/23/24 14:53 Uncollected Radiology Impressions Chest X-Ray 04/23/24 14:53 IMPRESSION: No acute findings. Laboratory Results WBC 9.16 10^3/uL (3.29-11.43) 04/25/24 08:20 RBC 4.30 10^6/uL (3.85-5.65) 04/25/24 08:20 Hgb 9.60 g/dL (11.27-16.99) L 04/25/24 08:20 Hct 35.5 % (36-47) L 04/25/24 08:20 MCV 82.6 fl (85-98) L 04/25/24 08:20 MCH 22.3 pg (27-33) L 04/25/24 08:20 MCHC 27.0 g/dL (30-55) L 04/25/24 08:20 RDW 21.2 % (12.1-15.1) H 04/25/24 08:20 Plt Count 318 10^3/cmm (157-399) 04/25/24 08:20 MPV 9.3 fL (7.4-10.4) 04/25/24 08:20 Neut % (Auto) 67.4 % 04/25/24 08:20 Lymph % (Auto) 25.7 % 04/25/24 08:20 [place] % (Auto) 5.9 % 04/25/24 08:20 Eos % (Auto) 0.1 % 04/25/24 08:20 Baso % (Auto) 0.5 % 04/25/24 08:20 Neut # (Auto) 6.17 10^3/uL (1.8-7.7) 04/25/24 08:20 Lymph # (Auto) 2.4 10^3/uL (0.8-4.8) 04/25/24 08:20 [place] # (Auto) 0.5 10^3/uL (0.2-0.9) 04/25/24 08:20 Eos # (Auto) 0.0 10^3/uL (0.0-0.8) 04/25/24 08:20 Baso # (Auto) 0.1 10^3/uL (0.0-0.1) 04/25/24 08:20 Nucleated RBC % (auto) 0 % 04/25/24 08:20 Nucleated RBCs # 0.0 /100WBC 04/25/24 08:20 ESR 121 mm/hr (0-15) H 04/22/24 16:55 Sodium 139 mmol/L (136-145) 04/25/24 08:20 Potassium 3.9 mmol/L (3.5-5.1) 04/25/24 08:20 Chloride 101 mmol/L (98-107) 04/25/24 08:20 Carbon Dioxide 29 mmol/L (22-29) 04/25/24 08:20 Anion Gap 12.9 (5-19) 04/25/24 08:20 BUN 13 mg/dL (6-20) 04/25/24 08:20 Creatinine 0.4 mg/dL (0.5-0.9) L 04/25/24 08:20 GFR Calculation 165.1 mL/min (90-130) H 04/25/24 08:20 Glucose 129 mg/dL (65-115) H 04/25/24 08:20 POC Glucose 110 mg/dL (70-110) 04/25/24 11:23 Calculated Osmolality 290 mOsm/kg (285-295) 04/25/24 08:20 Lactic Acid 1.3 mmol/L (0.5-2.2) 04/22/24 16:55 Calcium 10.7 mg/dL (8.5-10.5) H 04/25/24 08:20 Phosphorus 2.4 mg/dL (2.5-4.5) L 04/24/24 03:41 Total Bilirubin 0.2 mg/dL (0.15-1.2) 04/25/24 08:20 AST 29 U/L (0-32) 04/25/24 08:20 ALT 28 U/L (0-33) 04/25/24 08:20 Alkaline Phosphatase 90 U/L (35-105) 04/25/24 08:20 C-Reactive Protein 100.0 mg/L (0.0-4.9) H 04/22/24 16:55 Total Protein 7.0 g/dL (6.6-8.7) 04/25/24 08:20 Albumin 3.5 g/dL (3.5-5.2) 04/25/24 08:20 Globulin 3.5 g/dL (1.3-4.6) 04/25/24 08:20 Procalcitonin 0.04 ng/mL (0-0.5) 04/22/24 16:55 PTH Intact 40.7 pg/mL (15-65) 04/23/24 02:23 Calcium (PTH Intact) 11.4 mg/dL (8.5-10.5) H 04/23/24 02:23 Vitals Last Vital Signs Temp 98.6 F 04/25/24 11:23 Pulse 66 04/25/24 11:23 Resp 16 04/25/24 11:23 BP 184/92 04/25/24 11:23 Pulse Ox 98 04/25/24 11:23 O2 Del Method Nasal Cannula 04/25/24 11:23 O2 Flow Rate 2 04/25/24 11:23 Discharge Plan Discharge Patient Disposition: Home Condition: Stable Prescriptions: New amlodipine 10 mg tablet 10 mg PO QPM Qty: 30 0RF Continued aspirin [Aspir-81] 81 mg tablet,delayed release (DR/EC) 81 mg PO QDAY Hold Instructions: Resume on 04/20/24. (DME) pen needle, diabetic [BD Ultra-Fine Short Pen Needle] 31 gauge x 5/16 needle See Rx Instructions .ROUTE .MEDSUPPLY Qty: 150 5RF Rx Instructions: 5 TIMES DAY nitroglycerin 0.4 mg tablet, sublingual 0.4 mg SUBLINGUAL Q5M PRN (Reason: chest pain) Qty: 20 1RF Rx Instructions: 1 tab every 5 minutes up to 3 times trazodone 50 mg tablet 100 mg PO .HS PRN (Reason: insomnia) Qty: 60 2RF Otezla 30 mg tablet 30 mg PO BID Qty: 60 5RF ferrous sulfate 325 mg (65 mg iron) tablet 325 mg PO BID Qty: 60 2RF Rybelsus 3 mg tablet 3 mg PO DAILY 30 Days Qty: 30 0RF cholecalciferol (vitamin D3) 50 mcg (2,000 unit) capsule 50 mcg PO DAILY pantoprazole [Protonix] 40 mg tablet,delayed release (DR/EC) 40 mg PO BID 30 Days Qty: 60 12RF polyethylene glycol 3350 [Miralax] 17 gram/dose powder 17 g PO DAILY 30 Days Qty: 510 0RF cyclobenzaprine 10 mg tablet 10 mg PO BID Rx Instructions: TAKE ONE TABLET BY MOUTH TWO TIMES DAILY NEEDED FOR MUSCLE SPASMS isosorbide mononitrate 60 mg tablet extended release 24 hr 60 mg PO DAILY Rx Instructions: TAKE ONE TABLET BY MOUTH EVERY MORNING metoprolol tartrate 50 mg tablet 50 mg PO BID Rx Instructions: TAKE ONE TABLET BY MOUTH TWICE DAILY gabapentin 100 mg capsule 100 mg PO BID Rx Instructions: TAKE ONE CAPSULE BY MOUTH TWICE DAILY FOR 30 DAYS metformin 500 mg tablet extended release 24 hr 1,000 mg PO BID Rx Instructions: TAKE TWO TABLETS BY MOUTH TWICE DAILY duloxetine 30 mg capsule,delayed release(DR/EC) 30 mg PO BID Rx Instructions: TAKE ONE CAPSULE BY MOUTH TWICE DAILY fenofibrate nanocrystallized 145 mg tablet 145 mg PO DAILY Rx Instructions: TAKE ONE TABLET BY MOUTH DAILY dapagliflozin propanediol [Farxiga] 10 mg tablet 10 mg PO DAILY Rx Instructions: TAKE ONE TABLET BY MOUTH EVERY MORNING hydrocodone-acetaminophen 5-325 mg tablet 1 - 2 tab PO .Q4-6H Qty: 40 0RF Linzess 72 mcg capsule 72 mcg PO DAILY Changed insulin glargine [Basaglar KwikPen U-100 Insulin] 100 unit/mL (3 mL) insulin pen 5 unit SUBCUT BID Qty: 15 2RF Held furosemide 20 mg tablet 20 mg PO BID Hold Instructions: Resume on 05/09/24. Rx Instructions: TAKE ONE TABLET BY MOUTH TWICE DAILY Discharge Orders: Discharge Order (Routine); Ordered 04/25/24 Ordered By: Cristian Barrett Referrals: Joie Luz FNP [Primary Care Provider] - 7-10 days Roe Devi DO [Physician] - 04/28/24 Discharge Diet: As Directed Discharge Activity: Resume usual activity and Increase activity as tolerated Patient Instructions: Opioid Safety Activity Restrictions/Additional Instructions: Dysphagia level 4 pur?ed diet. Please check your blood pressure daily at home and maintain a blood pressure diary. Goal blood pressure less than 140/90 mmHg. Follow-up with a primary care provider within next 1 week for further adjustment of antihypertensive. Continue taking your Imdur and metoprolol as before. Amlodipine 10 mg daily has been added to your medication list. Check your blood sugars daily at home and maintain a blood sugar diary. As your oral intake will be limited for now take Lantus 5 units twice daily only to avoid hypoglycemia. For next 2 weeks take Lasix only if your body weight increases more than 5 pounds or increase swelling in lower limbs. Follow-up with Dr. Devi on the next appointment at the earliest. Discharge Attestations Time Spent in Discharge Care*: greater than 30 min Specific Discharge Activities: educating patient, discussing with pcp/other providers, discussing with machine adjuster leader case trim/social workers/dc planners, documenting/other paperwork and evaluating patient/reviewing data Status at Discharge: Cognitive status at discharge: cognitively intact, Behavioral status at discharge: cooperative, Functional status at discharge: independent ambulation, Overall status at discharge: patient is back to baseline Quality Metrics Clinical Quality Measures [ No reported AMI, CVA or VTE this stay] Coding Level of Care Code 18476 Total time (in minutes) for Discharge: 60 Diagnoses Intractable pain R52 Dehydration E86.0 Major depressive disorder, recurrent, moderate F33.1 Essential (primary) hypertension I10 Type 2 diabetes mellitus with hyperglycemia, with long-term current use of insulin E11.65; Z79.4 Diabetes mellitus type: type 2 Oropharyngeal dysphagia R13.12 Dysphagia type: oropharyngeal phase
== END 2024-04-25 15:00 | disposition home or self-care (01) | DRG 948 ==
LOC: ER 17:17 → MEDSURG 18:36
PROVIDERS: Family Medicine; Admitting Provider Student in an Organized Health Care Education/Training Program; Emergency Provider Emergency Medicine; PCP Nurse Practitioner Family; Visit Provider Student in an Organized Health Care Education/Training Program
DX: G89.18 Other acute postprocedural pain (principal); F33.9 Major depressive disorder, recurrent, unspecified; M54.2 Cervicalgia; E86.0 Dehydration; I10 Essential (primary) hypertension; E11.9 Type 2 diabetes mellitus without complications; R13.12 Dysphagia, oropharyngeal phase; R00.0 Tachycardia, unspecified; E83.52 Hypercalcemia; R05.9 Cough, unspecified; Z98.1 Arthrodesis status; Z87.891 Personal history of nicotine dependence; Z79.4 Long term (current) use of insulin; Z79.85 Long-term (current) use of injectable non-insulin antidiabetic drugs; Z79.84 Long term (current) use of oral hypoglycemic drugs
CPT/HCPCS: 36415; 36416; 71045; 80048; 80053; 80069; 82310; 82962; 83605; 83970; 84145; 85025; 85651; 86140; 87040; 92610; 96361; 96372; 96374; 96375; 99285; J1100; J1171; J1650; J1815; J2405; J7030; J7799

== ENCOUNTER → 2024-06-02 08:55 | Outpatient (BNVA) | payer BC, MEDICAID, SELFPAY | PROVIDERS: PCP Nurse Practitioner Family; Visit Provider Orthopaedic Surgery | DX: Z98.1 Arthrodesis status (principal) | CPT/HCPCS: 72040 ==

== ENCOUNTER 2024-06-27 14:00 | Oncology outpatient (recurring) (ONCR) | payer BC, MEDICAID, SELFPAY ==
[2024-06-16] MEDS: iron sucrose 200 MG in sodium chloride 0.9% (100 ml) 100 ML IV (13:56)
[2024-06-16 14:15] VITALS: BP 129/72; PULSE 72; RESP 18; TEMP 37.3; O2SAT 96
[2024-06-16 14:50] VITALS: BP 121/68; PULSE 72; RESP 18; TEMP 36.6; O2SAT 95
[2024-06-20] MEDS: iron sucrose 200 MG in sodium chloride 0.9% (100 ml) 100 ML IV (14:17)
[2024-06-20 14:53] VITALS: BP 137/80; PULSE 94; RESP 17; TEMP 36.9; O2SAT 95
[2024-06-22] MEDS: iron sucrose 200 MG in sodium chloride 0.9% (100 ml) 100 ML IV (14:31)
[2024-06-24] MEDS: iron sucrose 200 MG in sodium chloride 0.9% (100 ml) 100 ML IV (10:16)
[2024-06-27] MEDS: iron sucrose 200 MG in sodium chloride 0.9% (100 ml) 100 ML IV (15:05)
[2024-06-27 15:42] VITALS: BP 148/91; PULSE 85; O2SAT 94
== END 2024-07-04 23:59 | disposition home or self-care (01) ==
PROVIDERS: PCP Nurse Practitioner Family; Visit Provider Internal Medicine
DX: Z53.9 Procedure and treatment not carried out, unspecified reason; D50.9 Iron deficiency anemia, unspecified; Z79.899 Other long term (current) drug therapy
CPT/HCPCS: 96365; J1756

== ENCOUNTER → 2024-07-18 11:24 | Outpatient (BNVA) | payer OTHER, SELFPAY | PROVIDERS: PCP Nurse Practitioner Family; Visit Provider Nurse Practitioner Family | DX: M79.642 Pain in left hand (principal); M79.641 Pain in right hand; M19.042 Primary osteoarthritis, left hand | CPT/HCPCS: 73130 ==

== ENCOUNTER 2024-07-25 12:57 | Oncology outpatient (recurring) (ONCR) | payer OTHER, SELFPAY ==
[2024-07-25 13:20] LABS: Basophils % 0.4 %; Eosinophils # 0.1 10^3/uL (0.0-0.8); Eosinophils % 1.9 %; Hematocrit 36.5 % (36-47); Lymphocytes # 1.9 10^3/uL (0.8-4.8); Lymphocytes % 25.4 %; Mean Corpuscular HGB Conc 29.9 g/dL (30-55); Mean Corpuscular Hemoglobin 25.8 pg (27-33); Mean Corpuscular Volume 86.5 fl (85-98); Mean Platelet Volume 9.3 fL (7.4-10.4); Monocytes # 0.4 10^3/uL (0.2-0.9); Monocytes % 5.5 %; Neutrophils # 4.97 10^3/uL (1.8-7.7); Neutrophils % 66.1 %; Nucleated Red Blood Cells % 0 %; Platelet Count 242 10^3/cmm (157-399); Red Blood Count 4.22 10^6/uL (3.85-5.65); Red Cell Distribution Width 16.7 % (12.1-15.1); White Blood Count 7.51 10^3/uL (3.29-11.43)
[2024-07-25 13:35] LABS: Alanine Aminotransferase 15 U/L (0-33); Albumin Level 4.1 g/dL (3.5-5.2); Alkaline Phosphatase 97 U/L (35-105); Anion Gap 14.1 (5-19); Aspartate Amino Transferase 15 U/L (0-32); Blood Urea Nitrogen 17 mg/dL (6-20); Calcium 10.5 mg/dL (8.5-10.5); Carbon Dioxide 25 mmol/L (22-29); Chloride 104 mmol/L (98-107); Creatinine Clr Calc Pharmacy 118.4161; Ferritin 109 ng/mL (15-150); Globulin 3.4 g/dL (1.3-4.6); Glomerular Filtration Rate 127.6 mL/min (90-130); Glucose 134 mg/dL (65-115); Iron 37 ug/dL (37-145); Osmolality Calculated 292 mOsm/kg (285-295); Percent Saturation 11.4 % (20-50); Potassium 4.1 mmol/L (3.5-5.1); Sodium 139 mmol/L (136-145); Total Bilirubin 0.2 mg/dL (0.15-1.2); Total Iron Binding Capacity 323 mcg/dl; Total Protein 7.5 g/dL (6.6-8.7); Unsaturated Iron Binding 286 ug/dL (112-347)
== END 2024-08-03 23:59 | disposition home or self-care (01) ==
PROVIDERS: Internal Medicine Medical Oncology; PCP Nurse Practitioner Family; Visit Provider Internal Medicine
DX: D50.9 Iron deficiency anemia, unspecified (principal); R03.0 Elevated blood-pressure reading, without diagnosis of hypertension; Z79.899 Other long term (current) drug therapy; Z87.891 Personal history of nicotine dependence
CPT/HCPCS: 36415; 80053; 82728; 83540; 83550; 85025

== ENCOUNTER → 2024-08-04 13:35 | Outpatient (BNVA) | payer OTHER, SELFPAY | PROVIDERS: PCP Nurse Practitioner Family; Visit Provider Orthopaedic Surgery | DX: Z98.1 Arthrodesis status (principal) | CPT/HCPCS: 72040 ==

== ENCOUNTER 2024-08-25 06:53 | Oncology outpatient (recurring) (ONCR) | payer OTHER, SELFPAY ==
--- NOTE | 2024-08-25 07:47 | CT_ITS ---
WS: [id number] CT CERVICAL SPINE TECHNIQUE: Noncontrast CT of the cervical spine with coronal and sagittal reformatted images. CLINICAL INFORMATION: neck pain COMPARISON: MRI 2023 DLP: 147.[address] scans at [facility] use at least one of these dose optimization techniques: automated exposure control; mA and/or kV adjustment per patient size (includes targeted exams where dose is matched to clinical indication); or iterative reconstruction. FINDINGS: Postoperative changes are new from the prior MRI. ACDF C4-C7. Partial corpectomy with interbody strut graft at C6. Hardware appears in good position. No high- grade central canal stenosis. C2-C3: Normal. C3-C4: Mild facet arthropathy. Mild RIGHT bony foraminal narrowing. C4-C5: Moderate facet arthropathy. Mild RIGHT foraminal narrowing. Spinal canal is patent. C5-C6: Severe LEFT bony foraminal narrowing. Moderate facet arthropathy with uncovertebral joint hypertrophy. Moderate RIGHT bony foraminal narrowing. Mild central canal stenosis. C6-C7: Severe RIGHT greater than LEFT bony foraminal narrowing with facet arthropathy and uncovertebral joint hypertrophy. Endplate ridging. C7-T1: Spinal canal and foramen are patent. Small calcified LEFT thyroid nodule. Micronodular thyroid. Visualized posterior nasopharynx: Normal. Prevertebral soft tissues: Normal. CT/CT cervical spin wo con* [id number] IMPRESSION: 1. Postoperative changes are new since the prior MRI. Hardware appears in good position. No evidence of screw loosening. 2. No high-grade central canal stenosis. Mild central canal stenosis at C5-C6. 3. Multilevel moderate to severe bony foraminal narrowing worse LEFT C5-C6 and bilateral C6-7 worse on the RIGHT.
== END 2024-08-25 23:59 | disposition home or self-care (01) ==
LOC: RAD 06:55 → ONCMED 09:04
PROVIDERS: PCP Nurse Practitioner Family; Visit Provider Orthopaedic Surgery
DX: D50.9 Iron deficiency anemia, unspecified (principal); R03.0 Elevated blood-pressure reading, without diagnosis of hypertension; Z79.899 Other long term (current) drug therapy; Z87.891 Personal history of nicotine dependence
CPT/HCPCS: 72125

== ENCOUNTER 2024-09-05 13:33 | Oncology outpatient (recurring) (ONCR) | payer OTHER, SELFPAY ==
[2024-09-05 14:21] LABS: Basophils % 0.5 %; Eosinophils # 0.1 10^3/uL (0.0-0.8); Eosinophils % 1.3 %; Hematocrit 39.2 % (36-47); Lymphocytes # 2.2 10^3/uL (0.8-4.8); Lymphocytes % 25.9 %; Mean Corpuscular HGB Conc 30.1 g/dL (30-55); Mean Corpuscular Hemoglobin 26.2 pg (27-33); Mean Corpuscular Volume 86.9 fl (85-98); Mean Platelet Volume 9.9 fL (7.4-10.4); Monocytes # 0.5 10^3/uL (0.2-0.9); Monocytes % 5.5 %; Neutrophils # 5.62 10^3/uL (1.8-7.7); Neutrophils % 66.3 %; Nucleated Red Blood Cells % 0 %; Platelet Count 293 10^3/cmm (157-399); Red Blood Count 4.51 10^6/uL (3.85-5.65); Red Cell Distribution Width 14.9 % (12.1-15.1); White Blood Count 8.48 10^3/uL (3.29-11.43)
[2024-09-05 15:04] LABS: Folate Level 12.5 ng/mL (4.8-37.3)
[2024-09-05 15:42] LABS: Alanine Aminotransferase 12 U/L (0-33); Albumin Level 4.1 g/dL (3.5-5.2); Alkaline Phosphatase 129 U/L (35-105); Anion Gap 17.3 (5-19); Aspartate Amino Transferase 17 U/L (0-32); Blood Urea Nitrogen 19 mg/dL (6-20); Calcium 10.9 mg/dL (8.5-10.5); Carbon Dioxide 23 mmol/L (22-29); Chloride 105 mmol/L (98-107); Ferritin 61 ng/mL (15-150); Globulin 3.6 g/dL (1.3-4.6); Glomerular Filtration Rate 86.6 mL/min (90-130); Glucose 274 mg/dL (65-115); Iron 38 ug/dL (37-145); Osmolality Calculated 304 mOsm/kg (285-295); Percent Saturation 10.6 % (20-50); Potassium 4.3 mmol/L (3.5-5.1); Sodium 141 mmol/L (136-145); Total Bilirubin 0.2 mg/dL (0.15-1.2); Total Iron Binding Capacity 357 mcg/dl; Total Protein 7.7 g/dL (6.6-8.7); Unsaturated Iron Binding 319 ug/dL (112-347)
[2024-09-05 15:56] LABS: Vitamin B12 532 pg/mL (232-1245)
== END 2024-10-03 23:59 | disposition home or self-care (01) ==
PROVIDERS: Internal Medicine Medical Oncology; PCP Nurse Practitioner Family; Visit Provider Nurse Practitioner Family
DX: D50.9 Iron deficiency anemia, unspecified (principal)
CPT/HCPCS: 36415; 80053; 82607; 82728; 82746; 83540; 83550; 85025

== ENCOUNTER → 2024-12-01 13:12 | Outpatient (BNVA) | payer OTHER, SELFPAY | PROVIDERS: PCP Nurse Practitioner Family; Visit Provider Orthopaedic Surgery | DX: R29.898 Other symptoms and signs involving the musculoskeletal system (principal); Z98.1 Arthrodesis status | CPT/HCPCS: 72040 ==

== ENCOUNTER → 2024-12-27 12:44 | Outpatient (BNVA) | payer OTHER, SELFPAY | PROVIDERS: PCP Nurse Practitioner Family; Visit Provider Orthopaedic Surgery | DX: Z47.89 Encounter for other orthopedic aftercare (principal); Z98.1 Arthrodesis status | CPT/HCPCS: 72040 ==

== ENCOUNTER → 2025-01-31 13:20 | Outpatient (BNVA) | payer OTHER, SELFPAY | PROVIDERS: PCP Nurse Practitioner Family; Visit Provider Nurse Practitioner Family | DX: E55.9 Vitamin D deficiency, unspecified (principal); E11.9 Type 2 diabetes mellitus without complications | CPT/HCPCS: 80053; 80061; 82306; 82607; 83036; 83721; 84443; 85025 ==

== ENCOUNTER → 2025-02-14 16:04 | Outpatient (BNVA) | payer OTHER, SELFPAY | PROVIDERS: PCP Nurse Practitioner Family; Visit Provider Orthopaedic Surgery | DX: G56.03 Carpal tunnel syndrome, bilateral upper limbs (principal); G56.23 Lesion of ulnar nerve, bilateral upper limbs; Z98.1 Arthrodesis status | CPT/HCPCS: 72040 ==

== ENCOUNTER 2025-02-22 12:39 | Outpatient (CLI) | payer OTHER, SELFPAY ==
--- NOTE | 2025-02-22 12:40 | MM_ITS ---
WS: [id number] BILATERAL 3D TOMOSYNTHESIS DIGITAL SCREENING MAMMOGRAPHY WITH CAD CLINICAL INFORMATION: SCREENING HISTORY: Screening mammogram. No current complaints. COMPARISON: 2009 TECHNIQUE: Bilateral CC and MLO views. FINDINGS: The breasts are composed of heterogeneous fibroglandular density tissue, which can limit the detection of small underlying mass lesions. Nodular density upper outer RIGHT breast measuring 10 mm. Recommend further evaluation with RIGHT breast diagnostic mammography and ultrasound. Incidental punctate and lucent centered calcifications. Unremarkable LEFT breast. MM/MM [facility] tomosynthesis [id number] IMPRESSION: DENSITY: The breasts are heterogeneously dense, which may obscure small masses. BI-RADS: 0 - Incomplete: Need additional imaging evaluation FOLLOW UP: Need Additional Imaging Recommend RIGHT breast diagnostic mammography and ultrasound
== END 2025-02-22 12:40 | disposition home or self-care (01) ==
LOC: MOBLMAM 12:40
PROVIDERS: PCP Nurse Practitioner Family; Visit Provider Nurse Practitioner Family
DX: Z12.31 Encounter for screening mammogram for malignant neoplasm of breast (principal); R92.333 Mammographic heterogeneous density, bilateral breasts; R92.323 Mammographic fibroglandular density, bilateral breasts
CPT/HCPCS: 77063; 77067

== ENCOUNTER 2025-03-14 14:01 | Oncology outpatient (recurring) (ONCR) | payer OTHER, SELFPAY ==
--- NOTE | 2025-03-14 14:07 | MM_ITS ---
WS: [id number] RIGHT 3D TOMOSYNTHESIS DIGITAL MAMMOGRAPHY WITH CAD CLINICAL INFORMATION: N63.0 - Unspecified lump in unspecified breast HISTORY: Additional views COMPARISON: 02/22/2025 TECHNIQUE: 3 views of the right breast were obtained. FINDINGS: The right breast is composed of heterogeneous fibroglandular density tissue, which can limit the detection of small underlying mass lesions. A few nodular densities upper outer RIGHT breast persistent anteriorly on the spot compression views. Ultrasound described below. ULTRASOUND BREAST RIGHT TECHNIQUE: Ultrasound right breast focused area of concern. CLINICAL INFORMATION: N63.0 - Unspecified lump in unspecified breast FINDINGS: Ultrasound RIGHT breast 10 o'clock position 1 cm from the nipple. Lesion in the area of concern measuring 1.0 x 0.7 x 0.8 cm has a benign appearance and may represent an incidental lobulated lymph node or area of fibrocystic change. No other suspicious findings. Recommend return to annual screening mammography. MM/MM diag [facility] tomosynthesis [id number] IMPRESSION: DENSITY: The breasts are heterogeneously dense, which may obscure small masses. BI-RADS: 2 - Benign FOLLOW UP: 1 Year Follow-up Recommend return to annual screening mammography.
== END 2025-04-05 23:59 | disposition home or self-care (01) ==
LOC: ONCMED 14:02
PROVIDERS: PCP Nurse Practitioner Family; Visit Provider Nurse Practitioner Family
DX: N63.21 Unspecified lump in the left breast, upper outer quadrant (principal); R92.333 Mammographic heterogeneous density, bilateral breasts
CPT/HCPCS: 76642; 77061; G0279

== ENCOUNTER 2025-03-21 05:36 | Day surgery (SDC) | payer OTHER, SELFPAY ==
[2025-03-21] VITALS (12 sets, daily range): BP systolic 100–185; BP diastolic 53–114; PULSE 71–93; RESP 13–22; TEMP 36.2–37.6; O2SAT 91–97; BMI 31.7
--- NOTE | 2025-03-21 07:30 | ANES.PREANE2 ---
Pre-Anesthetic Assessment Height/Weight: Height 5 ft 1 in Weight 168 lb Temp Pulse Resp BP Pulse Ox O2 Del Method 99.6 F 74 17 169/97 95 Room Air 03/21/25 06:11 03/21/25 06:11 03/21/25 06:11 03/21/25 06:41 03/21/25 06:11 03/21/25 06:17 Preop Diagnosis: Carpal/cubital tunnel syndrome Operation Date: 03/21/25 08:40 Proposed Procedures p LEFT Carpal Tunnel Release(Left) - Kobi Camejo MD s LEFT Cubital Tunnel Release(Left) - Kobi Camejo MD Was Beta Kala taken within 24 hours: Yes Was Clonidine taken within 24 hours: N/A Last intake: Intake Last Liquid Date 03/20/25 Last Liquid Time 21:00 Last Solid Date 03/20/25 Last Solid Time 18:00 Social No alcohol and No tobacco Exam alert, oriented x 3, clear to auscultation bilaterally and regular rate & rhythm Airway Submandibular: within normal limits Cervical ROM: within normal limits Mallampati: Class I Comments: Comments: Edentulous Anesthetic Plan ASA status: 3 Anesthesia: Choice Other: No prior issues with anesthesia NPO since yesterday evening History of IDDM, preop BS 155 On chronic semaglutide. Last taken 03/12/2025 Hypertension on metoprolol. Preop BP 169/97 Current smoker HECTOR, cannot afford CPAP she states Labs reviewed from 01/31/2025 and acceptable for procedure EKG sinus rhythm Medications/Allergies Home Medications ?Medication ?Instructions ?Recorded ?Confirmed ?Last Taken ?Type aspirin 81 mg tablet,delayed 81 mg PO QDAY 04/26/19 03/20/25 02/18/25 History release (Aspir-) pen needle, diabetic 31 gauge x #150 ea 03/26/21 03/20/25 Unknown Rx 5/16 (BD Ultra-Fine Short Pen Needle) nitroglycerin 0.4 mg sublingual 0.4 mg sublingual Q5M PRN chest 12/31/22 03/20/25 Unknown Rx tablet pain #20 tabs metformin 500 mg tablet,extended 1,000 mg PO BID 04/15/24 03/20/25 03/20/25 History release 24 hr insulin glargine 100 unit/mL (3 10 unit (0.1 mL) SUBCUT QAM #15 mL 01/31/25 03/20/25 03/20/25 Rx mL) subcutaneous pen (Lantus Solostar U-100 Insulin) semaglutide 0.25 mg or 0.5 mg (2 0.25 mg (0.368 mL) SUBCUT .ONCE 02/01/25 03/20/25 03/12/25 Rx mg/3 mL) subcutaneous pen injector WEEKLY #3 mL (Ozempic) atorvastatin 10 mg tablet (Lipitor) 10 mg PO DAILY #90 tabs 02/02/25 03/20/25 03/20/25 Rx cholecalciferol (vitamin D3) 1,250 50,000 unit PO .weekly #12 caps 02/02/25 03/20/25 03/13/25 Rx mcg (50,000 unit) capsule albuterol sulfate 90 mcg/actuation 2 puff inhalation Q6H PRN 02/15/25 03/20/25 Unknown Rx aerosol inhaler (Ventolin HFA) shortness of breath or wheezing #8.5 grams trazodone 50 mg tablet 50 mg PO .HS PRN insomnia #30 tabs 02/15/25 03/20/25 03/20/25 Rx apremilast 30 mg tablet (Otezla) 30 mg PO BID 03/20/25 03/20/25 03/06/25 History cyclobenzaprine 10 mg tablet 10 mg PO BID PRN muscle spasms 03/20/25 03/20/25 03/20/25 History duloxetine 30 mg capsule,delayed 30 mg PO BID 03/20/25 03/20/25 03/20/25 History release fenofibrate nanocrystallized 145 145 mg PO DAILY 03/20/25 03/20/25 03/20/25 History mg tablet gabapentin 100 mg capsule 10 mg PO BID 03/20/25 03/20/25 03/20/25 History isosorbide mononitrate 60 mg 60 mg PO DAILY 03/20/25 03/20/25 03/20/25 History tablet,extended release 24 hr metoprolol tartrate 50 mg tablet 50 mg PO BID 03/20/25 03/21/25 03/21/25 History Allergies Allergy/AdvReac Type Severity Reaction Status Date / Time oxycodone Allergy ALGY-Difficulty Verified 03/21/25 06:10 Breathing lisinopril AdvReac cough Verified 03/21/25 06:10 Current Medications Generic Name Dose Route Start Last Admin Trade Name Freq PRN Reason Stop Dose Admin Sodium Chloride 1,000 mls @ 30 mls/hr 03/21/25 06:00 03/21/25 06:35 Sodium Chloride 0.9% IV 03/22/25 05:59 30 mls/hr .Q24H FREDERIC Administration PFSH Anesthesia Medical History (Updated 03/05/25 @ 21:27 by KRYS Croft) Helicobacter pylori gastritis Psychiatric care Hyperlipidemia, mixed Psoriasis of scalp Noncompliance with dietary restriction Cervical disc disorder with myelopathy of mid-cervical region Diabetes mellitus with hyperglycemia, with long-term current use of insulin Essential (primary) hypertension DDD (degenerative disc disease), cervical Vitamin D insufficiency Current smoker Obesity Surgical History Hx of hernia repair Laparoscopic repair of incarcerated umbilical hernia with mesh- 06/16/23 Dr Andrea History of tubal ligation History of appendectomy History of tonsillectomy at the age of 7 Family History Other Cancer Diabetes Stroke Social History Smoking and tobacco/nicotine status: former use of tobacco/nicotine Quit status (tobacco/nicotine): has quit using Year quit tobacco: 2021 Second hand smoke exposure: No Alcohol intake: never Substance/Drug Use: never Adopted: No Caregiver/support person: No Lives independently: Yes Household members: spouse Housing: House Marital status: Number of children: 4 service: No Current occupational status: unemployed Do you think of yourself as: Straight/Heterosexual Current gender identity: Female Data Anesthesia Cardiac Studies: Echocardiogram 10/06/23
[2025-03-21] MEDS: ceFAZolin 2,000 mg SDV 2000 MG IVP (07:57)
--- NOTE | 2025-03-21 08:02 | W.PM.OPSUD ---
Surgery/Procedure H&P Update DATE OF PROCEDURE: March 21, 2025 DATE H&P PERFORMED: 03/20/25 PREOP DIAGNOSIS: Carpal/cubital tunnel syndrome PLANNED PROCEDURE: Operation Date: 03/21/25 08:40 Proposed Procedures p LEFT Carpal Tunnel Release(Left) - Kobi Camejo MD s LEFT Cubital Tunnel Release(Left) - Kobi Camejo MD
[2025-03-21] MEDS: BUPivacaine 0.5% INJ 30 mL INJECTION (08:35)
[2025-03-21] MEDS: HYDROcodone-acetaminophen 5-325 mg Tablet 1 TAB PO (10:06)
--- NOTE | 2025-03-21 10:15 | SUR.PHASEII ---
Upon giving patient pain medication the pill was dropped on the floor, pill was wasted in pxyus with another nurse and tossed in sharps container. Second pill pulled from pyxus and administered to patient, but not scanned in computer
--- NOTE | 2025-03-21 10:18 | ANE.PACU2 ---
Inpatient post-anesthesia follow up: Airway intact: Yes Vital signs: Temperature 98.0 F Pulse Rate 81 Respiratory Rate 17 Blood Pressure 177/72 Pulse Oximetry 95 Oxygen Delivery Me thod Room Air Oxygen Flow Rate 2 Fraction of Inspir ed Oxygen Hydration adequate: Yes Nausea and vomiting: No Pain level: 2
--- NOTE | 2025-03-21 11:48 | PM.OP ---
Operative Report Date of procedure: March 21, 2025 Surgeon: Kobi Camejo MD Procedure: Preoperative diagnosis: Left carpal tunnel syndrome and left cubital tunnel syndrome Postoperative diagnosis: Same Procedure: Left carpal tunnel release as well as left cubital tunnel release Surgeon: Kobi Camejo MD Anesthesia: General anesthetic with local anesthesia. Patient's primary care had requested no general anesthetic however anesthesia felt that it was safe enough to proceed insert blood sugars were normal today and vital signs stable Tourniquet time: 23 minutes at 250 mmHg Indications: Jovanna is a 59-year-old white female is referred in the orthopedic clinics with nerve conduction test demonstrating compression of the ulnar nerve at the cubital tunnel of the left elbow as well as compression of median nerve at the carpal tunnel left hand. She had failed all conservative measures and therefore was offered releases of both of these areas. All risk benefits treatment alternatives discussed with her and she is agreeable to this at this time. She also had a discussion about the fact that it may take 17 weeks for this to completely resolve. She also had discussed with her that she may have permanent damage to the nerves already since both areas were severe compression. She is agreeable to proceed with surgical intervention Procedure: After obtaining her consent patient taken the operative room and placed in the op table supine position general anesthetic ministered. Once K[place]ky was achieved pneumatic cuffs placed on proximal left arm. Left arm was prepped and draped usual fashion. After surgical timeout and gravity exsanguination pneumatic cuff inflated to 250 mmHg. Palpation of the medial aspect of the left elbow was identified and medial epicondyle was identified. Curvilinear incision directly over this sharp dissection taken down to subcutaneous tissue electrocautery was for hemostasis. Blunt sharp dissection was done with Metzenbaum scissors all the way down to the fascial layers over the ulnar nerve. At this point small tenotomy scissors then used to dissect the fat fibrous tissue away from the nerve. Care was taken not to damage the nerve in any way. This is dissected away from the cubital tunnel itself and then dissected distally into the flexor muscle belly and proximally onto the arm removing all scarred and fibrous tissue off of the nerve until was free to be mobilized. There was quite a bit of scarring in the area and quite a bit of tissue compressing the nerve. Complete decompression was achieved. There was an closed with 3-0 Vicryl interrupted sutures and subcutaneous layer. Skin was then closed with running 3-0 Prolene horizontal mattress sutures. Marcaine plain for postoperative pain management. Subsequently carpal tunnel release was then done through a small incision on the volar surface of the wrist and hand. Longitudinal incision made just ulnar to mid palmar crease extending from the distal flexion crease of the wrist distally approxi-1-1/2 to 2 cm. Sharp dissection were taken all the way down to the transverse carpal ligament. This divided with #15 blade along the course of the skin incision until a contact was exposed then using Metzenbaum scissors and blunt sharp fashion it was divided proximally distally until adequate decompression was achieved. Wound was closed with 3-0 Prolene running horizontal mattress suture. This 2 had been injected with half percent Marcaine plain for postoperative pain management. Wounds are clean and dry dressed with Xeroform gauze sterile gauze dressing Kerlix wrap and Flash wrap for compression. Patient was awakened transferred recovery in stable condition
== END 2025-03-21 10:18 | disposition home or self-care (01) ==
PROVIDERS: PCP Nurse Practitioner Family; Visit Provider Orthopaedic Surgery
PROC: (CPT 64721; principal; 2025-03-21 08:30)
PROC: (CPT 64718; 2025-03-21 08:30)
DX: G56.02 Carpal tunnel syndrome, left upper limb (principal); G56.22 Lesion of ulnar nerve, left upper limb; E11.65 Type 2 diabetes mellitus with hyperglycemia; I10 Essential (primary) hypertension; G47.33 Obstructive sleep apnea (adult) (pediatric); Z79.82 Long term (current) use of aspirin; Z79.4 Long term (current) use of insulin; Z79.84 Long term (current) use of oral hypoglycemic drugs; A04.8 Other specified bacterial intestinal infections; E78.2 Mixed hyperlipidemia; F17.200 Nicotine dependence, unspecified, uncomplicated; E66.9 Obesity, unspecified; Z68.31 Body mass index [BMI] 31.0-31.9, adult; Z95.5 Presence of coronary angioplasty implant and graft
CPT/HCPCS: 64718; 64721; 36416; 82962; J0690; J1100; J2250; J2704; J3010; J3490; J7030; J9999